=== PATIENT | male | born 1945 | race Caucasian/White ===

== ENCOUNTER 2016-09-03 09:53 | Emergency (ER) | payer OTHER ==
[~2016-09-03] VITALS: Ht 182.9 cm; Wt 126.0 kg
[~2016-09-03 09:53] MED LIST: AMLO-110 PO; ASPI-435 PO; ATEN-173 PO; CLOP1TAB15 PO; FLV1 PO; HYDC25 PO; LISI10TA PO; NITR0.4S UT; OXGN; VTMB12 PO
[2016-09-03 10:03] VITALS: TEMP 36.3; Ht 182.9 cm; Wt 126.0 kg
--- NOTE | 2016-09-03 10:13 | EMERGENCY ROOM VISIT NOTE ---
ED Visit Note First contact with patient: 10:07 I have seen and examined this patient with Stephanie Choi and generally agree with the treatment plan as discussed. Problem List Medical Problems: (1) Coronary Atherosclerosis Of [place] Coronary Vessel Status: Chronic (2) Diab Nickie Wo Compl, Type Ii Or Unspec Type, Not Uncntrld Status: Chronic (3) Esophageal Reflux Status: Chronic (4) Heart Disease Nos Status: Chronic (5) History of left heart catheterization (LHC) Permanent Comment: 02/01/00 PTCA and Stent of 90% prox LAD lesion. 50%left circ untreated. 2013 LHC DESx2 to LAD Status: Chronic (6) Hyperlipidemia Nec/Nos Status: Chronic (7) Hypertension Nos Status: Chronic (8) Morbid Obesity Status: Chronic (9) MARKO (obstructive sleep apnea) Status: Chronic (10) Palpitations Status: Chronic Surgical Problems: (1) H/O colonoscopy Status: Chronic (2) History of cataract surgery Status: Chronic Current/Historical Medications Scheduled Amlodipine (Norvasc), 5 MG PO DAILY Aspirin (Aspirin 81), 81 MG PO QPM Atenolol (Tenormin), 25 MG PO QAM Clopidogrel (Plavix), 75 MG PO DAILY Cyanocobalamin (Vitamin B-12), 500 MCG PO QAM Folic Acid (Folic Acid), 1 MG PO QAM Hydrochlorothiazide (Hctz *), 12.5 MG PO QAM Lisinopril (Prinivil), 10 MG PO BID Nitroglycerin (Nitrostat), 0.4 MG UT PRN Oxygen (Oxygen), 3 LITERS NA HS Allergies Coded Allergies: Iodinated Contrast Media (Verified Allergy, Unknown, HIVES, 12/23/15) Shellfish (Verified Allergy, Unknown, UNKN, 12/23/15) Statins (Verified Allergy, Unknown, UNKN, 12/23/15) Vital Signs Date Time Temp Pulse Resp B/P Pulse Ox O2 Delivery O2 Flow Rate FiO2 09/03/16 10:03 36.3 55 18 102/69 93 Room Air Departure Information Referrals Zev Lemus M.D. (PCP) Patient Instructions [facility]
[2016-09-03] MEDS ORDERED: PRD/25 PO ×2 (10:18)
[2016-09-03] MEDS ORDERED: HYDR200T5 PO ×2 (10:18)
[2016-09-03] MEDS ORDERED: OXYC1TAB3 PO (10:20)
[2016-09-03] MEDS ORDERED: HYDR25TA5 PO ×2 (10:21)
--- NOTE | 2016-09-03 10:46 | DIAGNOSTIC IMAGING REPORT ---
LEFT ANKLE MIN 3 VIEWS ROUTINE CLINICAL HISTORY: Left ankle pain status post trauma COMPARISON: None. DISCUSSION: There is an acute oblique fracture of the distal fibula. There is disruption of the ankle mortise with posterior lateral displacement of the talus with respect to the tibia. There are multiple age-indeterminate bony fragments adjacent to the medial malleolus. There is bimalleolar soft tissue edema IMPRESSION: 1. Acute oblique fracture of the distal fibula 2. Age-indeterminate avulsion fractures at the level of the medial malleolar tip 3. Disruption of the ankle mortise Electronically signed by: Tulio Rockwell M.D. 09/03/2016 10:44 AM Dictated Date/Time: 09/03/2016 10:42 AM
--- NOTE | 2016-09-03 10:52 | DIAGNOSTIC IMAGING REPORT ---
LEFT FOOT MIN 3 VIEWS ROUTINE CLINICAL HISTORY: Left foot pain status post trauma COMPARISON: None DISCUSSION: There is suspected disruption of the ankle mortise as visualized in the AP view. There are advanced arthritic changes the level the first metatarsal phalangeal joint. No acute fractures of the foot proper are visualized. IMPRESSION: 1. No acute fractures of the foot proper are visualized 2. Moderately advanced arthritic changes at the level the first metatarsal phalangeal joint 3. Suspected disruption of the ankle mortise. Electronically signed by: Tulio Rockwell M.D. 09/03/2016 10:50 AM Dictated Date/Time: 09/03/2016 10:47 AM
[2016-09-03] MEDS ORDERED: MoRPHine SULFATE 2 MG/ML CARP ONE (11:58)
--- NOTE | 2016-09-03 12:46 | DIAGNOSTIC IMAGING REPORT ---
LEFT ANKLE MIN 3 VIEWS ROUTINE CLINICAL HISTORY: Fracture subluxation COMPARISON: None. DISCUSSION: There is been interval reduction of the previous described subluxation. There is persistent mild widening of the medial ankle mortise. There is an oblique fracture of the distal fibula. There are multiple bony fragments adjacent to the medial malleolus. There is been interval application of a fiberglass cast IMPRESSION: 1. Interval reduction of the previous described fracture subluxation. There is mild residual widening of the medial ankle mortise. Electronically signed by: Tulio Rockwell M.D. 09/03/2016 12:43 PM Dictated Date/Time: 09/03/2016 12:42 PM
--- NOTE | 2016-09-03 12:56 | EMERGENCY ROOM VISIT NOTE ---
History First contact with patient: 10:07 Chief Complaint: FOOT PAIN Stated Complaint: LEFT FOOT POSSIBLY BROKEN FROM FALL History of Present Illness The patient is a 71 year old male who presents to the Emergency Room with complaints of left foot and ankle injury. The patient states last night he was outdoors and fell injuring his left foot and ankle. The patient denies any dizziness prior to the fall. The patient states he had to crawl into the house. The called a family member to help get him up off the floor. They did not call 911. The patient states that his foot seems like he does not have control of where it goes. The patient admits to some numbness in his foot. He took an OxyIR at 4 AM for the pain. He states since that time he feels slightly dizzy. He states the pain is very minimal since taken OxyIR. The patient denies any chest pain or shortness of breath. The patient has seen Dr. Dorsey in the past for right knee surgery. Review of Systems 10 system review was performed and was negative unless stated otherwise history of present illness. Past Medical/Surgical History Medical Problems: (1) Coronary Atherosclerosis Of [place] Coronary Vessel (2) Diab Nickie Wo Compl, Type Ii Or Unspec Type, Not Uncntrld (3) Esophageal Reflux (4) Heart Disease Nos (5) History of left heart catheterization (LHC) (6) Hyperlipidemia Nec/Nos (7) Hypertension Nos (8) Morbid Obesity (9) MARKO (obstructive sleep apnea) (10) Palpitations Surgical Problems: (1) H/O colonoscopy (2) History of cataract surgery Family History FH: heart disease Social History Smoking Status: Never Smoker Marital Status: Housing Status: lives with significant other Occupation Status: retired Current/Historical Medications Scheduled Amlodipine (Norvasc), 5 MG PO DAILY Aspirin (Aspirin 81), 81 MG PO QPM Atenolol (Tenormin), 25 MG PO QAM Clopidogrel (Plavix), 75 MG PO DAILY Hydrochlorothiazide (Hydrochlorothiazide), 12.5 MG PO QAM Hydroxychloroquine Sulfate (Plaquenil), 200 MG PO HS Lisinopril (Prinivil), 10 MG PO BID Nitroglycerin (Nitrostat), 0.4 MG UT PRN Oxygen (Oxygen), 3 LITERS NA HS Prednisone (Prednisone), 7.5 MG PO QAM Scheduled PRN Oxycodone Ir (Roxicodone Ir), 10 MG PO Q6H PRN for Pain Allergies Coded Allergies: Iodinated Contrast Media (Verified Allergy, Unknown, HIVES, 09/03/16) Shellfish (Verified Allergy, Unknown, UNKN, 09/03/16) Statins (Verified Allergy, Unknown, UNKN, 09/03/16) Physical Exam Vital Signs Date Time Temp Pulse Resp B/P Pulse Ox O2 Delivery O2 Flow Rate FiO2 09/03/16 11:12 55 107/76 95 Room Air 09/03/16 10:16 57 09/03/16 10:03 36.3 55 18 102/69 93 Room Air Physical Exam GENERAL: 71-year-old obese white male appears in no acute distress. MENTAL Status: Patient is alert and oriented 3. EYES: PERRLA. EOMs intact. NECK: Supple, no lymphadenopathy noted. No carotid bruits noted. LUNGS: Clear auscultation without wheezes rales or rhonchi. CARDIAC: Regular rate and rhythm without murmur. Pulses is full and equal throughout. LEFT FOOT/ANKLE: The patient has diffuse edema of the ankle and foot. No erythema noted. Capillary reflex is 2+. Pedal pulses in place. The patient sensation is intact to touch. Medical Decision & Procedures ER Provider Diagnostic Interpretation: LEFT ANKLE MIN 3 VIEWS ROUTINE CLINICAL HISTORY: Fracture subluxation COMPARISON: None. DISCUSSION: There is been interval reduction of the previous described subluxation. There is persistent mild widening of the medial ankle mortise. There is an oblique fracture of the distal fibula. There are multiple bony fragments adjacent to the medial malleolus. There is been interval application of a fiberglass cast IMPRESSION: 1. Interval reduction of the previous described fracture subluxation. There is mild residual widening of the medial ankle mortise. Electronically signed by: Tulio Rockwell M.D. 09/03/2016 12:43 PM Dictated Date/Time: 09/03/2016 12:42 PM LEFT ANKLE MIN 3 VIEWS ROUTINE CLINICAL HISTORY: Left ankle pain status post trauma COMPARISON: None. DISCUSSION: There is an acute oblique fracture of the distal fibula. There is disruption of the ankle mortise with posterior lateral displacement of the talus with respect to the tibia. There are multiple age-indeterminate bony fragments adjacent to the medial malleolus. There is bimalleolar soft tissue edema IMPRESSION: 1. Acute oblique fracture of the distal fibula 2. Age-indeterminate avulsion fractures at the level of the medial malleolar tip 3. Disruption of the ankle mortise Electronically signed by: Tulio Rockwell M.D. 09/03/2016 10:44 AM Dictated Date/Time: 09/03/2016 10:42 AM LEFT FOOT MIN 3 VIEWS ROUTINE CLINICAL HISTORY: Left foot pain status post trauma COMPARISON: None DISCUSSION: There is suspected disruption of the ankle mortise as visualized in the AP view. There are advanced arthritic changes the level the first metatarsal phalangeal joint. No acute fractures of the foot proper are visualized. IMPRESSION: 1. No acute fractures of the foot proper are visualized 2. Moderately advanced arthritic changes at the level the first metatarsal phalangeal joint 3. Suspected disruption of the ankle mortise. Electronically signed by: Tulio Rockwell M.D. 09/03/2016 10:50 AM Dictated Date/Time: 09/03/2016 10:47 AM Medications Administered Medications (Trade) Dose Ordered Sig/Bee Route Start Time Stop Time Status Last Admin Dose Admin Morphine Sulfate (MoRPHine SULFATE INJ) 4 mg STK-MED ONCE .ROUTE 09/03/16 11:58 09/03/16 11:59 DC 09/03/16 11:56 2 MG ECG Indication: other (dizziness) Rhythm: sinus bradycardia Findings: ST elevation Change: no significant change ED Course The patient was evaluated. The patient was placed on a monitor. EKG was ordered and interpreted as above. The patient does have ST elevation in the inferior leads but as compared to prior EKG from August 2013 this is unchanged. X-rays of the foot and ankle were ordered and interpreted by the radiologist as above with fracture and dislocation of the ankle joint. The patient was offered pain medication but declined. The patient was independently evaluated by Dr. Nunez who agrees with treatment plan. Orthopedics was consulted. Orthopedics evaluated the patient and reduced the dislocation and the patient was placed in a splint. Please see orthopedics note. The patient has crutches at home to aid in ambulation. Postreduction films revealed reduction of the dislocation. The patient was discharged home in stable condition. Medical Decision Differential diagnosis include ankle fracture, ankle dislocation, foot fracture , contusion Impression Primary Impression: Ankle dislocation Additional Impression: Fibula fracture Departure Information Dispostion Home / Self-Care Condition GOOD Referrals Oesterling, Zev,M.D. (PCP) Adams Cid D.O. Forms HOME CARE DOCUMENTATION FORM, IMPORTANT VISIT INFORMATION Patient Instructions ED Splint Care [facility] Additional Instructions Tylenol as needed for pain. Stop Plavix as directed by orthopedics. Keep leg elevated whenever possible. Use crutches to aid in ambulation. Keep splint as dry as possible. Appointment with Dr. Cid on September 07 at 10:40 AM Problem Qualifiers Primary Impression: Ankle dislocation Encounter type: initial encounter Laterality: left Qualified Codes: S93.05XA - Dislocation of left ankle joint, initial encounter Additional Impression: Fibula fracture Encounter type: initial encounter Fibula location: distal Fracture type: closed Laterality: left
--- NOTE | 2016-09-03 13:24 | CONSULTATION REPORT ---
DATE OF CONSULTATION: 09/03/2016 REASON FOR CONSULT: Left ankle fracture. HISTORY OF PRESENT ILLNESS: The patient is a 71-year-old white male who states that he was on yard swing in the evening and when he got up he lost his balance and the swing came back and hit him and knocking him to the ground. He twisted his left ankle and had immediate pain and swelling in the ankle. He could not bear weight on it. He states that he crawled approximately 40 yards to his house until he was able to get help. He stayed in the house overnight and kept his foot elevated, but it continued to have severe pain and came into the Emergency Room this morning. X-rays were taken and were found to have a left distal fibula fracture with also some small avulsion type fractures of the medial malleolar tip and some disruption of the ankle mortise. We were then asked to see this patient for further care. The patient denies loss of consciousness and denies any chest pain or shortness of breath prior to or after the fall. PAST MEDICAL HISTORY: CAD with stent placement in the past, diabetes mellitus, type 2, GERD, rheumatoid arthritis, morbid obesity, hypertension, hyperlipidemia, obstructive sleep apnea. PAST SURGICAL HISTORY: Right total knee arthroplasty. He has had a previous left ankle fracture in the past as well as a right ankle fracture in the past. Stent placement as noted above and history of colonoscopy. MEDICATIONS: Amlodipine 5 mg p.o. daily, aspirin 81 mg p.o. q.p.m., atenolol 25 mg p.o. q.a.m., clopidogrel 75 mg p.o. daily, vitamin B12 500 mcg p.o. q.a.m., folic acid 1 mg p.o. q.a.m., hydrochlorothiazide 12.5 mg p.o. q.a.m., lisinopril 10 mg p.o. b.i.d., nitroglycerin 0.4 mg sublingual p.r.n., oxygen 3 liters per nasal cannula at bedtime. ALLERGIES: IODINATED CONTRAST, SHELLFISH AND STATINS. FAMILY HISTORY: Noncontributory. SOCIAL HISTORY: The patient has used alcohol on occasion. Former tobacco user. REVIEW OF SYSTEMS: The patient has had no recent fevers, chills, unexplained weight loss or weight gain. No flu or cold-like symptoms. No increased cough or sputum production. No noticeable increase in shortness of breath at rest. No recent chest pain. No recent irregular heart. No abdominal pain. No unusual nausea, vomiting or diarrhea. No hematuria, pyuria, or dysuria. No seizures, no dizziness or lightheadedness. PHYSICAL EXAMINATION: VITAL SIGNS: Most recent vital signs showed temperature 36.4, pulse 66, respirations 18, BP on entering the ER was 133/84, pulse ox was 99 on 2 liters of O2 per nasal cannula. GENERAL: The patient is lying in bed. He is awake and alert, oriented x3, and pain appears to be controlled at this time. EXTREMITIES: Examination of his left lower extremity, he has his hip in external rotation and his ankle is swollen and has some mild ecchymosis noted. Both the medial and lateral malleoli are felt and are tender on palpation and he has moderate swelling noted of the ankle at this time. Capillary refill of the toes are less than 2 seconds. Toes are cool to the touch and dorsalis pedis pulse is strong. He is able to move his toes at this time and has some decreased sensation of which he has had for some time now with his history of diabetes. No pain in the left knee or hip. Right lower extremity is essentially benign at this time and he has no complaints and range of motion is within normal limits. Upper extremities are benign at this time and he denies any thoracic, lumbar or cervical neck pain from the fall. NEUROVASCULAR: The patient is alert and oriented x3. No gross motor deficits or sensory deficits are noted other than some mild numbness in his toes, which he has had from neuropathy and limited range of motion of his left ankle due to a fracture. X-RAY ASSESSMENT: Left oblique, lateral malleolar fracture along with avulsion type fractures of the medial malleolus with disruption of the ankle mortise. ASSESSMENT: Left distal fibula fracture along with avulsion fractures of the medial malleolus of the left ankle. PLAN: After examining the patient, he had to be placed into a posterior splint. He was then at that time given 2 mg of IV morphine and gentle longitudinal traction was placed and the ankle was placed in neutral position and a posterior splint was applied with a medial/lateral gutter splint as well. The patient tolerated the procedure well and he had no difference in sensation of his toes post-reduction and cap refill is less than 2 seconds and he continued to have a strong pulse in the dorsalis pedis. Plans will be for the patient to stop taking his Plavix at this point in time and he is to see Dr. Cid next September 07 at 10:40 a.m. for followup. The patient will likely need ORIF of the left distal fibula fracture. I will also notify Dr. Cespedes, his accounting professor to let him know of pending surgery coming up and we will be stopping his Plavix at this point in time and he may contact the patient to adjust medications as needed. TOSHIA
[2016-09-03 13:30] VITALS: BP 148/73; PULSE 60; O2SAT 97
[2016-09-07] MEDS ORDERED: MULTTAB58 PO ×2 (14:13)
[2016-09-07] MEDS ORDERED: OMEG1360 PO ×2 (14:13)
[2016-09-07] MEDS ORDERED: NAPR1TAB9 PO ×2 (14:13)
[2016-09-10] MEDS ORDERED: OXYC-57 PO ×2 (09:56)
== END 2016-09-03 13:30 | disposition home or self-care (01) ==
LOC: C.EDB 09:55 → C.EDC 13:30
DX: S82.52XA Displaced fracture of medial malleolus of left tibia, initial encounter for closed fracture (principal); S82.892A Other fracture of left lower leg, initial encounter for closed fracture; W22.8XXA Striking against or struck by other objects, initial encounter; W19.XXXA Unspecified fall, initial encounter; M19.072 Primary osteoarthritis, left ankle and foot; E11.9 Type 2 diabetes mellitus without complications; E66.01 Morbid (severe) obesity due to excess calories; G47.33 Obstructive sleep apnea (adult) (pediatric); I10 Essential (primary) hypertension; I25.10 Atherosclerotic heart disease of native coronary artery without angina pectoris; E78.5 Hyperlipidemia, unspecified; Z79.899 Other long term (current) drug therapy

== ENCOUNTER → 2016-09-10 | Day surgery (SDC) | payer OTHER ==
[2016-09-07 14:57] LABS: BASO % 0.4 %; BASO ABS # 0.04 K/uL (0-0.2); COMPLETE YES; EOS % 2.5 %; HEMATOCRIT 45.3 % (42-52); IG% 0.4 %; LYMPH ABS # 1.41 K/uL (1.2-3.4); MEAN CELL VOLUME 93.2 fL (80-100); MEAN CORPUSCULAR HEMOGLOBIN 32.1 pg (25-34); MEAN CORPUSCULAR HGB CONC 34.4 g/dl (32-36); MEAN PLATELET VOLUME 9.6 fL (7.4-10.4); MONO % 6.3 %; NEUT % 76.4 %; PLATELET COUNT 270 K/uL (130-400); RED BLOOD COUNT 4.86 M/uL (4.7-6.1)
[2016-09-07 15:26] LABS: URINE APPEARANCE CLEAR (CLEAR); URINE BILIRUBIN NEG (NEG); URINE COLOR YELLOW; URINE NITRITE NEG (NEG); URINE PH 5.5 (4.5-7.5); URINE SPECIFIC GRAVITY 1.014 (1.000-1.030); UROBILINOGEN NEG (NEG)
[2016-09-07 15:27] LABS: BLOOD UREA NITROGEN 12 mg/dl (7-18); BUN/CREATININE RATIO 12.7 (10-20); CALCIUM 9.8 mg/dl (8.5-10.1); CARBON DIOXIDE 28 mmol/L (21-32); CHLORIDE 100 mmol/L (98-107); CREATININE 0.95 mg/dl (0.60-1.40); GLUCOSE 173 mg/dl (70-99); POTASSIUM 4.5 mmol/L (3.5-5.1); SODIUM 135 mmol/L (136-145)
[2016-09-07 15:36] LABS: MANUAL MICROSCOPIC REQUIRED? NO; REVIEW REQ? NO
[2016-09-08 07:39] VITALS: BMI 38.0
--- NOTE | 2016-09-09 22:11 | HISTORY & PHYSICAL EXAMINATION ---
DATE OF ADMISSION: 09/10/2016 SUBJECTIVE AND CHIEF COMPLAINT: Left ankle pain. HISTORY OF PRESENT ILLNESS: This is a patient who had an injury to his left ankle and then noted he had significant deformity. He was taken to the Emergency Room where he was noted to have a lateral malleolus fracture but also an ankle dislocation. A reduction was performed and he was placed into a splint. He is now being set up for surgical treatment. PAST MEDICAL HISTORY: History of [place] in 08/2013, hypertension, hypercholesterolemia, sleep apnea, history of cardiac stent in 08/2013, diabetes, rheumatoid arthritis, acid reflux, obesity. SOCIAL HISTORY: The patient denies tobacco use. He has approximately 6 alcoholic drinks per week. FAMILY HISTORY: Noncontributory. PAST SURGICAL HISTORY: Knee replacement and cardiac stent. ALLERGIES: SHELLFISH, STATIN DRUGS, ROLAN INHIBITORS. CURRENT MEDICATIONS: Amlodipine 5 mg 1 p.o. daily, HCTZ 12.5 mg 1 p.o. daily, atenolol 25 mg 1 p.o. b.i.d., lisinopril 10 mg 1 p.o. daily, prednisone 7.5 mg 1 p.o. daily, aspirin 81 mg p.o. daily, Plaquenil 200 mg 1 p.o. at bedtime, multivitamin p.o. daily, Plavix 75 mg 1 p.o. daily which was stopped 6 days ago, and Victoza 0.6 mg/0.1 mL, inject 0.2 mL subcu daily. OBJECTIVE PHYSICAL EXAMINATION: GENERAL: The patient is alert and oriented x3. He is in no acute distress. He is a well-dressed, well-nourished 71-year-old male whose affect is appropriate. CARDIOVASCULAR: Heart has a regular rhythm and rate without murmurs. LUNGS: Clear to auscultation bilateral. Dorsalis pedis and posterior tib pulse +2/4. Cap refill is less than 2 seconds. LYMPHATIC: No evidence of any swollen lymph nodes. MUSCULOSKELETAL: The patient is nonweightbearing on the left lower extremity. Upon inspection of left lower extremity, he is noted to have moderate swelling of left ankle. There is mild to moderate ecchymosis of the ankle. No range of motion or strength testing was performed. He is noted to have tenderness on both the medial and lateral aspect of the ankle. SKIN: There are no scars, rashes or ulcers noted. NEUROLOGIC: Sensation normal and intact distally. X-RAY EXAM: Multiple views of left ankle demonstrate a displaced lateral malleolus fracture with opening of the ankle mortise. There also appears to be an undisplaced moderate size avulsion fracture of the medial malleolus. ASSESSMENT AND DIAGNOSES: 1. Left ankle lateral malleolus fracture. 2. Medial malleolus avulsion fracture. 3. Syndesmotic disruption. PLAN: Above assessment was discussed with the patient. At this time, it was recommended the patient undergo left ankle ORIF of the lateral malleolus fracture, ORIF of the syndesmotic rupture, and excision of medial malleolus avulsion fracture. All potential risks, benefits, complications, alternatives and rehab have been discussed with the patient. At this time, he wishes to proceed with the surgery as scheduled. He has been scheduled for surgery on 09/10/2016 with the plan to restart his Plavix and aspirin on postop day #1.
[~2016-09-10] VITALS: Ht 182.9 cm; Wt 126.4 kg
[~2016-09-10] MED LIST changes: +BACITRACIN 50,000 UNITS IR ONE; +BUPIVACAINE 0.5 % 5 MG/1 ML PF 10ML VIAL ONE; +BUPIVACAINE/EPINEPHRINE 0.5% MPF 1:200,000 30 ML VIAL ONE; +CEFAZOLIN 3000 MG/65 ML D5W IV SCH; +CLONIDINE HCL 100 MCG/ML SYRINGE ONE; +DEXAMETHASONE SOD INJ 4 MG/ML VIAL ONE; +EpHEDrine SULFATE 50MG/5ML SYR ONE; +FENTANYL CITRATE INJ 50 MCG/1 ML 2 ML VIAL IV PRN; +FENTANYL CITRATE INJ 50 MCG/1 ML 2 ML VIAL ONE; +GLYCOPYRROLATE INJ 0.2 MG/ML VIAL ONE; +HYDR200T5 PO; +HYDR25TA5 PO; +LACTATED RINGER'S 1000ML 1,000 ML IV PRN; +LACTATED RINGER'S 1000ML 1,000 ML IV SCH; +LIDOCAINE HCL 2% 2 ML VIAL (20MG/ML) ONE; +MIDAZOLAM HCL 1 MG/ML 2ML VIAL ONE; +MULTTAB58 PO; +NAPR1TAB9 PO; +NEOSTIGMINE METHYLSULFATE 5 MG/5 ML SYR ONE; +NURSING VERBAL MED ORDER ONE; +OMEG1360 PO; +ONDANSETRON INJ 2 MG/ML 2 ML VIAL IV PRN; +ONDANSETRON INJ 2 MG/ML 2 ML VIAL ONE; +OXYC-57 PO; +OXYC1TAB3 PO; +OXYCODONE/ACETAMINOPHEN 5-325 TAB ONE; +OXYCODONE/ACETAMINOPHEN 5-325 TAB PO PRN; +PRD/25 PO; +PROPOFOL IV EMULSION 10 MG/ML 20 ML VIAL IV ONE; +ROCURONIUM BROMIDE 10 MG/ML 5 ML VIAL ONE
[2016-09-10 05:50] VITALS: BP 137/75; PULSE 59; TEMP 36.8; O2SAT 96; Ht 182.9 cm; Wt 126.4 kg
--- NOTE | 2016-09-10 07:33 | History & Physical Bridge Note ---
H&P Re-Evaluation Bridge Note: I have examined the patient, reviewed the History & Physical and in the interval since the performance of the History & Physical I have noted the following changes of clinical significance: No changes noted
--- NOTE | 2016-09-10 09:47 | [facility] Post Operative Brief Note ---
Immediate Operative Summary Operative Date Sep 10, 2016. Pre-Operative Diagnosis Left ankle lateral malleolus fracture; Medial malleolus avulsion fracture; Syndesmotic disruption Post-Operative Diagnosis Left ankle lateral malleolus fracture; Medial malleolus avulsion fracture; Syndesmotic disruption, Tear Deltoid Ligament Procedure(s) Performed Left Ankle Open Reduction Internal Fixation Lateral Malleolus Fracture; Open Reduction Internal Fixation Syndesmosis Rupture; Excision Medial Malleolus Avulsion Fracture; Repair of Deltoid Ligament Surgeon Dr. Mamadou Cid Infant And Toddler Teacher Surgeon(s) Todd Cifuentes PA-C Estimated Blood Loss 10mL Findings See Dict Specimens none per surgeon Drains None Anesthesia GLMA w/ Popliteal Block and Saphenous block Complication(s) None Disposition Recovery Room / PACU
--- NOTE | 2016-09-10 10:01 | Discharge Instructions ---
Discharge Instructions Date of Service Sep 10, 2016. Admission Reason for Admission: Left Ankle Lateral Malleolus Fracture, Medial Mall Discharge Discharge Diagnosis / Problem: left lateral malleolus fracture, medial malleolus avulsion fracture Discharge Goals Goal(s): Decrease discomfort, Improve function Activity Recommendations Activity Limitations: per Instructions/Follow-up section Weightbearing Status: Left non-weightbearing . Instructions / Follow-Up Instructions / Follow-Up ACTIVITY RECOMMENDATIONS: Limitations: No weight bearing to affected limb at all times. SPECIAL CARE INSTRUCTIONS: * Some drainage onto the dressing is normal and is no cause for alarm. * Some swelling is natural especially after walking. * When resting, keep your foot elevated above the level of your heart. * Call [facility] if you notice: -Increased drainage -Fever over 101 degrees F -Severe constant pain * You may restart your Plavix and Aspirin prescriptions tomorrow, 09.11.16. BANDAGE: * Leave bandage/cast in place unless otherwise directed. * Keep bandage/cast dry at all times. FOLLOW UP VISIT WITH DR. STERN If appointment is not already scheduled: Please call [facility] after you get home today to schedule a follow-up appointment for [address] Stern at . Current Hospital Diet Patient's current hospital diet: Discharge Diet Recommended Diet: Regular Diet Procedures Procedures Performed: Left Ankle Open Reduction Internal Fixation Lateral Malleolus Fracture; Open Reduction Internal Fixation Syndesmosis Rupture; Excision Medial Malleolus Avulsion Fracture; Repair of Deltoid Ligament Pending Studies Studies pending at discharge: no Medical Emergencies . Who to Call and When: Medical Emergencies: If at any time you feel your situation is an emergency, please call 911 immediately. . Non-Emergent Contact Non-Emergency issues call your: Surgeon Call Non-Emergent contact if: temperature is above 101, your pain is not controlled, your pain is worsening . "Provider Documentation" section prepared by Todd Cifuentes. . VTE Core Measure Inpt VTE Proph given/why not?: SCD's
--- NOTE | 2016-09-10 10:24 | OPERATIVE REPORT ---
DATE OF OPERATION: 09/10/2016 PREOPERATIVE DIAGNOSES: 1. Left displaced lateral malleolus fracture. 2. Syndesmotic disruption. 3. Avulsion fracture of the medial malleolus. POSTOPERATIVE DIAGNOSIS: Same as above. In addition, deltoid ligament tear. PROCEDURE: 1. Open reduction internal fixation left lateral malleolus fracture. 2. Open reduction internal fixation and syndesmotic disruption. 3. Excision avulsion fracture of the medial malleolus. 4. Repair of deltoid ligament tear. SURGEON: Dr. Cid. PRODUCTION CONTROL TECHNOLOGIST: Todd Cifuentes PA-C who was present for patient positioning, sterile prep and drape, management of retractors and instruments. He was present through the critical portions of the case including wound closure, application of sterile dressing and transport of the patient to recovery. ANESTHESIA: General LMA with popliteal block with supplemental saphenous block. SPECIMENS: None. DRAINS: None. COMPLICATIONS: None. BLOOD LOSS: 10 mL. PERTINENT HISTORY: This is a 71-year-old gentleman who sustained a twisting fall on his left ankle, unable to ambulate, seen in the Emergency Department. Radiographs and noted to have a displaced lateral malleolus fracture, medial malleolar avulsion fracture and syndesmotic disruption. He was placed in a splint and referred to orthopedics and at that point the patient was then scheduled for surgery as indicated. All potential risks, benefits, complications, alternatives, rehab, potential for incomplete relief of symptoms, need for further surgery, DVT, PE, , persistent pain, swelling, scarring, weakness, neurovascular injury, wound complications, hardware breakage, nonunion, malunion were discussed with the patient. The patient decided to proceed with the procedure as indicated. OPERATION AND FINDINGS: PROCEDURE: After popliteal block was administered, the patient was taken to the operative suite, placed supine on the operating room table. After review of the consent and identification of proper operative site, the patient was anesthetized, LMA was placed. Tourniquet was placed high on the left thigh over cast padding. Left lower extremity was then sterilely prepped and draped in the usual fashion, elevated and exsanguinated with Esmarch bandage, tourniquet inflated to 350 mmHg. Next, a 15 blade scalpel was used to make an incision centered over the lateral malleolus laterally. The incision was deepened through subcutaneous tissue. Meticulous hemostasis was ensured with electrocautery. Full thickness skin flaps were developed. Sensory cutaneous nerves identified, freed, retracted, and protected when possible. Next, the peroneal tendons were identified, retracted and protected. Next, periosteum overlying the fracture was identified and incised with 15 blade scalpel extending proximally and distally. The fracture ends were then carefully dissected. Next Weitlaner retractor was placed in the incision for exposure and then the fracture ends were then carefully debrided and irrigated with copious amounts of sterile normal saline and a small dental pick. Next, reduction was performed with large bone forceps which were used to stabilize and align the fracture in near anatomic position under live fluoroscopic assistance followed by placement of a single 2.5 mm lag screw from anterior to posterior. Next, a 10-hole 1/3 tubular locking Synthes stainless steel plate was then contoured and then firmly affixed to the lateral aspect of the malleolus using a single nonlocking compression screw. Next, the remainder of the locking screws were applied with the exception of a central hole left at the level of the syndesmosis. Next, stress x-rays were obtained noting instability of the syndesmosis and then a single 4.5 mm large fragment screw was placed with the foot held in neutral dorsiflexion crossing from the lateral malleolus through the fibula and into the tibia. Next, the wound was irrigated with sterile normal saline until clear. Next, the deep soft tissue was closed over the plate with 2-0 Vicryl. The dermis was closed using buried interrupted 3-0 Vicryl, skin was closed with 4-0 nylon. Next, a 15 blade scalpel was used to make an incision over the medial malleolus. A curvilinear incision was made with a 15 blade scalpel. Careful dissection was performed with Metzenbaum scissors and forceps. Electrocautery was used to assure hemostasis. Next, the deltoid ligament was noted to be torn as well as the anterior medial aspect of the joint capsule. This was carefully elevated. Next, the large avulsion fracture fragment from the medial malleolus was identified and removed with a rongeur. After this was completed, the wound was copiously irrigated with sterile normal saline until clear, then the deltoid ligament anterior medial aspect of the capsule was then closed using #2 Ultrabraid sutures x2. Next, final irrigation was performed with sterile normal saline. The dermis was closed using buried interrupted 3-0 Vicryl, skin was closed using 4-0 nylon. Next, approximately 15-20 mL of 0.5% Marcaine with epinephrine was injected around the saphenous nerve medially and around the anna marie-incisional region on the medial aspect of the ankle for postop pain and bleeding control. Next, sterile compressive dressing was applied as well a bulky Wilfrid Knutson plaster splint placed in neutral dorsiflexion. The tourniquet was released. The patient was awakened and taken to recovery in stable condition. I attest to the content of the Intraoperative Record and any orders documented therein. Any exceptio ns are noted below.
--- NOTE | 2016-09-10 10:27 | DIAGNOSTIC IMAGING REPORT ---
LEFT ANKLE MIN 3 VIEWS ROUTINE CLINICAL HISTORY: Postop examination COMPARISON: 09/03/2016 DISCUSSION: The fine bony details obscured by an overlying plaster cast. The distal fibular fracture has been fixated with a lateral metallic plate and multiple screws. There is additional transverse screw traversing the distal tibia fibular syndesmosis. The ankle mortise appears intact. IMPRESSION: Interval reduction of the fracture subluxation with internal fixation as described above. Electronically signed by: Tulio Rockwell M.D. 09/10/2016 10:26 AM Dictated Date/Time: 09/10/2016 10:18 AM
[2016-09-10 10:30] VITALS: BP 99/50; PULSE 58; TEMP 36.4; O2SAT 93
--- NOTE | 2016-09-10 10:36 | Anesthesiology Progress Note ---
Anesthesia Post Op Note Date & Time Sep 10, 2016 at 10:35 Vital Signs Pain Intensity: 1 Vital Signs Past 12 Hours Date Time Temp Pulse Resp B/P Pulse Ox O2 Delivery O2 Flow Rate FiO2 09/10/16 10:25 36.5 62 18 105/66 94 Room Air 09/10/16 10:20 64 18 110/64 95 Room Air 09/10/16 10:10 62 18 114/71 99 Mask 10 09/10/16 10:00 66 18 115/71 99 Mask 10 09/10/16 09:51 36.3 73 18 125/78 99 Mask 10 09/10/16 05:50 36.8 59 20 137/75 96 Room Air Notes Mental Status: alert / awake / arousable, participated in evaluation Pt Amnestic to Procedure: Yes Nausea / Vomiting: adequately controlled Pain: adequately controlled Airway Patency, RR, SpO2: stable & adequate BP & HR: stable & adequate Hydration State: stable & adequate Anesthetic Complications: no major complications apparent Pt doing well.
[2016-09-10 11:00] VITALS: BP 98/55; PULSE 57; TEMP 36.6; O2SAT 92
--- NOTE | 2016-09-10 11:19 | DIAGNOSTIC IMAGING REPORT ---
LEFT ANKLE MIN 3 VIEWS ROUTINE CLINICAL HISTORY: ORIF LEFT ANKLE FX Fluoroscopy time: 22 seconds. 2 fluoroscopic spot images. FINDINGS: There is a lateral cortical plate transfixed with screws bridging a distal fibular fracture. There is also a single syndesmotic screw. The hardware is intact. The alignment is anatomic. 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 IMPRESSION: Fluoroscopy provided for internal fixation of a lateral malleolus fracture. Electronically signed by: Cornell Morrison M.D. 09/10/2016 11:17 AM Dictated Date/Time: 09/10/2016 11:16 AM
[2016-09-10 11:30] VITALS: BP 92/60; PULSE 61; O2SAT 92
== END | disposition home or self-care (01) ==
LOC: C.ACU 05:25
PROVIDERS: ATTEND Orthopaedic Surgery Sports Medicine
DX: S82.842A Displaced bimalleolar fracture of left lower leg, initial encounter for closed fracture (principal); S93.05XA Dislocation of left ankle joint, initial encounter; I10 Essential (primary) hypertension; E78.00 Pure hypercholesterolemia, unspecified; E11.9 Type 2 diabetes mellitus without complications; I25.2 Old myocardial infarction; K21.9 Gastro-esophageal reflux disease without esophagitis; G47.30 Sleep apnea, unspecified; M06.9 Rheumatoid arthritis, unspecified; E66.9 Obesity, unspecified; Z95.5 Presence of coronary angioplasty implant and graft; Z79.82 Long term (current) use of aspirin; Z79.899 Other long term (current) drug therapy; W18.30XA Fall on same level, unspecified, initial encounter

== ENCOUNTER 2020-01-03 13:49 | Inpatient (IN) ==
--- OUTSIDE RECORDS SUMMARY | 2020-01-03 13:51 | External Medical Summary | Continuity of Care Document ---
:1945 Author Name Rozina Haywood Address Unavailable Unavailable , Care Team Providers Name Role Phone Nette Haywood Unavailable [email or web address] Unavailable Unavailable Problems Active medical history not documented Allergies and Adverse Reactions Allergy history not documented Medications Medications not documented Procedures Procedures not documented Immunizations Immunizations not documented Plan of Treatment Planned Observations Planned Goals not documented Results No Known Results Results not documented
[2020-01-03] MEDS ORDERED: ASPIRIN CHEW 324 MG PO STA ×2 (13:58→14:07)
[2020-01-03] MEDS ORDERED: SODIUM CHLORIDE 0.9% 500 ML IV SCH (14:00)
[2020-01-03] MEDS: NITROGLYCERIN SL 0.4 MG/TAB TAB SL PRN ×2 (14:10→14:38)
--- NOTE | 2020-01-03 14:11 | XRay Report ---
XR chest 1V portable HISTORY: 74 years-old Male Chest Pain . Acute atypical chest pain COMPARISON: Chest radiograph 02/28/2018 TECHNIQUE: Portable AP view of the chest FINDINGS: Cardiomediastinal and hilar silhouettes are within normal limits. No pneumothorax, pleural effusion, airspace consolidation or overt pulmonary edema. Degenerative changes of the shoulders and spine. Mil d right hemidiaphragmatic elevation. IMPRESSION: No acute process. ACT 112: Negative or not required by law. The above report was generated using voice recognition software. It may contain grammatical, syntax o r spelling errors. Electronically signed by: Carter Dumont M.D. 01/03/2020 2:09 PM
--- NOTE | 2020-01-03 14:12 | Emergency Department Note ---
Impression & Plan Non-ST elevation ME (NSTEMI), Chest pain, Elevated troponin, Unstable angina pectoris ED Provider Note NAME: ELVIS SPEARS AGE: 74 SEX: M : 1945 ARRIVES VIA: Walk-In INFORMANT: Patient ED PROVIDER(S): Neftaly Durham DO CHIEF COMPLAINT: Chest pain HPI: Patient is a 74-year-old male who presents the ER for precordial chest pain. He describes as a heaviness/tightness in the middle of his left chest. Goes up to his left jaw and feels as though a ball is in his jaw. He has pain in his left arm. This feels consistent with his 2 previous heart attacks. He notes it started earlier this morning. He has no shortness of breath. No belly pain nausea vomiting or diarrhea. No dysuria urgency or frequency. No other exacerbating or remitting factors. He did not take aspirin today. ROS: See above HPI for pertinent positives & negatives. A total of 10 systems reviewed and were otherwise negative. PAST MEDICAL HISTORY:See Below PAST SURGICAL HISTORY:See Below FAMILY HISTORY:See Below SOCIAL HISTORY:See Below HOME MEDICATIONS:See Below ALLERGIES:See Below VITALS:See Below PHYSICAL EXAMINATION: GENERAL: Sitting up in bed, alert, slightly ill-appearing, disheveled, mildly diaphoretic EYE EXAM: normal conjunctiva. LUNGS: Clear to auscultation. Normal chest wall mechanics HEART: no murmurs, S1 normal and S2 normal ABDOMEN: abdomen soft, non-tender, normo-active bowel sounds, no masses, no rebound or guarding. BACK: Back is symmetrical on inspection and there is no deformity, no midline tenderness, no CVA tenderness. SKIN: no rashes and no bruising UPPER EXTREMITIES: upper extremities are grossly normal. LOWER EXTREMITIES: No pitting edema. Calves are equal bilateral NEURO EXAM: Normal sensorium, cranial nerves II-XII grossly intact, normal speech, no gross weakness of arms, no gross weakness of legs. MEDICAL DECISION MAKING: Patient is a 72-year-old male with a previous history of ME who presents the ER for precordial chest pain which feels like his previous MIs. IV was established blood work was obtained. EKG showed changes in the high lateral leads. He was taken and seen in a 1. Patient was given aspirin and nitro. His chest pain waxed and waned for over an hour in the ER as were able to get him chest pain- free multiple times. His EKG is actually improved until his fifth EKG which showed worsening ST segment elevations in the inferior leads. Just prior to this fifth EKG I had called cardiology and patient was given heparin bolus and heparin drip for the unstable angina as it had come back again. Dr. Cespedes who promptly evaluated the patient at bedside. With the persistent chest pain after aspirin, multiple rounds of nitro and IV heparin drip and bolus in combination with dynamic EKG changes patient was taken to the [facility] emergently. Patient denied any history of brain bleeds, coughing up blood, vomiting blood, urinating blood, recent surgery or trauma. Triage Nursing notes reviewed. Prior medical records reviewed Vital Signs: reviewed and remarkable for hypertensive Differential diagnosis: Differential diagnoses includes but is not limited to acute coronary syndrome, myocardial infarction, pericarditis, pulmonary embolus, aortic dissection, pneumonia, pneumothorax, musculoskeletal, shingles, esophageal. ER treatment provided: See below Diagnostics interpreted by me: ECG: Sinus rhythm rate of 64 Normal axis Inferior Q waves with ST segment elevations T WI in aVL with ST depressions TWI in the septal leads. Changes in aVL and V2 were negative. Cardiac Monitoring: An order was placed for continuous cardiac monitoring. The monitor shows a rate of 63 with sinus rhythm. Laboratory studies: As stated above and show below. Imaging studies: See below Consultation(s): Discussed with Dr. Jose Francisco Cespedes who evaluated the patient at bedside patient was taken to the cardiac [facility]. ED COURSE: Procedures: none Critical Care: I have personally spent 75 minutes of critical care time in the direct management of this patient. This includes bedside care, interpretation of diagnostic studies, and testing, discussion with consultants, patient, and family members, and other required patient management activities. This 75 minutes is in excess of all separately billable procedures. Past Med/Surg History Medical History (Updated 01/03/20 @ 19:50 by Neftaly Durham DO) Diabetes mellitus, type 2 History of left heart catheterization (LHC) "02/01/00 PTCA and Stent of 90% prox LAD lesion. 50%left circ untreated. 2013 LHC DESx2 to LAD " Hx of pancreatitis 02/2018 [facility] Myocardial Infarction 2013 OR 2014-NO RECENT CHEST PAIN PER SPOUSE On anticoagulant therapy DAILY PLAVIX SINCE 1999 On home oxygen therapy HS ONLY MARKO (obstructive sleep apnea) Rheumatoid arthritis Sleep apnea CAN'T TOLERATE CPAP -USES OXYGEN 2L/MIN NC Surgical History History of cardiac cath -1 [facility] History of cataract surgery R/L History of open reduction and internal fixation (ORIF) procedure LEFT ANKLE History of total knee replacement RIGHT Family History Other No significant family history Social History Smoking Status: Never smoker Second Hand Exposure: No; Do You Dip or Chew Tobacco: No; Tobacco Cessation Education Requested by Patient: No Hx Alcohol Use: No Hx Substance Use: No Preferred Language: Chadian Communication Ability: Effective Margin Trimmer Required: No Beliefs That Will Affect Care: None Current Living Situation: Spouse Other Information That Helps Us Care for You: No Feels Safe at Home: Yes Safety Concerns: Feels Safe At This Time Allergies Allergies Allergy/AdvReac Type Severity Reaction Status Date / Time Iodinated Contrast Media Allergy Intermediate HIVES Verified 01/03/20 15:02 shellfish derived Allergy Intermediate hives Verified 01/03/20 15:02 meperidine AdvReac Mild Nausea Verified 01/03/20 15:02 methotrexate AdvReac Mild Nausea Verified 01/03/20 15:02 oxycodone AdvReac Mild n/v Verified 01/03/20 15:02 Bebmmni-Ial-Aib Reductase AdvReac Mild myalgias Verified 01/03/20 15:02 Inhibitor Home Meds Home Medications Medication Instructions Recorded Confirmed aspirin 81 mg PO QPM 02/28/18 01/03/20 atenolol 25 mg PO BID 02/28/18 01/03/20 clopidogrel [Plavix] 75 mg PO QAM 02/28/18 01/03/20 lisinopril 10 mg PO BID 02/28/18 01/03/20 nitroglycerin [Nitrostat] 0.4 mg SUBLINGUAL UD PRN 02/28/18 01/03/20 Enbrel 0 ml SUBCUT WK 04/14/18 01/03/20 metformin 500 mg PO PM 04/14/18 01/03/20 amlodipine [Norvasc] 5 mg PO DAILY 01/03/20 01/03/20 prednisone 5 mg PO .TAPER UD 01/03/20 01/03/20 sildenafil (pulm.hypertension) 20 mg PO UD 01/03/20 01/03/20 [Revatio] Previous Rx's Medication Instructions Recorded sennosides-docusate sodium 1 tab PO DAILY PRN #10 tab 03/03/18 [Senokot-S] Results & Data (ED) Vital Signs Vital Signs - 24 hr 01/03/20 13:50 01/03/20 13:58 01/03/20 14:02 Temperature 36.8 C Temperature Source Oral Pulse Rate 63 61 Pulse Rate [Apical] Pulse Rate from SpO2 Sensor 61 Respiratory Rate 18 18 Blood Pressure 189/90 H Blood Pressure [Left Arm] Blood Pressure Mean 123 Blood Pressure Mean [Left Arm] Pulse Oximetry 96 95 100 Oxygen Delivery Method Room Air Nasal Cannula Nasal Cannula Oxygen Flow Rate 2 2 Sepsis Recent Fever Within 48 Hours No Sepsis New/Unexplained Change in Mental Status No Sepsis Action Taken by Nursing No Action Required 01/03/20 14:09 01/03/20 14:10 01/03/20 14:14 Temperature Temperature Source Pulse Rate 58 L 59 L Pulse Rate [Apical] 67 Pulse Rate from SpO2 Sensor 59 L 59 L Respiratory Rate 17 19 18 Blood Pressure 168/113 H Blood Pressure [Left Arm] 168/113 H Blood Pressure Mean 151 Blood Pressure Mean [Left Arm] 131 Pulse Oximetry 97 98 96 Oxygen Delivery Method Nasal Cannula Nasal Cannula Nasal Cannula Oxygen Flow Rate 2 2 2 Sepsis Recent Fever Within 48 Hours Sepsis New/Unexplained Change in Mental Status Sepsis Action Taken by Nursing 01/03/20 14:16 01/03/20 14:20 01/03/20 14:25 Temperature Temperature Source Pulse Rate 64 59 L Pulse Rate [Apical] Pulse Rate from SpO2 Sensor 64 60 Respiratory Rate 20 19 Blood Pressure 143/78 H Blood Pressure [Left Arm] Blood Pressure Mean 105 Blood Pressure Mean [Left Arm] Pulse Oximetry 96 96 96 Oxygen Delivery Method Nasal Cannula Nasal Cannula Oxygen Flow Rate 2 2 2 Sepsis Recent Fever Within 48 Hours Sepsis New/Unexplained Change in Mental Status Sepsis Action Taken by Nursing 01/03/20 14:30 01/03/20 14:45 01/03/20 15:00 Temperature Temperature Source Pulse Rate 56 L 59 L 57 L Pulse Rate [Apical] Pulse Rate from SpO2 Sensor 56 L 59 L 57 L Respiratory Rate 18 21 20 Blood Pressure 144/74 H 138/75 139/79 Blood Pressure [Left Arm] Blood Pressure Mean 93 102 91 Blood Pressure Mean [Left Arm] Pulse Oximetry 99 96 97 Oxygen Delivery Method Oxygen Flow Rate Sepsis Recent Fever Within 48 Hours Sepsis New/Unexplained Change in Mental Status Sepsis Action Taken by Nursing 01/03/20 15:15 Temperature Temperature Source Pulse Rate 58 L Pulse Rate [Apical] Pulse Rate from SpO2 Sensor 59 L Respiratory Rate 26 H Blood Pressure 149/78 H Blood Pressure [Left Arm] Blood Pressure Mean 101 Blood Pressure Mean [Left Arm] Pulse Oximetry 96 Oxygen Delivery Method Oxygen Flow Rate Sepsis Recent Fever Within 48 Hours Sepsis New/Unexplained Change in Mental Status Sepsis Action Taken by Nursing Laboratory Data Result diagrams: 01/03/20 14:00 01/03/20 14:00 Lab Results 01/03/20 01/03/20 01/03/20 Range/Units 14:00 14:00 14:00 WBC 10.25 (4.8-10.8) K/uL RBC 5.10 (4.7-6.1) M/uL Hgb 15.8 (14.0-18.0) g/dL Hct 46.4 (42-52) % MCV 91.0 (80-100) fL MCH 31.0 (25-34) pg MCHC 34.1 (32-36) g/dL RDW Std Deviation 43.8 (36.4-46.3) fL RDW Coeff of Jay Jay 13.3 (11.5-14.5) % Plt Count 275 (130-400) K/uL MPV 9.8 (7.4-10.4) fL Immature Gran % (Auto) 0.3 % Neut % (Auto) 57.1 % Lymph % (Auto) 31.8 % Bertie % (Auto) 7.8 % Eos % (Auto) 2.6 % Baso % (Auto) 0.4 % Neut # (Auto) 5.85 (1.4-6.5) K/uL Lymph # (Auto) 3.26 (1.2-3.4) K/uL Bertie # (Auto) 0.80 H (0.11-0.59) K/uL Eos # (Auto) 0.27 (0-0.5) K/uL Baso # (Auto) 0.04 (0-0.2) K/uL Immature Gran # (Auto) 0.03 H (0.00-0.02) K/uL PT 11.0 (9.0-12.0) Seconds INR 1.0 (0.9-1.1) APTT 25.1 (21.0-31.0) Seconds PTT Ratio 0.9 Activ Coag Time Kaolin (94-140) SECONDS Sodium 135 L (136-145) mmol/L Potassium 4.0 (3.5-5.1) mmol/L Chloride 99 (98-107) mmol/L Carbon Dioxide 30 (21-32) mmol/L Anion Gap 6.0 (3-11) BUN 19 H (7-18) mg/dl Creatinine 1.15 (0.6-1.4) mg/dl Est Cr Clr Drug Dosing 78.2 ml/min Est GFR ( Amer) 73.3 Est GFR (Non-Af Amer) 63.2 BUN/Creatinine Ratio 16.1 (10-20) Glucose 199 H (70-99) mg/dl Calcium 9.4 (8.5-10.1) mg/dl Total Bilirubin 0.7 (0.2-1) mg/dl AST 18 (15-37) U/L ALT 36 (12-78) U/L Alkaline Phosphatase 103 (45-117) U/L Troponin I 0.023 (0-0.045) ng/ml Total Protein 8.5 H (6.4-8.2) gm/dl Albumin 3.5 (3.4-5.0) gm/dl Globulin 4.9 H (2.5-4.0) gm/dl Albumin/Globulin Ratio 0.7 L (0.9-2) Lipase 158 (73-393) U/L 01/03/20 01/03/20 Range/Units 16:28 17:00 WBC (4.8-10.8) K/uL RBC (4.7-6.1) M/uL Hgb (14.0-18.0) g/dL Hct (42-52) % MCV (80-100) fL MCH (25-34) pg MCHC (32-36) g/dL RDW Std Deviation (36.4-46.3) fL RDW Coeff of Jay Jay (11.5-14.5) % Plt Count (130-400) K/uL MPV (7.4-10.4) fL Immature Gran % (Auto) % Neut % (Auto) % Lymph % (Auto) % Bertie % (Auto) % Eos % (Auto) % Baso % (Auto) % Neut # (Auto) (1.4-6.5) K/uL Lymph # (Auto) (1.2-3.4) K/uL Bertie # (Auto) (0.11-0.59) K/uL Eos # (Auto) (0-0.5) K/uL Baso # (Auto) (0-0.2) K/uL Immature Gran # (Auto) (0.00-0.02) K/uL PT (9.0-12.0) Seconds INR (0.9-1.1) APTT (21.0-31.0) Seconds PTT Ratio Activ Coag Time Kaolin 136 230 H (94-140) SECONDS Sodium (136-145) mmol/L Potassium (3.5-5.1) mmol/L Chloride (98-107) mmol/L Carbon Dioxide (21-32) mmol/L Anion Gap (3-11) BUN (7-18) mg/dl Creatinine (0.6-1.4) mg/dl Est Cr Clr Drug Dosing ml/min Est GFR ( Amer) Est GFR (Non-Af Amer) BUN/Creatinine Ratio (10-20) Glucose (70-99) mg/dl Calcium (8.5-10.1) mg/dl Total Bilirubin (0.2-1) mg/dl AST (15-37) U/L ALT (12-78) U/L Alkaline Phosphatase (45-117) U/L Troponin I (0-0.045) ng/ml Total Protein (6.4-8.2) gm/dl Albumin (3.4-5.0) gm/dl Globulin (2.5-4.0) gm/dl Albumin/Globulin Ratio (0.9-2) Lipase (73-393) U/L Administered Medications Discontinued Medications Aspirin (Aspirin Chew 324 Mg) 324 mg PO NOW STA Stop: 01/03/20 13:59 Last Admin: 01/03/20 14:05 Dose: 324 mg Documented by: [id number] Aspirin (Aspirin Chew 324 Mg) 324 mg PO NOW STA Stop: 01/03/20 14:08 Last Admin: 01/03/20 14:23 Dose: Not Given Documented by: [id number] Clopidogrel Bisulfate (Clopidogrel Bisulfate 300 Mg Tab) Confirm Administered Dose 300 mg .ROUTE .STK-MED ONE Stop: 01/03/20 16:56 Last Admin: 01/03/20 17:28 Dose: 300 mg Documented by: [id number] Diphenhydramine HCl (Diphenhydramine Hcl 50 Mg/Ml Vial) Confirm Administered Dose 50 mg .ROUTE .STK-MED ONE Stop: 01/03/20 15:31 Last Admin: 01/03/20 16:11 Dose: 50 mg Documented by: [id number] Fentanyl Citrate (Fentanyl Citrate 100 Mcg/2 Ml Vial) Confirm Administered Dose 100 mcg .ROUTE .STK-MED ONE Stop: 01/03/20 15:25 Last Increment: 01/03/20 16:53 Dose: 62.5 mcg Documented by: [id number] Heparin Sodium (Porcine) (Heparin Sod (Porcine) 1000 Unit/Ml 10 Ml Vial) Confirm Administered Dose 10,000 units .ROUTE .STK-MED ONE Stop: 01/03/20 15:03 Last Admin: 01/03/20 15:04 Dose: 4,000 units Documented by: [id number] Cosigned by: [id number] Heparin Sodium (Porcine) (Heparin (Porcine) 1000 Unit/Ml 10 Ml ([facility] Use Only)) Confirm Administered Dose 10,000 units .ROUTE .STK-MED ONE Stop: 01/03/20 15:25 Last Admin: 01/03/20 16:54 Dose: 8,000 units Documented by: [id number] Heparin Sodium (Porcine) (Heparin (Porcine) 1000 Unit/Ml 10 Ml ([facility] Use Only)) Confirm Administered Dose 10,000 units .ROUTE .STK-MED ONE Stop: 01/03/20 17:05 Last Admin: 01/03/20 17:29 Dose: 3,000 units Documented by: [id number] Heparin Sodium/Dextrose (Heparin Iv Low Dose With Bolus) 1 ea N/A NOW STA; Protocol Stop: 01/03/20 14:56 Last Admin: 01/03/20 15:08 Dose: Not Given Documented by: [id number] Heparin Sodium/Sodium Chloride (Heparin In Nss Infusion 1000 Unit/500 Ml (2 U/Ml) Bag) Confirm Administered Dose 3,000 units IV .STK-MED ONE Stop: 01/03/20 15:26 Last Admin: 01/03/20 16:10 Dose: 3,000 units Documented by: [id number] Hydrocortisone Sodium Succinate (Hydrocortisone Sod Succinate 100 Mg/2 Ml Vial) 100 mg IV NOW STA Stop: 01/03/20 16:05 Last Admin: 01/03/20 16:11 Dose: Not Given Documented by: [id number] Sodium Chloride (Nss) 500 mls @ 999 mls/hr IV .Q31M JACE Stop: 01/03/20 14:30 Last Infusion: 01/03/20 14:38 Dose: 0 mls/hr Documented by: [id number] Admin: 01/03/20 14:07 Dose: 999 mls/hr Documented by: [id number] Heparin Sodium/Dextrose (Heparin Sodium/Dextrose) 25,000 units in 500 mls @ 20 mls/hr IV .Q24H JACE; Protocol Stop: 02/02/20 14:59 Last Titration: 01/03/20 18:44 Dose: 0 units/hr, 0 mls/hr Documented by: [id number] Cosigned by: [id number] Admin: 01/03/20 15:04 Dose: 1,000 units/hr, 20 mls/hr Documented by: [id number] Cosigned by: [id number] Methylprednisolone (Methylprednisolone 125 Mg/2 Ml Vial) Confirm Administered Dose 125 mg .ROUTE .STK-MED ONE Stop: 01/03/20 15:31 Last Admin: 01/03/20 16:11 Dose: 125 mg Documented by: [id number] Midazolam HCl (Midazolam Hcl 1 Mg/Ml 2ml Vial) Confirm Administered Dose 2 mg .ROUTE .STK-MED ONE Stop: 01/03/20 15:26 Last Admin: 01/03/20 16:54 Dose: 2 mg Documented by: [id number] Midazolam HCl (Midazolam Hcl 1 Mg/Ml 2ml Vial) Confirm Administered Dose 2 mg .ROUTE .STK-MED ONE Stop: 01/03/20 17:11 Last Increment: 01/03/20 17:29 Dose: 1 mg Documented by: [id number] Nicardipine HCl (Nicardipine Hcl Inj 2.5 Mg/Ml 10 Ml Amp) Confirm Administered Dose 25 mg .ROUTE .STK-MED ONE Stop: 01/03/20 15:25 Last Admin: 01/03/20 16:08 Dose: 25 mg Documented by: [id number] Nitroglycerin (Nitroglycerin Sl 0.4 Mg/Tab Tab) 0.4 mg SL PRN PRN PRN Reason: Allergic Reaction Stop: 02/02/20 14:06 Last Admin: 01/03/20 14:38 Dose: 0.4 mg Documented by: [id number] Admin: 01/03/20 14:10 Dose: 0.4 mg Documented by: [id number] Nitroglycerin/Dextrose (Nitroglycerin/D5w 100mcg/Ml 20ml Syr) Confirm Administered Dose 2,000 mcg .ROUTE .STK-MED ONE Stop: 01/03/20 16:27 Last Admin: 01/03/20 16:54 Dose: 2,000 mcg Documented by: [id number] Discharge Plan Visit Data Chief Complaint: Chest Pain Stated Complaint: HEART ATTACK ED Provider: Neftaly Durham Discharge Problem: Non-ST elevation ME (NSTEMI), Chest pain, Elevated troponin, Unstable angina pectoris Discharge Instructions Interventions: ED Discharge Assessment Last Done: 01/03/20 15:27 Discharge Problem: Chest pain Qualifiers: Chest pain type: unspecified Qualified Code(s): R07.9 - Chest pain, unspecified
[2020-01-03 14:14] LABS: Basophils # (auto) 0.04 K/uL (0-0.2); Basophils % (auto) 0.4 %; Eosinophils # (auto) 0.27 K/uL (0-0.5); Eosinophils % (auto) 2.6 %; Hematocrit (blood only) 46.4 % (42-52); Hemoglobin 15.8 g/dL (14.0-18.0); Immature Granulocytes # (auto) 0.03 K/uL (0.00-0.02); Immature Granulocytes % (auto) 0.3 %; Lymphocytes # (auto) 3.26 K/uL (1.2-3.4); Lymphocytes % (auto) 31.8 %; Mean Corpuscular Hgb Conc 34.1 g/dL (32-36); Mean Platelet Volume 9.8 fL (7.4-10.4); Monocytes % (auto) 7.8 %; Neutrophils # (auto) 5.85 K/uL (1.4-6.5); Neutrophils % (auto) 57.1 %; Platelet Count 275 K/uL (130-400); RDW Coefficient of Variation 13.3 % (11.5-14.5); RDW Standard Deviation 43.8 fL (36.4-46.3); White Blood Count 10.25 K/uL (4.8-10.8)
[2020-01-03 14:27] LABS: Partial Thromboplastin Ratio 0.9; Partial Thromboplastin Time 25.1 Seconds (21.0-31.0)
[2020-01-03 14:33] LABS: Albumin Level 3.5 gm/dl (3.4-5.0); BUN Creatinine Ratio 16.1 (10-20); Calcium 9.4 mg/dl (8.5-10.1); Creatinine Clr Calc Pharmacy 78.2 ml/min; Est GFR (African American) 73.3; Est GFR (Non-African American) 63.2
[2020-01-03 14:38] LABS: Albumin Globulin Ratio 0.7 (0.9-2); Bilirubin,Total 0.7 mg/dl (0.2-1); Globulin 4.9 gm/dl (2.5-4.0); Total Protein 8.5 gm/dl (6.4-8.2); Troponin I 0.023 ng/ml (0-0.045)
[2020-01-03] MEDS ORDERED: Heparin IV Low Dose WITH Bolus STA (14:55)
[2020-01-03] MEDS ORDERED: HEPARIN SODIUM/DEXTROSE 25,000 UNITS/500 ML BAG IV SCH (15:00)
[2020-01-03] MEDS ORDERED: HEPARIN SOD (PORCINE) 1000 UNIT/ML 10 ML VIAL ONE (15:02)
[2020-01-03] MEDS ORDERED: NiCARDipine HCL INJ 2.5 MG/ML 10 ML AMP ONE (15:24)
[2020-01-03] MEDS ORDERED: fentaNYL citrate 100 MCG/2 ML VIAL ONE (15:24)
[2020-01-03] MEDS ORDERED: HEPARIN (PORCINE) 1000 UNIT/ML 10 ML (CATH LAB USE ONLY) ONE ×2 (15:24→17:04)
[2020-01-03] MEDS ORDERED: MIDAZOLAM HCL 1 MG/ML 2ML VIAL ONE ×2 (15:25→17:10)
[2020-01-03] MEDS ORDERED: DiphenhydrAMINE HCL 50 MG/ML VIAL ONE (15:30)
[2020-01-03] MEDS ORDERED: methylPREDNISolone 125 MG/2 ML VIAL ONE (15:30)
--- NOTE | 2020-01-03 15:38 | Cardiology Consultation ---
Date of Consultation January 03, 2020 Assessment & Plan (1) Precordial chest pain: Patient is a 74-year-old male with known coronary disease with prior coronary inventions left anterior descending in 1999 and 2013 with residual left circumflex disease. Patient presents today with acute onset substernal pain radiating to left shoulder waxing and waning in severity with relief with nitroglycerin sublingual. EKGs demonstrate subtle changes in lead II only initial troponin not elevated but detected. Findings may be exacerbation of chronic gastroesophageal reflux secondary to recent addition of prednisone versus acute myocardial ischemia patient difficult imaging candidate by echo and nuclear testing. Given ongoing symptoms, we will proceed with diagnostic cardiac catheterization urgently. Contrast allergy noted with patient received Solu-Cortef preoperatively. Procedure and risks explained in detail with the patient and . Further recommendations pending History of Present Illness Reason for Consultation: Acute chest pain Requesting Physician: Dr. Taylor Durham Attending Physician: Jose Francisco Cespedes MD History of Present Illness Patient is a 74-year-old male with known coronary disease and past medical history 1. Atherosclerotic coronary disease, status post prior PTCA and stenting of the proximal LAD January 2000. 2. Repeat coronary intervention in the setting of acute ST elevation myocardial infarctionApr2013, receiving drug-eluting stent to the proximal LAD with [id number]% stenosis of the circumflex. 3. 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 4. Longstanding and labile hypertension. 5. Obstructive sleep apnea on O2 supplementation nocturnally. 6. Hyperlipidemia, statin intolerant on ezetimibe 7. Rheumatoid arthritis on Enbrel therapy Patient presents today noting having felt poorly for approximately a 1 to 2 days notes recent flare of arthritic issues and begun on oral prednisone with some easing of complaints. Today however he developed substernal pressure pain radiating to his throat and shoulder notes of prior myocardial ischemia events. Patient presented emergency room for evaluation symptoms have been waxing and waning and became severe once again while in the emergency room. Sublingual nitroglycerin were helpful at home and on ER presentation. He is received IV heparin. EKGs have demonstrated subtle ST elevation in lead II only initial troponin detectable but not elevated. No recent fevers chills or cough. Diffuse arthralgias present. No tachypalpitations syncope or near syncope. Blood pressures have been generally controlled. No bleeding issues melena medication dysuria hematuria. No neurologic complaints. No anticipated or recent surgeries. Allergies Allergy/AdvReac Type Severity Reaction Status Date / Time Iodinated Contrast Media Allergy Intermediate HIVES Verified 01/03/20 15:02 shellfish derived Allergy Intermediate hives Verified 01/03/20 15:02 meperidine AdvReac Mild Nausea Verified 01/03/20 15:02 methotrexate AdvReac Mild Nausea Verified 01/03/20 15:02 oxycodone AdvReac Mild n/v Verified 01/03/20 15:02 Haxgrzr-Ixk-Aya Reductase AdvReac Mild myalgias Verified 01/03/20 15:02 Inhibitor Home Medications Home Medications Medication Instructions Recorded Confirmed Type aspirin 81 mg PO QPM 02/28/18 01/03/20 History atenolol 25 mg PO BID 02/28/18 01/03/20 History clopidogrel [Plavix] 75 mg PO QAM 02/28/18 01/03/20 History lisinopril 10 mg PO BID 02/28/18 01/03/20 History nitroglycerin [Nitrostat] 0.4 mg SUBLINGUAL UD PRN 02/28/18 01/03/20 History sennosides-docusate sodium 1 tab PO DAILY PRN #10 tab 03/03/18 01/03/20 Rx [Senokot-S] Enbrel 0 ml SUBCUT WK 04/14/18 01/03/20 History metformin 500 mg PO PM 04/14/18 01/03/20 History amlodipine [Norvasc] 5 mg PO DAILY 01/03/20 01/03/20 History prednisone 5 mg PO .TAPER UD 01/03/20 01/03/20 History sildenafil (pulm.hypertension) 20 mg PO UD 01/03/20 01/03/20 History [Revatio] Patient History Medical History (Updated 01/03/20 @ 16:12 by Cyrus Vazquez MD) Diabetes mellitus, type 2 History of left heart catheterization (LHC) "02/01/00 PTCA and Stent of 90% prox LAD lesion. 50%left circ untreated. 2013 [facility] DESx2 to LAD " Hx of pancreatitis 02/2018 [facility] Myocardial Infarction 2013 OR 2015-NO RECENT CHEST PAIN PER SPOUSE On anticoagulant therapy DAILY PLAVIX SINCE 1999 On home oxygen therapy HS ONLY MARKO (obstructive sleep apnea) Rheumatoid arthritis Sleep apnea CAN'T TOLERATE CPAP -USES OXYGEN 2L/MIN NC Surgical History History of cardiac cath -1 [facility] History of cataract surgery R/L History of open reduction and internal fixation (ORIF) procedure LEFT ANKLE History of total knee replacement RIGHT Family History Other No significant family history Social History Smoking Status: Never smoker Second Hand Exposure: No; Hx Alcohol Use: No (STOPPED 02/2018) Hx Substance Use: No Preferred Language: Maltese Communication Ability: Effective Agricultural Education Instructor Required: No Beliefs That Will Affect Care: None Current Living Situation: Spouse Feels Safe at Home: Yes Review of Systems Review of Systems: All systems reviewed & are unremarkable except as noted in HPI & below Physical Exam Constitutional: WD/WN, vitals as above + acute distress (Patient uncomfortable in mild acute distress) and + obese Eyes: PERRL, conjunctivae normal, anicteric sclerae ENMT: external ear and nose normal, oropharynx normal Neck: trachea midline, no thyromegaly + thick neck Respiratory: normal respiratory effort, lungs clear to auscultation Cardiovascular: Rate/Rhythm: regular rate and regular rhythm Heart Sounds: normal S1 and normal S2; no gallop and no murmur Palpation: normal PMI Vessels: normal carotid upstroke and radial pulses present; no JVD and no carotid bruit Extremities: no edema Gastrointestinal (Abdomen): normal bowel sounds, soft, nontender, no he patosplenomegaly Musculoskeletal: no cyanosis or clubbing, extremities motor strength 5/5 Skin: no rashes, warm and dry Neurologic: PERRL, EOMI, accommodation nl, no face palsy, no dysarthria Psychiatric: A+Ox3, euthymic affect Results & Data ([facility]) Vital Signs (Past 12 Hours) Vital Signs Temp Pulse Pulse Resp BP BP Pulse Ox 01/03/20 15:15 58 L 26 H 149/78 H 96 01/03/20 15:00 57 L 20 139/79 97 01/03/20 14:45 59 L 21 138/75 96 01/03/20 14:30 56 L 18 144/74 H 99 01/03/20 14:25 96 01/03/20 14:20 59 L 19 96 01/03/20 14:16 64 20 143/78 H 96 01/03/20 14:14 67 18 168/113 H 96 01/03/20 14:10 59 L 19 98 01/03/20 14:09 58 L 17 168/113 H 97 01/03/20 14:02 61 18 100 01/03/20 13:58 95 01/03/20 13:50 36.8 C 63 18 189/90 H 96 Laboratory Results Laboratory Results - last 24 hr 01/03/20 01/03/20 01/03/20 14:00 14:00 14:00 WBC 10.25 RBC 5.10 Hgb 15.8 Hct 46.4 MCV 91.0 MCH 31.0 MCHC 34.1 RDW Std Deviation 43.8 RDW Coeff of [place] 13.3 Plt Count 275 MPV 9.8 Immature Gran % (Auto) 0.3 Neut % (Auto) 57.1 Lymph % (Auto) 31.8 [place] % (Auto) 7.8 Eos % (Auto) 2.6 Baso % (Auto) 0.4 Neut # (Auto) 5.85 Lymph # (Auto) 3.26 [place] # (Auto) 0.80 H Eos # (Auto) 0.27 Baso # (Auto) 0.04 Immature Gran # (Auto) 0.03 H PT 11.0 INR 1.0 APTT 25.1 PTT Ratio 0.9 Sodium 135 L Potassium 4.0 Chloride 99 Carbon Dioxide 30 Anion Gap 6.0 BUN 19 H Creatinine 1.15 Est Cr Clr Drug Dosing 78.2 Est GFR ( Amer) 73.3 Est GFR (Non-Af Amer) 63.2 BUN/Creatinine Ratio 16.1 Glucose 199 H Calcium 9.4 Total Bilirubin 0.7 AST 18 ALT 36 Alkaline Phosphatase 103 Troponin I 0.023 Total Protein 8.5 H Albumin 3.5 Globulin 4.9 H Albumin/Globulin Ratio 0.7 L Lipase 158
[2020-01-03] MEDS ORDERED: HYDROCORTISONE SOD 100 MG in SYRINGE 0 ML IV STA (15:41)
--- NOTE | 2020-01-03 15:50 | Pre Anesthesia Assessment ---
Date of Service January 03, 2020 Pre Sedation Assessment Vital Signs Temp Pulse Pulse Resp BP BP Pulse Ox 01/03/20 15:15 58 L 26 H 149/78 H 96 01/03/20 15:00 57 L 20 139/79 97 01/03/20 14:45 59 L 21 138/75 96 01/03/20 14:30 56 L 18 144/74 H 99 01/03/20 14:25 96 01/03/20 14:20 59 L 19 96 01/03/20 14:16 64 20 143/78 H 96 01/03/20 14:14 67 18 168/113 H 96 01/03/20 14:10 59 L 19 98 01/03/20 14:09 58 L 17 168/113 H 97 01/03/20 14:02 61 18 100 01/03/20 13:58 95 01/03/20 13:50 36.8 C 63 18 189/90 H 96 Cardiovascular RRR, no murmur, no edema Respiratory normal respiratory effort, lungs clear to auscultation Pre-Sedation Airway Assessment Smoking Status: Never smoker Mallampati Class: III Procedure Planning Contraindications for Sedation: none Current Medications Reviewed: Yes Notes The planned sedation has been discussed with the patient. Informed Consent was obtained. I have identified the patient, determined the appropriateness of sedation and have assessed the patient immediately prior to the procedure. All medicine(s) and interventions are by my order.
[2020-01-03] MEDS ORDERED: HYDROCORTISONE SOD SUCCINATE 100 MG/2 ML VIAL IV STA (16:04)
--- NOTE | 2020-01-03 16:08 | History & Physical Report ---
Date of Service January 03, 2020 Assessment & Plan (1) Precordial chest pain: Presented with severe precordial chest pain with radiation to neck and left upper extremity Has history of prior cardiac cath with stent placement and also history of NM Remains symptomatic even with sublingual nitro EKG showed subtle changes involving inferior leads suspicious for ACS Appreciate cardiology input and the patient was taken to the cardiac Sweatband Maker emergently He was started with intravenous heparin (2) History of left heart catheterization (LHC): With prior LAD stent, most recent in 2013 (3) GERD (gastroesophageal reflux disease): Has GERD Symptoms may have increased with recent use of steroid on top of aspirin and Plavix We will continue with PPI (4) Rheumatoid arthritis: History not arthritis on Enbrel Recent flareup treated with tapering dose of steroid starting 50 mg a day and tapering every 3 days As of today he has been taking 15 We will hold off any steroid for now (5) Diabetes mellitus, type 2: We will hold metformin Blood sugar is expected to be high SSI (6) MARKO (obstructive sleep apnea): Has been on home oxygen No acute symptoms His other medical conditions of hypertension, hyperlipidemia remain stable We will continue with his usual medications as an outpatient History of Present Illness Chief Complaint: Chest pain on and off since this morning Primary Care Provider: Zev Lemus MD He is a 74-year-old obese male with significant past medical history of atherosclerotic CAD, status post angioplasty with stent placement to LAD past, type 2 diabetes, rheumatoid arthritis, sleep apnea, hyperlipidemia and GERD apparently has been complaining of precordial chest pain on and off since this morning. He has been complaining of arthritis pain likely secondary to flareup of rheumatoid arthritis and has been getting a tapering dose of prednisone for the last few days. After coming out from shower this morning he started to have precordial chest pain, like an elephant sitting on the chest with radiation of the pain to the neck and left upper extremity. He complained to have some shortness of breath and felt nauseous without any vomiting and without any sweating. The pain lasted for about 15 minutes and relieved to some extent with sublingual nitro. Was in pain in the emergency room and relevant test including EKG was noted to be abnormal but the chest pain continued and which was very suspicious for imminent ACS. He was evaluated by fuel conversion technician in the emergency room and was rushed to the cardiac Sweatband Maker for further evaluation of chest pain. He denies any recent fever and/or chills, recent cough was increasing shortness of breath, denies any abdominal pain or distention, denies any recent weight gain or increasing edema. No change of his medications except he has been on a tapering dose of prednisone which he has been taking 15 mg a day as of today. Allergies Allergy/AdvReac Type Severity Reaction Status Date / Time Iodinated Contrast Media Allergy Intermediate HIVES Verified 01/03/20 15:02 shellfish derived Allergy Intermediate hives Verified 01/03/20 15:02 meperidine AdvReac Mild Nausea Verified 01/03/20 15:02 methotrexate AdvReac Mild Nausea Verified 01/03/20 15:02 oxycodone AdvReac Mild n/v Verified 01/03/20 15:02 Ouhmksp-Jpu-Ogw Reductase AdvReac Mild myalgias Verified 01/03/20 15:02 Inhibitor Home Medications Home Medications Medication Instructions Recorded Confirmed Type aspirin 81 mg PO QPM 02/28/18 01/03/20 History atenolol 25 mg PO BID 02/28/18 01/03/20 History clopidogrel [Plavix] 75 mg PO QAM 02/28/18 01/03/20 History lisinopril 10 mg PO BID 02/28/18 01/03/20 History nitroglycerin [Nitrostat] 0.4 mg SUBLINGUAL UD PRN 02/28/18 01/03/20 History sennosides-docusate sodium 1 tab PO DAILY PRN #10 tab 03/03/18 01/03/20 Rx [Senokot-S] Enbrel 0 ml SUBCUT WK 04/14/18 01/03/20 History metformin 500 mg PO PM 04/14/18 01/03/20 History amlodipine [Norvasc] 5 mg PO DAILY 01/03/20 01/03/20 History prednisone 5 mg PO .TAPER UD 01/03/20 01/03/20 History sildenafil (pulm.hypertension) 20 mg PO UD 01/03/20 01/03/20 History [Revatio] Past Med/Surg History Medical History (Updated 01/03/20 @ 19:50 by Neftaly Durham DO) Diabetes mellitus, type 2 History of left heart catheterization (LHC) "02/01/00 PTCA and Stent of 90% prox LAD lesion. 50%left circ untreated. 2013 [facility] DESx2 to LAD " Hx of pancreatitis 02/2018 [facility] Myocardial Infarction 2013 OR 2014-NO RECENT CHEST PAIN PER SPOUSE On anticoagulant therapy DAILY PLAVIX SINCE 1999 On home oxygen therapy HS ONLY MARKO (obstructive sleep apnea) Rheumatoid arthritis Sleep apnea CAN'T TOLERATE CPAP -USES OXYGEN 2L/MIN NC Surgical History (Updated 01/04/20 @ 11:43 by Jose Francisco Cespedes MD) History of cardiac cath -1 [facility] History of cataract surgery R/L History of open reduction and internal fixation (ORIF) procedure LEFT ANKLE History of total knee replacement RIGHT Family History Other No significant family history Social History Smoking Status: Never smoker Second Hand Exposure: No; Do You Dip or Chew Tobacco: No; Tobacco Cessation Education Requested by Patient: No Hx Alcohol Use: No Hx Substance Use: No Preferred Language: Telugu Communication Ability: Effective Advertising Copy Writer Required: No Beliefs That Will Affect Care: None Current Living Situation: Spouse Other Information That Helps Us Care for You: No Feels Safe at Home: Yes Safety Concerns: Feels Safe At This Time Review of Systems Review of Systems: All systems reviewed & are unremarkable except as noted in HPI & below Cardiovascular: + chest pain, + chest pain at rest, + chest pain with activity and + radiating jaw, neck or arm pain; no dyspnea at rest Physical Exam Physical Exam: Lying in bed with some discomfort secondary to chest pain Constitutional: well developed, well nourished, + acute distress, + ill appearing and + obese Eyes: PERRL, conjunctivae normal, anicteric sclerae ENMT: external ear and nose normal, oropharynx normal Neck: trachea midline, no thyromegaly Respiratory: normal respiratory effort; no respiratory distress Auscultation: lungs clear to auscultation bilaterally Cardiovascular: Rate/Rhythm: regular rate and regular rhythm Heart Sounds: no murmur Gastrointestinal (Abdomen): Inspection/Auscultation: abdomen normal to inspection and normal bowel sounds Percussion/Palpation: abdomen soft; abdomen nontender Musculoskeletal: No acute arthritis involving any joints Neurologic: moves all extremities; no focal motor deficits Lymphatic: no cervical or axillary lymphadenopathy Results & Data Results & Data ([facility]) Vital Signs (Past 12 Hours) Vital Signs Temp Pulse Pulse Resp BP BP Pulse Ox 01/03/20 15:15 58 L 26 H 149/78 H 96 01/03/20 15:00 57 L 20 139/79 97 01/03/20 14:45 59 L 21 138/75 96 01/03/20 14:30 56 L 18 144/74 H 99 01/03/20 14:25 96 01/03/20 14:20 59 L 19 96 01/03/20 14:16 64 20 143/78 H 96 01/03/20 14:14 67 18 168/113 H 96 01/03/20 14:10 59 L 19 98 01/03/20 14:09 58 L 17 168/113 H 97 01/03/20 14:02 61 18 100 01/03/20 13:58 95 01/03/20 13:50 36.8 C 63 18 189/90 H 96 Laboratory Results Short CBC 01/03/20 Range/Units 14:00 WBC 10.25 (4.8-10.8) K/uL Hgb 15.8 (14.0-18.0) g/dL Hct 46.4 (42-52) % Plt Count 275 (130-400) K/uL BMP 01/03/20 14:00 Sodium 135 L Potassium 4.0 Chloride 99 Carbon Dioxide 30 BUN 19 H Creatinine 1.15 Glucose 199 H Calcium 9.4 Cardiac Enzymes 01/03/20 Range/Units 14:00 Troponin I 0.023 (0-0.045) ng/ml Liver Function 01/03/20 Range/Units 14:00 Total Bilirubin 0.7 (0.2-1) mg/dl AST 18 (15-37) U/L ALT 36 (12-78) U/L Alkaline Phosphatase 103 (45-117) U/L Albumin 3.5 (3.4-5.0) gm/dl Medications Administered Current Inpatient Medications Heparin Sodium/Dextrose (Heparin Sodium/Dextrose) 25,000 units in 500 mls @ 20 mls/hr IV .Q24H [facility]; Protocol Stop: 02/02/20 14:59 Last Admin: 01/03/20 15:04 Dose: 1,000 units/hr, 20 mls/hr Documented by: Hydrocortisone Sodium (Succinate 100 mg/ Syringe) 2 mls @ 4 mls/min IV NOW STA Stop: 01/03/20 15:42 Nitroglycerin (Nitroglycerin Sl 0.4 Mg/Tab Tab) 0.4 mg SL PRN PRN PRN Reason: Allergic Reaction Stop: 02/02/20 14:06 Last Admin: 01/03/20 14:38 Dose: 0.4 mg Documented by:
--- NOTE | 2020-01-03 16:24 | Cardiac Catheterization ---
Cardiac Cath Procedure Brief Procedure Date January 03, 2020 Pre-Procedure Diagnosis Pre-Procedure Diagnosis: Acute Coronary Syndrome AUC Score AUC Score: 9 Post-Procedure Diagnosis Post-Procedure Diagnosis: Severe CAD Procedure(s) Performed Procedure(s) Performed: Coronary Angiography Sales Expert Home Theater Jose Francisco Cespedes MD Geospatial Engineer(s) Darinel Nicholson Estimated Blood Loss Estimated Blood Loss: None Medication(s) Medication(s): Fentanyl (12.5 mcg IV), Heparin (5000 units IV), Lidocaine 1% (Local infiltration access site), Nicardipine (250 mcg intra-arterial after arterial sheath insertion) and Versed (1 mg IV) Medication(s): Solumedrol 125 mg IV, Benedryl 25 mg IV Preliminary Findings Severe coronary disease with culprit lesion greater than 90% right coronary artery proximal to the posterior descending artery Right dominant coronary anatomy Diffuse coronary atherosclerosis Left main Short with mild calcification 20% distal taper Left anterior descending: Type III in distribution giving rise to a large diagonal in its proximal third a moderate-sized diagonal in its midportion and coursing beyond the apex. There are patent stents in the very proximal and in the midportion. There is a 50% narrowing between the 2 areas of stents within the zuni vessel. The distal LAD has moderate irregularities Left circumflex: Moderately large consisting of a a small first marginal and a large bifurcating obtuse marginal. The origin of the left circumflex has an eccentric 5060 % stenosis Right coronary: Large dominant vessel giving rise to a sinoatrial and conus branch at its origin, a large right ventricular branch at the end of its prox imal third, an early takeoff PDA and 2 large posterior ventricular branches. Within the right coronary artery there is moderate ectatic disease with a discrete greater than 90% stenosis proximal to the posterior descending artery/AV groove portion Recommendations Recommendations: PCI without planned CABG Specimens Specimens: None Fluids (cc crystalloids) Fluids (cc crystalloids): 60 Anesthesia Start time: 1553, Stop time 1617 Procedural Complication(s) None Disposition Start
[2020-01-03] MEDS ORDERED: NITROGLYCERIN/D5W 100MCG/ML 20ML SYR ONE (16:26)
--- NOTE | 2020-01-03 16:53 | Cardiac Catheterization ---
Cardiac Cath Procedure Full Procedure Date January 03, 2020 Pre-Procedure Diagnosis Pre-Procedure Diagnosis: Acute Coronary Syndrome AUC Score AUC Score: 9 Post-Procedure Diagnosis Post-Procedure Diagnosis: Severe CAD Procedure(s) Performed Procedure(s) Performed: Coronary Angiography Wastewater Treatment Plant Instructor Jose Francisco Cespedes MD Single End Sewer(s) Darinel Nicholson Estimated Blood Loss Estimated Blood Loss: None Medication(s) Medication(s): Fentanyl (12.5 mcg IV), Heparin (5000 units IV), Lidocaine 1% (Local infiltration access site), Nicardipine (250 mcg intra-arterial after arterial sheath insertion) and Versed (1 mg IV) Summary of Findings Severe coronary disease with culprit lesion greater than 90% right coronary artery proximal to the posterior descending artery Right dominant coronary anatomy Diffuse coronary atherosclerosis Left main Short with mild calcification 20% distal taper Left anterior descending: Type III in distribution giving rise to a large diagonal in its proximal third a moderate-sized diagonal in its midportion and coursing beyond the apex. There are patent stents in the very proximal and in the midportion. There is a 50% narrowing between the 2 areas of stents within the [place] vessel. The distal LAD has moderate irregularities Left circumflex: Moderately large consisting of a a small first marginal and a large bifurcating obtuse marginal. The origin of the left circumflex has an eccentric 5060 % stenosis Right coronary: Large dominant vessel giving rise to a sinoatrial and conus branch at its origin, a large right ventricular branch at the end of its proximal third, an early takeoff PDA and 2 large posterior ventricular branches. Within the right coronary artery there is moderate ectatic disease with a discrete greater than 90% stenosis proximal to the posterior descending artery/AV groove portion Hemodynamics Rest Ao:: 162/82/114 Final Ao: 134/75/100 LV: Not applicable Recommendations Recommendations: PCI without planned CABG Specimens Specimens: None Radiation Exposure (mGy) 1861 Contrast (mls) 70 Fluids (cc crystalloids) Fluids (cc crystalloids): 60 Anesthesia Start time: 1553, Stop time 1617 Procedural Complication(s) None Disposition Start I attest to the content of the Intraoperative Record and any orders documented therein. Any exceptions are noted below. ACC Data: Mechanical Engineering Intern Cardiac Status Clinical evaluation leading to the procedure 74-year-old male with known coronary disease with prior LAD stents most recently 2013 presented with signs and symptoms of acute coronary syndrome with int ermittent stuttering pain reminiscent of prior myocardial ischemia, 5 hours in duration CAD Presenation: Unstable angina Anginal Classification: CCS IV Heart Failure: No Cardiogenic Shock within 24 Hours: No Cardiac Arrest within 24 Hours: No Imaging Studies Past 6 Months: No Stress Studies Past 6 Months: No Standard Exercise Test: No Stress Echocardiogram: No Stress Testing w/SPECT MPI: No Cardiac CTA: No STEMI OR Non-STEMI Symptom Onset Date: 01/03/20 Symptom Onset Time: 10:28 Thrombolytics: No Coronary Anatomy Dominant: Right Left Main (% Stenosis): Distal (20) LAD (% Stenosis): Proximal (Patent stent) and Mid (50% lesion proximal to additional patent stent) D1 (% Stenosis): Normal D2 (% Stenosis): Normal Circumflex (% Stenosis): Ostial (5060) and Proximal (50) OM1 (% Stenosis): Normal OM2 (% Stenosis): Normal RCA (% Stenosis): Mid (Moderate ectasia) and Distal (Greater than 90%) R PDA (% Stenosis): Ostial (80) Left Ventricular Angiography EF (%): N/A Diagnostic Physicians Name: Jose Francisco Cespedes MD Status: Emergency Closure Device Percutaneous Entry Location: Radial Recommendations: PCI without planned CABG
[2020-01-03] MEDS ORDERED: CLOPIDOGREL BISULFATE 300 MG TAB ONE (16:55)
--- NOTE | 2020-01-03 18:25 | Post Anesthesia Assessment ---
Date of Service January 03, 2020 Post Sedation Assessment Vital Signs Temp Pulse Pulse Resp BP BP Pulse Ox 01/03/20 15:15 58 L 26 H 149/78 H 96 01/03/20 15:00 57 L 20 139/79 97 01/03/20 14:45 59 L 21 138/75 96 01/03/20 14:30 56 L 18 144/74 H 99 01/03/20 14:25 96 01/03/20 14:20 59 L 19 96 01/03/20 14:16 64 20 143/78 H 96 01/03/20 14:14 67 18 168/113 H 96 01/03/20 14:10 59 L 19 98 01/03/20 14:09 58 L 17 168/113 H 97 01/03/20 14:02 61 18 100 01/03/20 13:58 95 01/03/20 13:50 98.2 F 63 18 189/90 H 96 Recovery Score Activity: Moves 4 extremities Respiration: Deep Breath/Cough Circulation: +/-20% PreAnes Value Consciousness: Fully Awake Oxygen Saturation: O2 needed for >90% Discharge Sedation Level of Care: Fast Track Phase II Post Sedation Plan On clinical assessment, the patient appears to have tolerated the sedation without complications. Patient is recovering as anticipated. Patient will continue to be monitored by nursing and may be discharged when sedation discharge criteria are met per below protocol. Upon Completions of procedure up to 15 minutes continue every 5 minute vital signs and the P.A.R. score; then discharge to a Phase I or Fast Track to Phase II per the following guidelines: * Discharge Patient to appropriate Phase II area if PAR is 8 or greater or return to pre- procedure baseline. The post - procedure orders will be as directed. * If PAR score is less than 8 or not return to pre-procedure baseline then patient will follow Phase I monitoring till PAR is reached for Phase II. The Phase I may be done in procedure room or may call to secure a Phase I area. * If naloxone or flumazenil are used for reversal, hold in Phase I for continued monitoring from when last reversal dose was given for a minimum of 60 minutes or longer pending the nurse and/or physician discretion of patient condition before discharge to Phase II. Please call the Sedation Physician to re-evaluate and complete post-note for discharge to Phase II area. Do NOT discharge from procedure sedation or Phase 1 until post- sedation evaluation note is complete by procedure /sedation MD Sedation Discharge Instructions to be given to the patient at discharge to home.
[2020-01-03] MEDS ORDERED: NITROGLYCERIN SL 0.4 MG/TAB TAB SL PRN (18:29)
[2020-01-03] MEDS ORDERED: DOCUSATE SODIUM/SENNA 50/8.6MG TAB PO PRN (18:29)
--- NOTE | 2020-01-03 18:40 | Cardiac Catheterization ---
ACC Data: Transition Nurse Cardiac Status Clinical evaluation leading to the procedure CAD Presenation: Non STEMI Anginal Classification: CCS IV Heart Failure: No Cardiogenic Shock within 24 Hours: No Cardiac Arrest within 24 Hours: No Imaging Studies Past 6 Months: No Stress Studies Past 6 Months: No Diagnostic Physicians Name: Maicol Knutson MD Status: Urgent Closure Device Percutaneous Entry Location: Radial Closure Device: Radial Band Recommendations: PCI without planned CABG PCI Indication: PCI for high risk Non-MANGO Lesion Segment Name: distal RCA - R PAV branch Culprit Artery: Yes Stenosis Prior to Rx (%): 90 Chronic Total Occlusion: No IVUS: No FFR: No Pre-Procedure JEFF Flow: 3 Previously Treated Lesion: No Lesion Complexity: High/C Lesion Length (mm): 18 Thrombus Present: Yes Bifurcation Lesion: Yes Guidewire Across Lesion: Stenosis Post-Procedure (%): 0 Post-Procedure JEFF Flow: 3 Devices(s) Deployed: Yes Yes Lesion #2 Segment Name: ostial PDA Culprit Artery: Yes Stenosis Prior to Rx (%): 95 Chronic Total Occlusion: No IVUS: No FFR: No Pre-Procedure JEFF Flow: 2 Previously Treated Lesion: No Lesion Complexity: High/C Lesion Length (mm): 12 Thrombus Present: Yes Bifurcation Lesion: Yes Guidewire Across Lesion: Yes Stenosis Post-Procedure (%): 0 Post-Procedure JEFF Flow: 3 Devices(s) Deployed: Yes Intraprocedure Events Significant Disection: No Perforation: No Cardiac Cath Procedure Full Procedure Date January 03, 2020 Pre-Procedure Diagnosis Pre-Procedure Diagnosis: Acute Coronary Syndrome AUC Score AUC Score: 9 Post-Procedure Diagnosis Post-Procedure Diagnosis: Severe CAD and Successful PCI Procedure(s) Performed Procedure(s) Performed: Drug Eluting Stent Medical Health Researcher Maicol Knutson MD Apprentice(s) Shanda Estimated Blood Loss Estimated Blood Loss: 20 Medication(s) Medication(s): Clopidogrel, Fentanyl (12.5 mcg IV), Heparin (5000 units IV), Lidocaine 1% (Local infiltration access site), Nicardipine (250 mcg intra- arterial after arterial sheath insertion), Nitroglycerin and Versed (1 mg IV) Summary of Findings Indication: Acute coronary syndrome Access: 6 Fr slender right radial artery Catheters: JR4 guide Findings: For full details of patient's coronary angiography please see cath report dictated by Dr. Cespedes. Briefly, patient found to have severe single vessel disease with a 90% right posterior AV branch acute stenosis just after takeoff of PDA. PDA with 95% ostial stenosis. Decision to proceed with PCI. -- PCI -- Antithrombotic therapy: Heparin, clopidogrel Procedure: RCA cannulated with JR4 guide Whisper wire passed across right posterior AV branch stenosis into distal PLB Senior Sales Consultant 50 wire passed into distal PDA Ostial PDA lesion predilated with 2.0 compliant balloon Right posterior AV branch stenosis dilated with 2.0 compliant balloon Ostial/proximal PDA stented with 2.25 x 12 mm Pierz drug-eluting stent Distal RCA/right posterior AV branch stenosis redilated with 2.5 balloon 3.0 x 22 mm Pierz drug-eluting stent placed from distal RCA across takeoff of PDA and across right PAV branch stenosis PDA rewired with fuel pilot engineer 50 wire PDA stent redilated across stent struts with 2.0 balloon Distal RCA stent postdilated with 3.5 NC balloonn IC vasodilators administered for spasm Post procedure JEFF 3 flow, stent well expanded with minimal residual stenosis in distal RCA/right posterior AV branch. Mild residual ostial stenosis in PDA but JEFF-3 flow. Arterial Closure: TR band Summary: 1. Successful PCI of distal RCA, PDA bifurcation with 2 drug-eluting stents (T formation 3.0 x 22 mm Ancelmo to distal RCA into R-PAV, 2.25 x 12 mm Ancelmo to PDA) Recommendations: To PCU for continued monitoring Reloaded with clopidogrel 300 mg in Transition Nurse Continue dual-antiplatelet therapy for at least 1 year, likely indefinitely Continue statin, and ASCVD risk factor modification Consult cardiac Rehab Hemodynamics Rest Ao:: 146/75/102 Final Ao: 144/78/109 LV: -- Recommendations Recommendations: PCI without planned CABG Specimens Specimens: None Radiation Exposure (mGy) 6246 Contrast (mls) 240 Fluids (cc crystalloids) Fluids (cc crystalloids): 150 Drains Drains: none Anesthesia moderate Procedural Complication(s) None Disposition PCU I attest to the content of the Intraoperative Record and any orders documented therein. Any exceptions are noted below. [facility] Card Cath Procedure Codes Moderate Sedation Procedure 2: Sedation/Anesthesia: 07915 Mod Sedation by the same physician; Ea [id number] Minutes Stenting Procedure 1: Cardiovascular Stent Procedures: 23366 Perc transcatheter placement of intracoronary stent(s), with ang Procedure 2: Cardiovascular Stent Procedures: 35322 Ea addl branch of a major coronary artery PG Care Time/CCT Total # of Minutes Spent Total Time Spent with Patient: Total time spent is greater than 50% in coordination of care (as documented) at patient's floor/unit and/or counseling patient:
[2020-01-03] MEDS ORDERED: SODIUM CHLORIDE 0.9% 1000ML 1,000 ML IV SCH (18:45)
[2020-01-03] MEDS: ATENOLOL 25 MG TABLET PO SCH (20:34)
[2020-01-03] MEDS: lisinopriL 10 MG TAB PO SCH (20:34)
[2020-01-03] MEDS ORDERED: ASPIRIN 81 MG ECTAB PO SCH (21:00)
--- NOTE | 2020-01-04 05:46 | Electrocardiogram Report ---
Test Reason : Blood Pressure : / mmHG Vent. Rate : 064 BPM Atrial Rate : 064 BPM P-R Int : 156 ms QRS Dur : 086 ms QT Int : 412 ms P-R-T Axes : 044 017 086 degrees QTc Int : 425 ms Normal sinus rhythm Inferior infarct , age undetermined Abnormal ECG When compared with ECG of 28-FEB-2018 00:03, No significant change was found Confirmed by Mike Moreno ([id number]) on 01/04/2020 5:46:26 AM Referred By: REFERRED SELF Confirmed By:Mike Moreno
--- NOTE | 2020-01-04 05:47 | Electrocardiogram Report ---
Test Reason : Blood Pressure : / mmHG Vent. Rate : 062 BPM Atrial Rate : 062 BPM P-R Int : 160 ms QRS Dur : 082 ms QT Int : 418 ms P-R-T Axes : 024 021 060 degrees QTc Int : 424 ms Normal sinus rhythm Cannot rule out Anterior infarct , age undetermined Inferior infarct Abnormal ECG When compared with ECG of 28-FEB-2018 00:03, No significant change was found Confirmed by Mike Moreno ([id number]) on 01/04/2020 5:47:17 AM Referred By: REFERRED SELF Confirmed By:Mike Moreno
--- NOTE | 2020-01-04 05:53 | Electrocardiogram Report ---
Test Reason : Blood Pressure : / mmHG Vent. Rate : 059 BPM Atrial Rate : 059 BPM P-R Int : 156 ms QRS Dur : 086 ms QT Int : 430 ms P-R-T Axes : 037 038 071 degrees QTc Int : 425 ms Sinus bradycardia Possible Inferior infarct When compared with ECG of 03-JAN-2020 14:11, No significant change was found Confirmed by Mike Moreno ([id number]) on 01/04/2020 5:53:19 AM Referred By: REFERRED SELF Confirmed By:Mike Moreno
--- NOTE | 2020-01-04 05:54 | Electrocardiogram Report ---
Test Reason : Blood Pressure : / mmHG Vent. Rate : 058 BPM Atrial Rate : 058 BPM P-R Int : 156 ms QRS Dur : 082 ms QT Int : 428 ms P-R-T Axes : 031 022 077 degrees QTc Int : 420 ms Sinus bradycardia Inferior infarct , age undetermined Abnormal ECG When compared with ECG of 03-JAN-2020 14:44, ST more elevated in Inferior leads Confirmed by Mike Moreno ([id number]) on 01/04/2020 5:54:10 AM Referred By: REFERRED SELF Confirmed By:Mike Moreno
[2020-01-04] MEDS: ATENOLOL 25 MG TABLET PO SCH (08:06)
[2020-01-04] MEDS: lisinopriL 10 MG TAB PO SCH (08:06)
[2020-01-04 08:33] LABS: Hematocrit (blood only) 44.3 % (42-52); Hemoglobin 15.3 g/dL (14.0-18.0); Immature Granulocytes # (auto) 0.06 K/uL (0.00-0.02); Immature Granulocytes % (auto) 0.4 %; Lymphocytes # (auto) 1.21 K/uL (1.2-3.4); Lymphocytes % (auto) 7.8 %; Mean Corpuscular Hemoglobin 30.9 pg (25-34); Mean Corpuscular Hgb Conc 34.5 g/dL (32-36); Mean Corpuscular Volume 89.5 fL (80-100); Mean Platelet Volume 9.9 fL (7.4-10.4); Monocytes # (auto) 0.52 K/uL (0.11-0.59); Monocytes % (auto) 3.4 %; Neutrophils # (auto) 13.66 K/uL (1.4-6.5); Neutrophils % (auto) 88.4 %; Platelet Count 295 K/uL (130-400); RDW Coefficient of Variation 13.1 % (11.5-14.5); RDW Standard Deviation 42.8 fL (36.4-46.3); Red Blood Count 4.95 M/uL (4.7-6.1); White Blood Count 15.45 K/uL (4.8-10.8)
[2020-01-04 08:56] LABS: BUN Creatinine Ratio 20.6 (10-20); Calcium 9.3 mg/dl (8.5-10.1); Creatinine Clr Calc Pharmacy 76.8 ml/min; Est GFR (Non-African American) 61.3; Magnesium 2.4 mg/dl (1.8-2.4); Phosphorus 4.2 mg/dl (2.5-4.9); Potassium 4.4 mmol/L (3.5-5.1)
[2020-01-04] MEDS ORDERED: CLOPIDOGREL BISULFATE 75 MG TAB PO SCH (09:00)
[2020-01-04] MEDS ORDERED: AMLODIPINE BESYLATE 5 MG TAB PO SCH (09:00)
--- NOTE | 2020-01-04 11:41 | Cardiology Progress Note ---
Date of Service January 04, 2020 Assessment & Plan (1) Unstable angina pectoris: Patient presented yesterday with acute chest pain and discomfort with dynamic intermittent ST segment changes observed on telemetry in route to diagnostic cardiac catheterization. Study demonstrated high-grade greater than 90% distal RCA stenosis as culprit lesion and underwent drug-eluting stent insertion with good result Patient on appropriate medical therapies except statin which patient chronically nontolerant Plan continue current medical therapies and discharged home pending review of upcoming echocardiogram this morning Follow-up with cardiology 2 weeks time, discuss PCSK9 inhibitor (2) Precordial chest pain: (3) Status post insertion of drug-eluting stent into right coronary artery for coronary artery disease: Continue aspirin and clopidogrel uninterrupted minimum 6 months Patient underwent lengthy procedure with heavy body mass. Patient report any skin irritation and discussed fluoroscopy/radiation received Admission and Anticipated Discharge Date Admission Date: January 03, 2020 Subjective Patient seen and examined, chart, telemetry reviewed Patient feels well this morning. No chest pains no tachypalpitations no dizziness. Right radial access site healing well. No edema or shortness of breath. No skin irritation Physical Exam Constitutional: WD/WN, vitals as above + acute distress (Patient uncomfortable in mild acute distress) and + obese Eyes: PERRL, conjunctivae normal, anicteric sclerae ENMT: Mallampati Class: III Neck: trachea midline, no thyromegaly + thick neck Respiratory: normal respiratory effort, lungs clear to auscultation Cardiovascular: RRR, no murmur, no edema Rate/Rhythm: regular rate and regular rhythm Heart Sounds: normal S1 and normal S2; no gallop and no murmur Palpation: normal PMI Vessels: normal carotid upstroke and radial pulses present; no JVD and no carotid bruit Extremities: no edema Gastrointestinal (Abdomen): normal bowel sounds, soft, nontender, no hepatosplenomegaly Musculoskeletal: no cyanosis or clubbing, extremities motor strength 5/5 Skin: no rashes, warm and dry Neurologic: PERRL, EOMI, accommodation nl, no face palsy, no dysarthria Psychiatric: A+Ox3, euthymic affect Results & Data ([facility]) Vital Signs (Past 12 Hours) Vital Signs Temp Pulse Resp BP Pulse Ox 01/04/20 07:15 36.4 C L 65 20 145/78 H 96 01/04/20 02:30 36.4 C L 56 L 18 147/83 H 94 01/04/20 00:30 36.4 C L 58 L 18 147/83 H 95 01/04/20 00:25 36.4 C L 56 L 18 143/85 H 93 Laboratory Results Laboratory Results - last 24 hr 01/03/20 01/03/20 01/03/20 14:00 14:00 14:00 WBC 10.25 RBC 5.10 Hgb 15.8 Hct 46.4 MCV 91.0 MCH 31.0 MCHC 34.1 RDW Std Deviation 43.8 RDW Coeff of Jay Jay 13.3 Plt Count 275 MPV 9.8 Immature Gran % (Auto) 0.3 Neut % (Auto) 57.1 Lymph % (Auto) 31.8 Hickman % (Auto) 7.8 Eos % (Auto) 2.6 Baso % (Auto) 0.4 Neut # (Auto) 5.85 Lymph # (Auto) 3.26 Hickman # (Auto) 0.80 H Eos # (Auto) 0.27 Baso # (Auto) 0.04 Immature Gran # (Auto) 0.03 H PT 11.0 INR 1.0 APTT 25.1 PTT Ratio 0.9 Activ Coag Time Kaolin Sodium 135 L Potassium 4.0 Chloride 99 Carbon Dioxide 30 Anion Gap 6.0 BUN 19 H Creatinine 1.15 Est Cr Clr Drug Dosing 78.2 Est GFR ( Amer) 73.3 Est GFR (Non-Af Amer) 63.2 BUN/Creatinine Ratio 16.1 Glucose 199 H POC Glucose Calcium 9.4 Phosphorus Magnesium Total Bilirubin 0.7 AST 18 ALT 36 Alkaline Phosphatase 103 Troponin I 0.023 Total Protein 8.5 H Albumin 3.5 Globulin 4.9 H Albumin/Globulin Ratio 0.7 L Lipase 158 01/03/20 01/03/20 01/03/20 16:28 17:00 17:42 WBC RBC Hgb Hct MCV MCH MCHC RDW Std Deviation RDW Coeff of Jay Jay Plt Count MPV Immature Gran % (Auto) Neut % (Auto) Lymph % (Auto) Hickman % (Auto) Eos % (Auto) Baso % (Auto) Neut # (Auto) Lymph # (Auto) Hickman # (Auto) Eos # (Auto) Baso # (Auto) Immature Gran # (Auto) PT INR APTT PTT Ratio Activ Coag Time Kaolin 136 230 H 235 H Sodium Potassium Chloride Carbon Dioxide Anion Gap BUN Creatinine Est Cr Clr Drug Dosing Est GFR ( Amer) Est GFR (Non-Af Amer) BUN/Creatinine Ratio Glucose POC Glucose Calcium Phosphorus Magnesium Total Bilirubin AST ALT Alkaline Phosphatase Troponin I Total Protein Albumin Globulin Albumin/Globulin Ratio Lipase 01/03/20 01/03/20 01/04/20 18:20 20:02 07:13 WBC RBC Hgb Hct MCV MCH MCHC RDW Std Deviation RDW Coeff of Jay Jay Plt Count MPV Immature Gran % (Auto) Neut % (Auto) Lymph % (Auto) Hickman % (Auto) Eos % (Auto) Baso % (Auto) Neut # (Auto) Lymph # (Auto) Hickman # (Auto) Eos # (Auto) Baso # (Auto) Immature Gran # (Auto) PT INR APTT PTT Ratio Activ Coag Time Kaolin Sodium Potassium Chloride Carbon Dioxide Anion Gap BUN Creatinine Est Cr Clr Drug Dosing Est GFR ( Amer) Est GFR (Non-Af Amer) BUN/Creatinine Ratio Glucose POC Glucose 176 H 250 H 192 H Calcium Phosphorus Magnesium Total Bilirubin AST ALT Alkaline Phosphatase Troponin I Total Protein Albumin Globulin Albumin/Globulin Ratio Lipase 01/04/20 01/04/20 08:04 08:04 WBC 15.45 H RBC 4.95 Hgb 15.3 Hct 44.3 MCV 89.5 MCH 30.9 MCHC 34.5 RDW Std Deviation 42.8 RDW Coeff of Jay Jay 13.1 Plt Count 295 MPV 9.9 Immature Gran % (Auto) 0.4 Neut % (Auto) 88.4 Lymph % (Auto) 7.8 Hickman % (Auto) 3.4 Eos % (Auto) 0.0 Baso % (Auto) 0.0 Neut # (Auto) 13.66 H Lymph # (Auto) 1.21 Hickman # (Auto) 0.52 Eos # (Auto) 0.00 Baso # (Auto) 0.00 Immature Gran # (Auto) 0.06 H PT INR APTT PTT Ratio Activ Coag Time Kaolin Sodium 134 L Potassium 4.4 Chloride 98 Carbon Dioxide 24 Anion Gap 12.0 H BUN 24 H Creatinine 1.18 Est Cr Clr Drug Dosing 76.8 Est GFR ( Amer) 71.0 Est GFR (Non-Af Amer) 61.3 BUN/Creatinine Ratio 20.6 H Glucose 208 H POC Glucose Calcium 9.3 Phosphorus 4.2 Magnesium 2.4 Total Bilirubin AST ALT Alkaline Phosphatase Troponin I Total Protein Albumin Globulin Albumin/Globulin Ratio Lipase
--- NOTE | 2020-01-04 12:09 | Hospitalist Progress Note ---
Date of Service January 04, 2020 Assessment & Plan (1) Precordial chest pain: Unstable angina Presented with severe precordial chest pain with radiation to neck and left upper extremity Has history of prior cardiac cath with stent placement and also history of RI Remains symptomatic even with sublingual nitro EKG showed subtle changes involving inferior leads suspicious for ACS Appreciate cardiology input and the patient was taken to the cardiac Instructor Product Inspection emergently He was started with intravenous heparin Status post cardiac cath and Successful PCI of distal RCA, PDA bifurcation with 2 drug-eluting stents (T formation 3.0 x 22 mm Ancelmo to distal RCA into R-PAV, 2.25 x 12 mm Ancelmo to PDA) Denies any symptoms and has been feeling a lot better Awaiting echo before discharging home this afternoon (2) History of left heart catheterization (LHC): With prior LAD stent, most recent in 2013 (3) GERD (gastroesophageal reflux disease): Has GERD Symptoms may have increased with recent use of steroid on top of aspirin and Plavix We will continue with PPI (4) Rheumatoid arthritis: History not arthritis on Enbrel Recent flareup treated with tapering dose of steroid starting 50 mg a day and tapering every 3 days As of today he has been taking 15 We will hold off any steroid for now We will continue with his usual dose of prednisone on discharge (5) Diabetes mellitus, type 2: We will hold metformin Blood sugar is expected to be high SSI (6) MARKO (obstructive sleep apnea): Has been on home oxygen No acute symptoms His other medical conditions of hypertension, hyperlipidemia remain stable We will continue with his usual medications as an outpatient Likely discharge this afternoon Admission and Anticipated Discharge Date Admission Date: January 03, 2020 Subjective 01/04/2020 Patient was seen and examined in telemetry unit He is a status post cardiac cath and 10 PCI to RCA and PAD Denies any symptoms and wants to go home Review of Systems Review of Systems: All systems reviewed and are unremarkable except as noted below Cardiovascular: no chest pain and no palpitations Physical Exam Physical Exam: Lying in bed with some discomfort secondary to chest pain Constitutional: well developed, well nourished, + acute distress, + ill appearing and + obese Eyes: PERRL, conjunctivae normal, anicteric sclerae ENMT: external ear and nose normal, oropharynx normal Neck: trachea midline, no thyromegaly Respiratory: normal respiratory effort; no respiratory distress Auscultation: lungs clear to auscultation bilaterally Cardiovascular: Rate/Rhythm: regular rate and regular rhythm Heart Sounds: no murmur Gastrointestinal (Abdomen): Inspection/Auscultation: abdomen normal to inspection and normal bowel sounds Percussion/Palpation: abdomen soft; abdomen nontender Musculoskeletal: No acute arthritis involving any joints Neurologic: moves all extremities; no focal motor deficits Lymphatic: no cervical or axillary lymphadenopathy Results & Data Results & Data ([facility]) Vital Signs (Past 12 Hours) Vital Signs Temp Pulse Resp BP Pulse Ox 01/04/20 11:55 36.4 C L 58 L 20 127/63 94 01/04/20 07:15 36.4 C L 65 20 145/78 H 96 01/04/20 02:30 36.4 C L 56 L 18 147/83 H 94 01/04/20 00:30 36.4 C L 58 L 18 147/83 H 95 01/04/20 00:25 36.4 C L 56 L 18 143/85 H 93 Laboratory Results Short CBC 01/03/20 01/04/20 Range/Units 14:00 08:04 WBC 10.25 15.45 H (4.8-10.8) K/uL Hgb 15.8 15.3 (14.0-18.0) g/dL Hct 46.4 44.3 (42-52) % Plt Count 275 295 (130-400) K/uL BMP 01/03/20 01/04/20 14:00 08:04 Sodium 135 L 134 L Potassium 4.0 4.4 Chloride 99 98 Carbon Dioxide 30 24 BUN 19 H 24 H Creatinine 1.15 1.18 Glucose 199 H 208 H Calcium 9.4 9.3 Cardiac Enzymes 01/03/20 Range/Units 14:00 Troponin I 0.023 (0-0.045) ng/ml Liver Function 01/03/20 Range/Units 14:00 Total Bilirubin 0.7 (0.2-1) mg/dl AST 18 (15-37) U/L ALT 36 (12-78) U/L Alkaline Phosphatase 103 (45-117) U/L Albumin 3.5 (3.4-5.0) gm/dl Medications Administered Current Inpatient Medications Amlodipine Besylate (Amlodipine Besylate 5 Mg Tab) 5 mg PO DAILY JACE Stop: 02/03/20 08:59 Last Admin: 01/04/20 08:06 Dose: 5 mg Documented by: Aspirin (Aspirin 81 Mg Ectab) 81 mg PO QPM [facility] Stop: 02/02/20 20:59 Last Admin: 01/03/20 20:34 Dose: 81 mg Documented by: Atenolol (Atenolol 25 Mg Tablet) 25 mg PO BID [facility] Stop: 02/02/20 20:59 Last Admin: 01/04/20 08:06 Dose: 25 mg Documented by: Clopidogrel Bisulfate (Clopidogrel Bisulfate 75 Mg Tab) 75 mg PO QAM [facility] Stop: 02/03/20 08:59 Last Admin: 01/04/20 08:06 Dose: 75 mg Documented by: Lisinopril (Lisinopril 10 Mg Tab) 10 mg PO BID [facility] Stop: 02/02/20 20:59 Last Admin: 01/04/20 08:06 Dose: 10 mg Documented by: Nitroglycerin (Nitroglycerin Sl 0.4 Mg/Tab Tab) 0.4 mg SL UD PRN PRN Reason: Chest Pain Stop: 02/02/20 18:28 Senna/Docusate Sodium (Docusate Sodium/Senna 50/8.6mg Tab) 1 tab PO DAILY PRN PRN Reason: constipation Stop: 02/02/20 18:28
--- NOTE | 2020-01-04 14:55 | Electrocardiogram Report ---
Test Reason : Blood Pressure : / mmHG Vent. Rate : 061 BPM Atrial Rate : 061 BPM P-R Int : 162 ms QRS Dur : 080 ms QT Int : 422 ms P-R-T Axes : 028 018 059 degrees QTc Int : 424 ms Normal sinus rhythm Possible Inferior infarct (cited on or before 03-JAN-2020) Abnormal ECG When compared with ECG of 03-JAN-2020 14:48, Serial changes of Inferior infarct Present Confirmed by James Laguerre ([id number]) on 01/04/2020 2:54:49 PM Referred By: REFERRED SELF Confirmed By:James Laguerre
--- NOTE | 2020-01-05 08:09 | Discharge Summary ---
Date of Service January 05, 2020 Admission HPI Per Admitting Provider He is a 74-year-old obese male with significant past medical history of atherosclerotic CAD, status post angioplasty with stent placement to LAD past, type 2 diabetes, rheumatoid arthritis, sleep apnea, hyperlipidemia and GERD apparently has been complaining of precordial chest pain on and off since this morning. He has been complaining of arthritis pain likely secondary to flareup of rheumatoid arthritis and has been getting a tapering dose of prednisone for the last few days. After coming out from shower this morning he started to have precordial chest pain, like an elephant sitting on the chest with radiation of the pain to the neck and left upper extremity. He complained to have some shortness of breath and felt nauseous without any vomiting and without any sweating. The pain lasted for about 15 minutes and relieved to some extent with sublingual nitro. Was in pain in the emergency room and relevant test including EKG was noted to be abnormal but the chest pain continued and which was very suspicious for imminent ACS. He was evaluated by crushed stone grader in the emergency room and was rushed to the cardiac Reconditioner for further evaluation of chest pain. He denies any recent fever and/or chills, recent cough was increasing shortness of breath, denies any abdominal pain or distention, denies any recent weight gain or increasing edema. No change of his medications except he has been on a tapering dose of prednisone which he has been taking 15 mg a day as of today. Admission Exam Per Admitting Provider Physical Exam: Lying in bed with some discomfort secondary to chest pain Constitutional: well developed, well nourished, + acute distress, + ill appearing and + obese Eyes: PERRL, conjunctivae normal, anicteric sclerae ENMT: external ear and nose normal, oropharynx normal Neck: trachea midline, no thyromegaly Respiratory: normal respiratory effort; no respiratory distress Auscultation: lungs clear to auscultation bilaterally Cardiovascular: Rate/Rhythm: regular rate and regular rhythm Heart Sounds: no murmur Gastrointestinal (Abdomen): Inspection/Auscultation: abdomen normal to inspection and normal bowel sounds Percussion/Palpation: abdomen soft; abdomen nontender Musculoskeletal: No acute arthritis involving any joints Neurologic: moves all extremities; no focal motor deficits Lymphatic: no cervical or axillary lymphadenopathy Principal Diagnosis Unstable angina status post cardiac cath with ZULY in RCA and PDA, diabetes type 2, MARKO on home O2, stable rheumatoid arthritis Discharge Exam Constitutional well developed, well nourished, + acute distress, + ill appearing and + obese Eyes PERRL, conjunctivae normal, anicteric sclerae ENMT external ear and nose normal, oropharynx normal Neck trachea midline, no thyromegaly Respiratory normal respiratory effort; no respiratory distress Auscultation: lungs clear to auscultation bilaterally Cardiovascular Rate/Rhythm: regular rate and regular rhythm Heart Sounds: no murmur Gastrointestinal (Abdomen) Inspection/Auscultation: abdomen normal to inspection and normal bowel sounds Percussion/Palpation: abdomen soft; abdomen nontender Neurologic moves all extremities; no focal motor deficits Lymphatic no cervical or axillary lymphadenopathy Discharge Data Allergies Allergy/AdvReac Type Severity Reaction Status Date / Time Iodinated Contrast Media Allergy Intermediate HIVES Verified 01/03/20 15:02 shellfish derived Allergy Intermediate hives Verified 01/03/20 15:02 meperidine AdvReac Mild Nausea Verified 01/03/20 15:02 methotrexate AdvReac Mild Nausea Verified 01/03/20 15:02 oxycodone AdvReac Mild n/v Verified 01/03/20 15:02 [id number]-[id number]-Pex Reductase AdvReac Mild myalgias Verified 01/03/20 15:02 Inhibitor Consultations 01/03/20 14:59 ED Decision to Admit Stat 01/03/20 18:41 Consult Cardiac Rehabilitation Routine 01/04/20 14:05 Consult Cardiology Routine Procedures Performed Operation Date: 01/03/20 15:30 Actual Procedures p Drug Eluting Stent SGl Vessel - Javon Knutson MD s Cath, Coronaries ONLY (no LV) - Jose Francisco Cespedes MD s Cineradiography w/Routine Exam - Jose Francisco Cespedes MD s Drug Eluting Stent each ADDTL Vessel - Javon Knutson MD Ordered Studies 01/03/20 15:28 CL Cath Imgs for PACS use only Stat Hospital Course (1) Precordial chest pain: Unstable angina Presented with severe precordial chest pain with radiation to neck and left upper extremity Has history of prior cardiac cath with stent placement and also history of [place] Remains symptomatic even with sublingual nitro EKG showed subtle changes involving inferior leads suspicious for ACS Appreciate cardiology input and the patient was taken to the cardiac Reconditioner emergently He was started with intravenous heparin Status post cardiac cath and Successful PCI of distal RCA, PDA bifurcation with 2 drug-eluting stents (T formation 3.0 x 22 mm [place] to distal RCA into R-PAV, 2.25 x 12 mm [place] to PDA) Denies any symptoms and has been feeling a lot better Awaiting echo before discharging home this afternoon (2) History of left heart catheterization (LHC): With prior LAD stent, most recent in 2013 (3) GERD (gastroesophageal reflux disease): Has GERD Symptoms may have increased with recent use of steroid on top of aspirin and Plavix We will continue with PPI (4) Rheumatoid arthritis: History not arthritis on Enbrel Recent flareup treated with tapering dose of steroid starting 50 mg a day and tapering every 3 days As of today he has been taking 15 We will hold off any steroid for now We will continue with his usual dose of prednisone on discharge (5) Diabetes mellitus, type 2: We will hold metformin Blood sugar is expected to be high SSI (6) MARKO (obstructive sleep apnea): Has been on home oxygen No acute symptoms His other medical conditions of hypertension, hyperlipidemia remain stable We will continue with his usual medications as an outpatient Likely discharge this afternoon Total Time Total Time Spent Total Time Spent (In Minutes): 35 minutes Total Time Includes: Examination of the Patient, Discharge Planning, Medication Reconciliation and Communication With Other Providers Discharge Plan Discharge Items Patient Disposition: Home - Self-Care Reason For Visit: ACS Discharge Diagnosis: Unstable angina status post cardiac cath with ZULY in RCA and PDA, diabetes type 2, MARKO on home O2, stable rheumatoid arthritis Condition on Discharge: Good Activity: Per Instructions section Non-emergency contact: Primary Care Provider Call non-emergency contact if: you have any medication questions Follow-up/Referrals: Zev Lemus MD [Primary Care Provider] - 01/11/20 11:20 am (Date & Time 01/11/2020 11:20 AM Provider Zev Lemus MD Department [facility] cardiology office will call with an appointment within 2 weeks [facility] ) Diet: Heart Healthy Addtl Attending Provider Instructions: Continue uninterrupted use of aspirin and Plavix for at least 6 months Avoid any use of NSAID use ACTIVITY RECOMMENDATIONS: Excess manipulation of the wrist should be avoided for the next 24-48 hours. * No lifting over 2 pounds (approximately a 1/2 gallon of milk) with the utilized arm for 24 hours. * No strenuous activity such as bowling or tennis for 3 days. * Keep the site of the procedure covered with a bandage for 24 hours. *You may shower the day after the procedure. Do not take a tub bath or submerge the puncture site in water for the next 3 days. *Do not operate any motorized equipment for 3 days. SPECIAL CARE INSTRUCTIONS: The site may be slightly bruised and sore following your procedure. Should any of the following occur, contact the Dr. who performed your procedure. 1. Redness/inflammation, swelling, chills, or fever, or colored drainage at procedure site within 3-7 days after your procedure. 2. Coldness, discoloration, ongoing numbness, severe pain, or swelling. Expect mild tingling of hand and tenderness at the puncture site for up to three days. If this persists beyond three days, or other symptoms develop, notify the Dr. who performed your procedure. BLEEDING: If the procedure site on your wrist begins to bleed, do not panic 1. Place 1 or 2 fingers firmly just slightly above the insertion site to stop the bleeding. You may be able to feel your pulse as you hold pressure. 2. Lift your finger after 5 minutes to see if the bleeding has stopped. 3. Once the bleeding has stopped, gently wipe the wrist area clean with a bandage. * If the bleeding from your wrist does not stop after 10 minutes, or if there is a large amount of bleeding or spurting, call 911 ([address] drive yourself to the hospital). SKIN IRRITATION: * You may experience some redness and/or swelling in the area where radiation was administered. If any skin irritation occurs, please contact your family physician. FOLLOW UP VISIT: Keep any scheduled doctor appointments. Pending Studies at Discharge: No Stand-Alone Forms: My [employer], Smoking Cessation Medications and DC Order Prescriptions: Continued metformin 500 mg Tablet Extended Release 24 Hr 500 mg PO PM RF: 0 Enbrel 50 mg/mL (0.98 mL) Syringe 0 ml subcut WK RF: 0 atenolol 25 mg Tablet 25 mg PO BID RF: 0 clopidogrel [Plavix] 75 mg Tablet 75 mg PO QAM RF: 0 aspirin 81 mg Tablet,Delayed Release (Dr/Ec) 81 mg PO QPM RF: 0 lisinopril 10 mg Tablet 10 mg PO BID RF: 0 nitroglycerin [Nitrostat] 0.4 mg Tablet, Sublingual 0.4 mg Sublingual UD PRN (Reason: Chest Pain) RF: 0 sennosides-docusate sodium [Senokot-S] 8.6-50 mg tablet 1 tab PO DAILY PRN (Reason: constipation) Qty: 10 RF: 2 prednisone 5 mg tablet 5 mg PO .TAPER UD RF: 0 amlodipine [Norvasc] 5 mg tablet 5 mg PO DAILY RF: 0 sildenafil (pulm.hypertension) [Revatio] 20 mg tablet 20 mg PO UD RF: 0 Discharge Orders: Discharge Order (Routine); Ordered 01/04/20 Ordered By: Cyrus Gupta/Other Patient Handouts: Coronary Stents, Having Cardiac Catheterization, Exercise for a Healthier Heart, Coronary Angioplasty Stenting Dc, Cardiac Catheterization Dc Admission Data Admit Date/Time: 01/03/20 17:22 Attending Provider: Cyrus Vazquez Admit Provider: Cyrus Vazquez Primary Care Provider: Zev Lemus Other Providers: Cyrus Vazquez ; Jose Francisco Cespedes Other Interventions: Discharge Summary Assessment (RN) Last Done: 01/04/20 14:10
== END 2020-01-04 14:33 | disposition home or self-care (01) | DRG 247 ==
LOC: ED 13:49 → CC 15:28 → 2S 17:22
PROC: CLB.CCO (2020-01-03 15:30)

== ENCOUNTER 2021-10-23 15:11 | Inpatient (IN) ==
[2021-10-23 15:33] LABS: Basophils # (auto) 0.02 K/uL (0-0.2); Basophils % (auto) 0.2 %; Eosinophils # (auto) 0.18 K/uL (0-0.5); Hematocrit (blood only) 40.4 % (42-52); Hemoglobin 13.6 g/dL (14.0-18.0); Immature Granulocytes # (auto) 0.02 K/uL (0.00-0.02); Immature Granulocytes % (auto) 0.2 %; Lymphocytes # (auto) 1.07 K/uL (1.2-3.4); Lymphocytes % (auto) 11.9 %; Mean Corpuscular Hemoglobin 30.5 pg (25-34); Mean Corpuscular Hgb Conc 33.7 g/dL (32-36); Mean Corpuscular Volume 90.6 fL (80-100); Mean Platelet Volume 9.4 fL (7.4-10.4); Monocytes # (auto) 1.03 K/uL (0.11-0.59); Monocytes % (auto) 11.5 %; Neutrophils # (auto) 6.67 K/uL (1.4-6.5); Neutrophils % (auto) 74.2 %; Platelet Count 322 K/uL (130-400); RDW Coefficient of Variation 13.8 % (11.5-14.5); RDW Standard Deviation 45.5 fL (36.4-46.3); Red Blood Count 4.46 M/uL (4.7-6.1); White Blood Count 8.99 K/uL (4.8-10.8)
[2021-10-23 15:42] LABS: Partial Thromboplastin Ratio 0.9; Partial Thromboplastin Time 25.4 Seconds (21.0-31.0); Prothrombin Time 11.1 Seconds (9.0-12.0)
[2021-10-23] MEDS ORDERED: NITROGLYCERIN SL 0.4 MG/TAB TAB ONE (15:43)
[2021-10-23] MEDS ORDERED: NITROGLYCERIN SL 0.4 MG/TAB TAB SL PRN ×2 (15:48→19:10)
[2021-10-23] MEDS ORDERED: ASPIRIN CHEW 324 MG PO STA (15:48)
--- NOTE | 2021-10-23 15:54 | Emergency Department Note ---
History of Present Illness General Chief complaint: Chest Pain Stated complaint: CHEST PAIN, SOB Time Seen by Provider: 10/23/21 15:40 Source: patient History of Present Illness Provider complaint: Chest pain Onset (ago): hour(s) Location: chest Radiation: neck and extremity Pain Consistency: + intermittent Quality: + other (Pressure like someone sitting on his chest) Relieved By: + none Associated symptoms: + chest pain, + shortness of breath and + weakness (Lightheadedness); no cough, no diaphoresis, no fever/chills or no nausea/vomiting This is a 76-year-old male who presents with chest pain starting approximately 1030 this morning while he was doing yard work. He does admit that he has been having the pain intermittently for the past 2 weeks but he has been ignoring it. He states that the pain feels similar to when he had his prior heart problem. He has had cardiac stents in the past. He describes it as someone sitting on his chest with radiation to his neck and his left arm. He has associated shortness of breath. He rates it a 6 out of 10 in severity. He denies any mir phoresis or nausea but states that he felt extremely lightheaded. He denies any recent illness, fever, cough or cold symptoms, abdominal pain, vomiting, diarrhea or urinary symptoms. He did have a baby aspirin last night. Home Medications Medication Instructions Recorded Confirmed Type aspirin 81 mg tablet,delayed 81 mg PO QPM 02/28/18 10/23/21 History release atenolol 25 mg tablet 25 mg PO BID 02/28/18 10/23/21 History clopidogrel 75 mg tablet (Plavix) 75 mg PO QAM 02/28/18 10/23/21 History lisinopril 10 mg tablet 10 mg PO QPM 02/28/18 10/23/21 History nitroglycerin 0.4 mg sublingual 0.4 mg SUBLINGUAL UD PRN 02/28/18 10/23/21 History tablet (Nitrostat) sennosides 8.6 mg-docusate sodium 1 tab PO DAILY PRN #10 tab 03/03/18 10/23/21 Rx 50 mg tablet (Senokot-S) metformin 500 mg tablet,extended 500 mg PO BID 04/14/18 10/23/21 History release 24 hr amlodipine 5 mg tablet (Norvasc) 5 mg PO DAILY 01/03/20 10/23/21 History prednisone 5 mg tablet 5 mg PO DAILY 01/03/20 10/23/21 History evolocumab 140 mg/mL subcutaneous 140 mg SUBCUT .[id number] 10/23/21 10/23/21 History pen injector (Repatha SureClick) gabapentin 300 mg capsule 300 mg PO HS 10/23/21 10/23/21 History semaglutide (Ozempic) 0.5 mg SUBCUT WK 10/23/21 10/23/21 History sildenafil (pulm.hypertension) 20 0 mg PO DIRECTED 10/23/21 10/23/21 History mg tablet terazosin 2 mg capsule 2 mg PO HS 10/23/21 10/23/21 History upadacitinib 15 mg tablet,extended 15 mg PO DAILY 10/23/21 10/23/21 History release 24 hr (Rinvoq) Allergies Allergy/AdvReac Type Severity Reaction Status Date / Time Iodinated Contrast Media Allergy Intermediate HIVES Verified 10/23/21 17:15 shellfish derived Allergy Intermediate hives Verified 10/23/21 17:15 meperidine AdvReac Mild Nausea Verified 10/23/21 17:15 methotrexate AdvReac Mild Nausea Verified 10/23/21 17:15 oxycodone AdvReac Mild n/v Verified 10/23/21 17:15 Cisedoe-IUA-GqH Reductase AdvReac Mild myalgias Verified 10/23/21 17:15 Inhibitor [Jrhyrks-Dke-Bbl Reductase Inhibitor] Past Med/Surg History Medical History (Updated 10/23/21 @ 18:59 by Anatoly Jarrett MD) CAD (coronary artery disease) Status post PTCA and stenting of the proximal LAD January 2000. Acute ST elevation [place] in August 2013, PCI with a ZULY to the proximal LAD with residual 60% stenosis of the circumflex noted. Presentation in December 2019 with unstable angina, status post successful PCI of distal RCA, PDA bifurcation with 2 drug-eluting stents Diabetes mellitus, type 2 History of left heart catheterization (LHC) "02/01/00 PTCA and Stent of 90% prox LAD lesion. 50%left circ untreated. 2014 LHC DESx2 to LAD " Hx of pancreatitis 02/2018 [facility] Myocardial Infarction 2013 OR 2014-NO RECENT CHEST PAIN PER SPOUSE On anticoagulant therapy DAILY PLAVIX SINCE 1999 On home oxygen therapy HS ONLY MARKO (obstructive sleep apnea) Rheumatoid arthritis Sleep apnea CAN'T TOLERATE CPAP -USES OXYGEN 2L/MIN NC Surgical History History of cardiac cath -1 [facility] History of cataract surgery R/L History of open reduction and internal fixation (ORIF) procedure LEFT ANKLE History of total knee replacement RIGHT Family History Other No significant family history Social History Smoking Status: Former smoker Second Hand Exposure: No; Hx Alcohol Use: No Hx Substance Use: No Preferred Language: Armenian Communication Ability: Effective Tester Equipment Required: No Beliefs That Will Affect Care: None Current Living Situation: Spouse Feels Safe at Home: Yes Assistive Devices: None Review of Systems See HPI for pertinent positives & negatives. and A total of 10 systems reviewed and were otherwise negative Physical Exam Vital Signs Vital Signs - 24 hr 10/23/21 15:13 10/23/21 15:49 10/23/21 15:58 Temperature 36.5 C Temperature Source Oral Pulse Rate 72 78 Pulse Rate from SpO2 Sensor 78 Respiratory Rate 18 19 Respiratory Effort / Characteristics Non-Labored Respiratory Depth Normal Respiratory Pattern Regular Blood Pressure 152/83 H 127/74 Blood Pressure Mean 106 91 Pulse Oximetry 95 100 96 Oxygen Delivery Method Room Air Room Air Nasal Cannula Oxygen Flow Rate 1 Sepsis Recent Fever Within 48 Hours No Sepsis New/Unexplained Change in Mental Status No Sepsis Action Taken by Nursing No Action Required 10/23/21 16:00 10/23/21 16:30 10/23/21 17:00 Temperature Temperature Source Pulse Rate 76 68 65 Pulse Rate from SpO2 Sensor 76 67 64 Respiratory Rate 17 17 16 Respiratory Effort / Characteristics Respiratory Depth Respiratory Pattern Blood Pressure 107/70 111/64 121/72 Blood Pressure Mean 82 79 88 Pulse Oximetry 95 91 100 Oxygen Delivery Method Nasal Cannula Nasal Cannula Oxygen Flow Rate 1 1 Sepsis Recent Fever Within 48 Hours Sepsis New/Unexplained Change in Mental Status Sepsis Action Taken by Nursing Constitutional: Vital signs reviewed. Eyes: Pupils are equal round reactive to light. Conjunctiva are noninjected. ENT: Pharynx is clear without erythema or exudate. Mucous membranes are moist. Neck supple without meningeal signs. Respiratory: Clear to auscultation bilaterally. Breath sounds are equal bilaterally. Cardiovascular: Regular rate and rhythm. No rubs or gallops. GI: Soft, nondistended and nontender. Bowel sounds are present. Musculoskeletal: No peripheral edema. No lower extremity tenderness. Integumentary: No cyanosis. or jaundice. Neurological: The patient is awake and alert. No focal deficits. Psychiatric: Normal affect. Not anxious appearing. Course Administered Medications Discontinued Medications Aspirin (Aspirin Chew 324 Mg) 324 mg PO NOW STA Stop: 10/23/21 15:49 Last Admin: 10/23/21 15:51 Dose: 324 mg Documented by: [id number] Fentanyl Citrate (Fentanyl Citrate 100 Mcg/2 Ml Vial) 50 mcg IV NOW STA Stop: 10/23/21 16:00 Last Admin: 10/23/21 16:09 Dose: 50 mcg Documented by: [id number] Fentanyl Citrate (Fentanyl Citrate 100 Mcg/2 Ml Vial) 50 mcg IV NOW STA Stop: 10/23/21 16:50 Last Admin: 10/23/21 16:57 Dose: 50 mcg Documented by: [id number] Nitroglycerin (Nitroglycerin Sl 0.4 Mg/Tab Tab) Confirm Administered Dose 0.4 mg .ROUTE .STK-MED ONE Stop: 10/23/21 15:44 Last Admin: 10/23/21 15:44 Dose: 0.4 mg Documented by: [id number] Ondansetron HCl (Ondansetron Inj 2 Mg/Ml 2 Ml Vial) 4 mg IV NOW STA Stop: 10/23/21 16:00 Last Admin: 10/23/21 16:09 Dose: 4 mg Documented by: [id number] Medical Decision Making Differential Diagnosis Unstable angina, [place], GERD, pleurisy, pneumonia Medical Records Attestation: I reviewed the patient's medical records. I did perform a limited focused review of portions of the patient's old chart on the electronic medical record. The patient was admitted in December 2019 for NSTEMI and had 2 cardiac stents placed. Home Medications Current Medication List: was personally reviewed by me Laboratory Data Attestation: I reviewed the patient's lab results. Result diagrams: 10/23/21 15:10 10/23/21 15:10 Lab Results 10/23/21 10/23/21 10/23/21 Range/Units 15:10 15:10 15:10 WBC 8.99 (4.8-10.8) K/uL RBC 4.46 L (4.7-6.1) M/uL Hgb 13.6 L (14.0-18.0) g/dL Hct 40.4 L (42-52) % MCV 90.6 (80-100) fL MCH 30.5 (25-34) pg MCHC 33.7 (32-36) g/dL RDW Std Deviation 45.5 (36.4-46.3) fL RDW Coeff of Jay Jay 13.8 (11.5-14.5) % Plt Count 322 (130-400) K/uL MPV 9.4 (7.4-10.4) fL Immature Gran % (Auto) 0.2 % Neut % (Auto) 74.2 % Lymph % (Auto) 11.9 % [place] % (Auto) 11.5 % Eos % (Auto) 2.0 % Baso % (Auto) 0.2 % Neut # (Auto) 6.67 H (1.4-6.5) K/uL Lymph # (Auto) 1.07 L (1.2-3.4) K/uL [place] # (Auto) 1.03 H (0.11-0.59) K/uL Eos # (Auto) 0.18 (0-0.5) K/uL Baso # (Auto) 0.02 (0-0.2) K/uL Immature Gran # (Auto) 0.02 (0.00-0.02) K/uL PT 11.1 (9.0-12.0) Seconds INR 1.0 (0.9-1.1) APTT 25.4 (21.0-31.0) Seconds PTT Ratio 0.9 Sodium 135 L (136-145) mmol/L Potassium 3.7 (3.5-5.1) mmol/L Chloride 100 (98-107) mmol/L Carbon Dioxide 27 (21-32) mmol/L Anion Gap 8 (3-11) BUN 20 (6-23) mg/dl Creatinine 1.35 (0.6-1.4) mg/dl Est Cr Clr Drug Dosing 62.8 ml/min Est GFR ( Amer) 59.5 ml/min Est GFR (Non-Af Amer) 51.4 ml/min BUN/Creatinine Ratio 14.8 (10-20) Glucose 96 (70-99(Fasting)) mg/dl Calcium 9.6 (8.5-10.1) mg/dl Total Bilirubin 1.1 H (0.2-1.0) mg/dl AST 38 (13-39) U/L ALT 36 (7-52) U/L Alkaline Phosphatase 61 (34-104) U/L Troponin I High Sens 5.4 (0-20) pg/ml Total Protein 7.3 (6.0-8.3) gm/dl Albumin 4.3 (3.4-5.0) gm/dl Globulin 3.0 (2.5-4.0) gm/dl Albumin/Globulin Ratio 1.4 (0.9-2) SARS-CoV-2, RNA, NAAT (NEGATIVE) 10/23/21 Range/Units 15:50 WBC (4.8-10.8) K/uL RBC (4.7-6.1) M/uL Hgb (14.0-18.0) g/dL Hct (42-52) % MCV (80-100) fL MCH (25-34) pg MCHC (32-36) g/dL RDW Std Deviation (36.4-46.3) fL RDW Coeff of [place] (11.5-14.5) % Plt Count (130-400) K/uL MPV (7.4-10.4) fL Immature Gran % (Auto) % Neut % (Auto) % Lymph % (Auto) % [place] % (Auto) % Eos % (Auto) % Baso % (Auto) % Neut # (Auto) (1.4-6.5) K/uL Lymph # (Auto) (1.2-3.4) K/uL [place] # (Auto) (0.11-0.59) K/uL Eos # (Auto) (0-0.5) K/uL Baso # (Auto) (0-0.2) K/uL Immature Gran # (Auto) (0.00-0.02) K/uL PT (9.0-12.0) Seconds INR (0.9-1.1) APTT (21.0-31.0) Seconds PTT Ratio Sodium (136-145) mmol/L Potassium (3.5-5.1) mmol/L Chloride (98-107) mmol/L Carbon Dioxide (21-32) mmol/L Anion Gap (3-11) BUN (6-23) mg/dl Creatinine (0.6-1.4) mg/dl Est Cr Clr Drug Dosing ml/min Est GFR ( Amer) ml/min Est GFR (Non-Af Amer) ml/min BUN/Creatinine Ratio (10-20) Glucose (70-99(Fasting)) mg/dl Calcium (8.5-10.1) mg/dl Total Bilirubin (0.2-1.0) mg/dl AST (13-39) U/L ALT (7-52) U/L Alkaline Phosphatase (34-104) U/L Troponin I High Sens (0-20) pg/ml Total Protein (6.0-8.3) gm/dl Albumin (3.4-5.0) gm/dl Globulin (2.5-4.0) gm/dl Albumin/Globulin Ratio (0.9-2) SARS-CoV-2, RNA, NAAT NEGATIVE (NEGATIVE) Imaging Data Radiologist's Impression: Chest X-Ray 10/23/21 15:19 XR chest 1V portable CLINICAL HISTORY: Chest Pain. COMPARISON STUDY: 01/03/2020 TECHNIQUE: 1 view of the chest FINDINGS: Single frontal view of the chest demonstrates the cardiomediastinal silhouette to be within normal limits. The lungs are clear of alveolar opacities. There is no evidence for pleural effusion. There is no evidence for vascular congestion. There is no acute osseous pathology. IMPRESSION: 1. No acute cardiopulmonary disease. ACT 112: Negative or not required by law. Electronically signed by: Zaheer Trejo M.D. 10/23/2021 4:07 PM ECG Data Attestation: I personally reviewed and interpreted this ECG as follows: Indication: + chest pain Rate (beats per minute): 73 Rhythm: + normal sinus ECG Freeman: + Normal ECG ST segments: no ST elevation ECG Findings: + Q waves (Inferior); no PVCs Comparison ECG Date: from (January 04, 2020) Change: no significant change Additional Comments: Repeat twelve-lead EKG performed at 1653 per my interpretation shows normal sinus rhythm at a rate of 61 bpm. He has persistent Q waves in the inferior leads. No ST elevations are noted. No PVCs or any significant change from his prior EKG. MDM Narrative I did evaluate the patient as noted above. The patient is presenting with intermittent chest pain for the past 2 weeks. He states that he started developing chest pain at 1030 this morning. He was doing light yard work at the time. He feels like someone is sitting on his chest and it does radiate to his neck and his left arm. This feels similar to when he had his prior heart attack. He was given sublingual nitroglycerin as well as chewable aspirin. IV access was established. He stated that the nitroglycerin did not help and it made him "giddy." He states nitroglycerin usually does not help him. I therefore gave him fentanyl 50 mcg IV with Zofran 4 mg IV as his blood pressure did drop from the nitroglycerin. I did place an order for continuous cardiac monitoring. The monitor showed normal sinus rhythm at a rate of 72 bpm. I did order and personally review the patient's 12-lead EKG as described above. He has Q waves inferiorly which were present on his previous EKG from 2019. He has no acute ST elevations. I did order and personally reviewed the images of the patient's chest x-ray as described above. Chest x-ray is unremarkable. I did order and review the patient's blood work as noted in the electronic medical record. CBC demonstrates a mild anemia with a hemoglobin of 13.6. His white count is not elevated. Coagulation studies are normal. CMP is remarkable for sodium 135 and a bilirubin of 1.1. High-sensitivity troponin is 5.4. COVID screening is negative. I did reevaluate the patient again. He states that he feels much better. He no longer feels like an elephant sitting on his chest. He does still have some residual chest pain but he states the pain in his neck is gone. He was given additional fentanyl IV and I did repeat another twelve- lead EKG which showed no change per my interpretation. No signs of STEMI. I did order a second high-sensitivity troponin which is pending. I did recommend hospitalization. I did discuss case with the hospitalist and rn case mgr. Second high-sensitivity troponin came back negative. Impression & Plan Acute chest pain Discharge Plan Visit Data Chief Complaint: Chest Pain Stated Complaint: CHEST PAIN, SOB ED Provider: Luiza,Anatoly S. Discharge Problem: Acute chest pain Patient Disposition: Admitted As Inpatient Discharge Instructions Interventions: ED Discharge Assessment Last Done: 10/23/21 18:24
[2021-10-23 15:59] LABS: Albumin Globulin Ratio 1.4 (0.9-2); Albumin Level 4.3 gm/dl (3.4-5.0); BUN Creatinine Ratio 14.8 (10-20); Bilirubin,Total 1.1 mg/dl (0.2-1.0); Calcium 9.6 mg/dl (8.5-10.1); Creatinine Clr Calc Pharmacy 62.8 ml/min; Est GFR (African American) 59.5 ml/min; Est GFR (Non-African American) 51.4 ml/min; Potassium 3.7 mmol/L (3.5-5.1); Total Protein 7.3 gm/dl (6.0-8.3)
[2021-10-23] MEDS ORDERED: ONDANSETRON INJ 2 MG/ML 2 ML VIAL IV STA (15:59)
[2021-10-23] MEDS ORDERED: fentaNYL citrate 100 MCG/2 ML VIAL IV STA ×2 (15:59→16:49)
[2021-10-23 16:03] LABS: Troponin I High Sensitivity 5.4 pg/ml (0-20)
--- NOTE | 2021-10-23 16:09 | XRay Report ---
XR chest 1V portable CLINICAL HISTORY: Chest Pain. COMPARISON STUDY: 01/03/2020 TECHNIQUE: 1 view of the chest FINDINGS: Single frontal view of the chest demonstrates the cardiomediastinal silhouette to be within normal li mits. The lungs are clear of alveolar opacities. There is no evidence for pleural effusion. There is no evidence for vascular congestion. There is no acute osseous pathology. IMPRESSION: 1. No acute cardiopulmonary disease. ACT 112: Negative or not required by law. Electronically signed by: Zaheer Trejo M.D. 10/23/2021 4:07 PM
[2021-10-23] MEDS ORDERED: Heparin IV Adult Wt-Based Standard *NO* Bolus Protocol IV SCH (17:52)
--- NOTE | 2021-10-23 18:04 | Communication Note ---
Date of Service: October 23, 2021 History and physical exam performed by me. History notable for left-sided chest pain has been ongoing and intermittent for the past 2 weeks, worse today, radiates across chest and also the left arm. Had some dizziness earlier today when chest pain worsened with some gardening Pain has been on and off for the past 2 weeks, occurs at rest and with activity. Had dental procedure 6 weeks ago and had to hold Plavix for a week. Reports pain is similar to when he had heart attack in the past Physical exam, General: Well hydrated, obese, no acute distress Eyes: PERRL, conjunctivae normal, not pale, anicteric sclerae, EOM intact bilaterally ENMT: External ear and nose normal, oropharynx normal Respiratory: Normal respiratory effort, no respiratory distress, lungs clear to auscultation, no crackles and no wheezes Cardiovascular: Pulse is RRR. S1 S2 Chest (Breasts): Chest: No chest wall tenderness on palpation Gastrointestinal (Abdomen): Abdomen is not distended, soft, non-tender to palpation, no guarding, no palpable hepatosplenomegaly, normal bowel sounds Musculoskeletal: No cyanosis or clubbing, all extremities motor strength 5/5. No pedal edema Neurologic: Alert and oriented x 3, No focal weakness, sensation grossly intact Psychiatric: Alert and oriented x 3, euthymic affect Chest pain ?Unstable angina First trop is negative EKG similar to post cath EKG in 2019 2nd trop pending Got ASA loading No relief reported to nitro Got 100mcg of fentanyl with some improvement. Stated pain is increasing again slowly during evaluation Discussed with News Producer Dr Pino. Start heparin drip Follow up trop trend. Keep NPO Will follow up Card evaluation Agree with other plans as detailed by Caridad GARIBAY
[2021-10-23] MEDS ORDERED: HEPARIN 25000 UNIT/500 ML D5W IV ONE (18:19)
[2021-10-23] MEDS ORDERED: GLUCOSE 40% GEL 15 GM TUBE PO PRN (19:10)
[2021-10-23] MEDS ORDERED: ACETAMINOPHEN 325 MG TAB PO PRN (19:10)
[2021-10-23] MEDS ORDERED: CARBOHYDRATES FOR HYPOGLYCEMIA PO PRN (19:10)
[2021-10-23] MEDS ORDERED: GLUCAGON FOR INJ 1 MG VIAL SQ PRN (19:10)
[2021-10-23] MEDS ORDERED: ENOXAPARIN INJ 40 MG/0.4 ML SYR SQ SCH (19:10)
[2021-10-23] MEDS ORDERED: MoRPHine SULFATE 2 MG/ML CARP IV PRN (19:10)
[2021-10-23] MEDS ORDERED: DEXTROSE 50% 50 ML SYRINGE IV PRN (19:10)
[2021-10-23] MEDS ORDERED: GLUCOSE 10 TABS/TUBE PO PRN (19:10)
--- NOTE | 2021-10-23 19:27 | History & Physical Report ---
Date of Service October 23, 2021 Assessment & Plan (1) Chest pain: (2) CAD (coronary artery disease): Plan: Admit to telemetry Patient presenting from home with reports of intermittent left arm/shoulder discomfort and chest pain x 2 weeks with acute worsening of the pain today. Noted that patient had dental work about 6 weeks ago and held Plavix for 1 week. History of CAD: Status post PTCA and stenting of the proximal LAD January 2000. Acute ST elevation CT in August 2013, PCI with a ZULY to the proximal LAD with residual 60% stenosis of the circumflex noted. Presentation in December 2019 with unstable angina, status post successful PCI of distal RCA, PDA bifurcation with 2 drug-eluting stents In the ED, patient received SL nitro without improvement in discomfort. Then received IV fentanyl 50 mcg x 2 doses with improvement however discomfort started to worsen again during our exam. HS Trop 5.4 --> 5.0. EKG unchanged from comparison January 2021 Troponins reassuring however given significant cardiac history and reported history, will empirically start IV heparin Continue serial troponins Resting echo Continue beta-brenda. Patient noted to be statin intolerant, on Repatha therapy Cardiology consult, case discussed with Dr. Pino (3) HTN (hypertension): Plan: BP controlled, continue amlodipine, atenolol, lisinopril (4) Diabetes mellitus, type 2: Plan: Hgb A1c 6.4 08/2021 Hold metformin and utilize NovoLog per protocol while hospitalized (5) MARKO (obstructive sleep apnea): Plan: On nocturnal O2, patient is CPAP intolerant (6) Rheumatoid arthritis: Plan: On chronic prednisone and Rinvoq (7) DVT prophylaxis: Plan: On IV heparin Admission and Anticipated Discharge Date Admission Date: October 23, 2021 History of Present Illness Chief Complaint: Chest pain Primary Care Provider: Zev Lemus MD 76-year-old male with PMH CAD with prior stenting, DM type II, dyslipidemia (statin intolerant, on Repatha therapy), rheumatoid arthritis on chronic prednisone and Rinvoq, GERD, and other problems listed below who presents the ED for evaluation of chest pain. Patient reports that he started to develop intermittent left arm and shoulder pain about 2 weeks ago. Patient reports discomfort was similar to his prior heart attacks. Patient reports that this morning he was outside doing some light yard work when he again developed left arm and shoulder pain however it was much more severe than what it had been over the past 2 weeks. Patient reports that he went inside and put on his oxygen that he typically wears at night. He reports no improvement in the discomfort and then pain started to radiate across the left side of his chest and into his jaw. Patient then presented to the ED for further evaluation. Patient reports associated lightheadedness and dizziness however no syncopal event. Denies diaphoresis, nausea, or shortness of breath. No other recent illnesses, fevers, chills. Denies urinary symptoms. In the ED, patient received SL nitro without any improvement in discomfort. He then received IV fentanyl 50 mcg x 2 and pain reduced from 8/10 to 5/10. During our exam, patient reports some mild worsening of chest discomfort. HS troponin 5.4 --> 5.0. EKG x 2 unchanged from comparison 01/2021. Patient was also given full dose aspirin. Allergies Allergy/AdvReac Type Severity Reaction Status Date / Time Iodinated Contrast Media Allergy Intermediate HIVES Verified 10/23/21 17:15 shellfish derived Allergy Intermediate hives Verified 10/23/21 17:15 meperidine AdvReac Mild Nausea Verified 10/23/21 17:15 methotrexate AdvReac Mild Nausea Verified 10/23/21 17:15 oxycodone AdvReac Mild n/v Verified 10/23/21 17:15 Czadhsz-[id number]-CqF Reductase AdvReac Mild myalgias Verified 10/23/21 17:15 Inhibitor [Vmxplrk-Cex-Vof Reductase Inhibitor] Home Medications Medication Instructions Recorded Confirmed Type aspirin 81 mg tablet,delayed 81 mg PO QPM 02/28/18 10/23/21 History release atenolol 25 mg tablet 25 mg PO BID 02/28/18 10/23/21 History clopidogrel 75 mg tablet (Plavix) 75 mg PO QAM 02/28/18 10/23/21 History lisinopril 10 mg tablet 10 mg PO QPM 02/28/18 10/23/21 History nitroglycerin 0.4 mg sublingual 0.4 mg SUBLINGUAL UD PRN 02/28/18 10/23/21 History tablet (Nitrostat) sennosides 8.6 mg-docusate sodium 1 tab PO DAILY PRN #10 tab 03/03/18 10/23/21 Rx 50 mg tablet (Senokot-S) metformin 500 mg tablet,extended 500 mg PO BID 04/14/18 10/23/21 History release 24 hr amlodipine 5 mg tablet (Norvasc) 5 mg PO DAILY 01/03/20 10/23/21 History prednisone 5 mg tablet 5 mg PO DAILY 01/03/20 10/23/21 History evolocumab 140 mg/mL subcutaneous 140 mg SUBCUT .[id number] 10/23/21 10/23/21 History pen injector (Repatha SureClick) gabapentin 300 mg capsule 300 mg PO HS 10/23/21 10/23/21 History semaglutide (Ozempic) 0.5 mg SUBCUT WK 10/23/21 10/23/21 History sildenafil (pulm.hypertension) 20 0 mg PO DIRECTED 10/23/21 10/23/21 History mg tablet terazosin 2 mg capsule 2 mg PO HS 10/23/21 10/23/21 History upadacitinib 15 mg tablet,extended 15 mg PO DAILY 10/23/21 10/23/21 History release 24 hr (Rinvoq) Past Med/Surg History Medical History CAD (coronary artery disease) Status post PTCA and stenting of the proximal LAD January 2000. Acute ST elevation CT in August 2013, PCI with a ZULY to the proximal LAD with residual 60% stenosis of the circumflex noted. Presentation in December 2019 with unstable angina, status post successful PCI of distal RCA, PDA bifurcation with 2 drug-eluting stents Diabetes mellitus, type 2 History of left heart catheterization (LHC) "02/01/00 PTCA and Stent of 90% prox LAD lesion. 50%left circ untreated. 2013 LHC DESx2 to LAD " HTN (hypertension) Hx of pancreatitis 02/2018 [facility] Myocardial Infarction 2013 OR 2015-NO RECENT CHEST PAIN PER SPOUSE On anticoagulant therapy DAILY PLAVIX SINCE 1999 On home oxygen therapy HS ONLY MARKO (obstructive sleep apnea) Rheumatoid arthritis Sleep apnea CAN'T TOLERATE CPAP -USES OXYGEN 2L/MIN NC Surgical History History of cardiac cath 2013/2014-1 STENT[facility] History of cataract surgery R/L History of open reduction and internal fixation (ORIF) procedure LEFT ANKLE History of total knee replacement RIGHT Family History Brother Heart disorder Sister Heart disorder Social History Smoking Status: Former smoker Second Hand Exposure: No; Do You Dip or Chew Tobacco: No; Tobacco Cessation Education Requested by Patient: No Hx Alcohol Use: No Hx Substance Use: No Preferred Language: [place] Communication Ability: Effective 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 Taylor's addendum for physical exam Results & Data Results & Data ([facility]) Vital Signs (Past 12 Hours) Vital Signs Temp Pulse Pulse Resp BP BP Pulse Ox 10/23/21 18:54 36.8 C 66 16 136/79 99 10/23/21 18:24 70 19 130/80 98 10/23/21 18:00 62 19 97 10/23/21 17:31 66 20 140/96 85 L 10/23/21 17:30 63 15 100 10/23/21 17:00 65 16 121/72 100 10/23/21 16:30 68 17 111/64 91 10/23/21 16:00 76 17 107/70 95 10/23/21 15:58 78 19 127/74 96 10/23/21 15:49 100 10/23/21 15:13 36.5 C 72 18 152/83 H 95 Laboratory Results Short CBC 10/23/21 Range/Units 15:10 WBC 8.99 (4.8-10.8) K/uL Hgb 13.6 L (14.0-18.0) g/dL Hct 40.4 L (42-52) % Plt Count 322 (130-400) K/uL BMP 10/23/21 15:10 Sodium 135 L Potassium 3.7 Chloride 100 Carbon Dioxide 27 BUN 20 Creatinine 1.35 Glucose 96 Calcium 9.6 Liver Function 10/23/21 Range/Units 15:10 Total Bilirubin 1.1 H (0.2-1.0) mg/dl AST 38 (13-39) U/L ALT 36 (7-52) U/L Alkaline Phosphatase 61 (34-104) U/L Albumin 4.3 (3.4-5.0) gm/dl Diagnostic Findings Chest X-Ray 10/23/21 15:19 XR chest 1V portable CLINICAL HISTORY: Chest Pain. COMPARISON STUDY: 01/03/2020 TECHNIQUE: 1 view of the chest FINDINGS: Single frontal view of the chest demonstrates the cardiomediastinal silhouette to be within normal limits. The lungs are clear of alveolar opacities. There is no evidence for pleural effusion. There is no evidence for vascular congestion. There is no acute osseous pathology. IMPRESSION: 1. No acute cardiopulmonary disease. ACT 112: Negative or not required by law. Electronically signed by: Zaheer Trejo M.D. 10/23/2021 4:07 PM Code Status & VTE Plan Code Status Patient is a full code as per my discussion with him. Patient states that his , Jessica, would be decision-maker in the event he were to be able to. VTE Prophylaxis Plan VTE Prophylaxis will be ordered: Yes Supervising Physician Co-Signing Physician Notes Date of Service: October 23, 2021 History and physical exam performed by me. History notable for left-sided chest pain has been ongoing and intermittent for the past 2 weeks, worse today, radiates across chest and also the left arm. Had some dizziness earlier today when chest pain worsened with some gardening Pain has been on and off for the past 2 weeks, occurs at rest and with activity. Had dental procedure 6 weeks ago and had to hold Plavix for a week. Reports pain is similar to when he had heart attack in the past Physical exam, General: Well hydrated, obese, no acute distress Eyes: PERRL, conjunctivae normal, not pale, anicteric sclerae, EOM intact bilaterally ENMT: External ear and nose normal, oropharynx normal Respiratory: Normal respiratory effort, no respiratory distress, lungs clear to auscultation, no crackles and no wheezes Cardiovascular: Pulse is RRR. S1 S2 Chest (Breasts): Chest: No chest wall tenderness on palpation Gastrointestinal (Abdomen): Abdomen is not distended, soft, non-tender to palpation, no guarding, no palpable hepatosplenomegaly, normal bowel sounds Musculoskeletal: No cyanosis or clubbing, all extremities motor strength 5/5. No pedal edema Neurologic: Alert and oriented x 3, No focal weakness, sensation grossly intact Psychiatric: Alert and oriented x 3, euthymic affect Chest pain ?Unstable angina First trop is negative EKG similar to post cath EKG in 2020 Got ASA loading No relief reported to nitro Got 100mcg of fentanyl with some improvement. Stated pain is increasing again slowly during evaluation Discussed with Tube Test Technician Dr Pino. Start heparin drip Follow up trop trend. Keep NPO Will follow up Card evaluation Agree with other plans as detailed by Caridad GARIBAY (1) Chest pain Chest pain type: unspecified Qualified Code(s): R07.9 - Chest pain, unspecified
[2021-10-23] MEDS: HEPARIN SODIUM/DEXTROSE 25,000 UNITS/500 ML BAG IV SCH (20:00)
[2021-10-23] MEDS: lisinopril 10 MG TAB PO SCH (20:47)
[2021-10-23] MEDS: ATENOLOL 25 MG TABLET PO SCH (20:48)
[2021-10-23] MEDS: GABAPENTIN 300 MG CAP PO SCH (20:49)
[2021-10-23] MEDS: INSULIN ASPART PER UNIT SC SCH (20:49)
[2021-10-23] MEDS: TERAZOSIN HCL 1 MG CAP PO SCH (20:49)
[2021-10-23] MEDS: MoRPHine SULFATE 4 MG/ML 1 ML CARP\\VIAL IV PRN (21:59)
[2021-10-24] MEDS ORDERED: MoRPHine SULFATE 4 MG/ML 1 ML CARP\\VIAL IV STA (01:39)
[2021-10-24 04:08] LABS: Hematocrit (blood only) 38.3 % (42-52); Hemoglobin 12.8 g/dL (14.0-18.0); Mean Corpuscular Hemoglobin 30.5 pg (25-34); Mean Corpuscular Hgb Conc 33.4 g/dL (32-36); Mean Corpuscular Volume 91.2 fL (80-100); Mean Platelet Volume 9.6 fL (7.4-10.4); Platelet Count 305 K/uL (130-400); RDW Standard Deviation 46.6 fL (36.4-46.3); White Blood Count 6.13 K/uL (4.8-10.8)
[2021-10-24 04:30] LABS: Calcium 9.1 mg/dl (8.5-10.1); Creatinine Clr Calc Pharmacy 75.9 ml/min; Potassium 3.9 mmol/L (3.5-5.1)
[2021-10-24 04:36] LABS: Partial Thromboplastin Ratio 2.4
[2021-10-24 04:44] LABS: Partial Thromboplastin Time 65.4 Seconds (21.0-31.0)
--- NOTE | 2021-10-24 06:42 | Electrocardiogram Report ---
Test Reason : Blood Pressure : / mmHG Vent. Rate : 073 BPM Atrial Rate : 073 BPM P-R Int : 158 ms QRS Dur : 084 ms QT Int : 388 ms P-R-T Axes : 024 016 060 degrees QTc Int : 427 ms Normal sinus rhythm Inferior infarct (cited on or before 03-JAN-2020) Abnormal ECG When compared with ECG of 04-JAN-2020 06:47, No significant change was found Confirmed by Mike Moreno ([id number]) on 10/24/2021 6:42:04 AM Referred By: Confirmed By:Mike Moreno
[2021-10-24] MEDS: MoRPHine SULFATE 4 MG/ML 1 ML CARP\\VIAL IV PRN (06:43)
[2021-10-24] MEDS: INSULIN ASPART PER UNIT SC SCH ×4 (08:05→20:20)
[2021-10-24] MEDS ORDERED: amLODIPine BESYLATE 5 MG TAB PO SCH (09:00)
[2021-10-24] MEDS: ATENOLOL 25 MG TABLET PO SCH ×2 (09:23→20:16)
--- NOTE | 2021-10-24 09:32 | Cardiology Consultation ---
Date of Consultation October 24, 2021 Assessment & Plan (1) Chest pain: (2) CAD (coronary artery disease): (3) Diabetes mellitus, type 2: (4) Rheumatoid arthritis: I think the patient is having atypical chest pain and with multiple EKGs and negative high-sensitivity troponin I think this is unlikely to be due to unstable angina. His echocardiogram with a enlarged right ventricular on preliminary review concerning for a pulmonary emboli and I would recommend a CT with contrast. Patient does have a dye allergy and would have to be prepped prior to proceeding. For now I would continue the IV heparin and dual antiplatelet therapy. If the CT is completely negative then consideration can be given for possible cervical disc radiculopathy or muscular skeletal pain which can be evaluated and treated appropriately. We will follow him with you during his hospital stay. History of Present Illness Attending Physician: Nereida Taylor MD History of Present Illness This is a 76-year-old male gentleman who is very hard of hearing. He has a past medical history as outlined below. The patient states that he has left scapular discomfort with radiation into the left arm and some paresthesias along the hand, thumb and first finger. Pain has been continuous since yesterday. He has been given some fentanyl with some improvement in the discomfort. He denies shortness of breath or orthopnea. On telemetry he has been in a normal rhythm. EKGs have been nonspecific and have not changed despite multiple studies. His cardiac high-sensitivity troponin has been normal despite having prolonged pain. His echocardiogram, preliminary reading, is an enlarged right heart which is concerning for pulmonary hypertension and possible pulmonary emboli. Past medical history: 1.Atherosclerotic coronary disease 1.Status post PTCA and stenting of the proximal LAD January 2000. 2.Acute ST elevation NC in August 2013, PCI with a ZULY to the proximal LAD with residual 60% stenosis of the circumflex noted. 3.Presentation in December 2019 with unstable angina, status post successful PCI of distal RCA, PDA bifurcation with 2 drug-eluting stents 2.Preserved LV systolic function 3.Longstanding and labile hypertension, hypertensive heart disease 4.Aortic stenosis 5.Obstructive sleep apnea and nocturnal hypoxemia, intolerant to CPAP, utilizing supplemental oxygen at nighttime 6.Dyslipidemia. Patient with well documented intolerance to multiple prior statin trials as well as ezetimibe. 7.Type 2 diabetes mellitus 8.Diabetic neuropathy 9.Rheumatoid arthritis 10.Gastroesophageal reflux disease Allergies Allergy/AdvReac Type Severity Reaction Status Date / Time Iodinated Contrast Media Allergy Intermediate HIVES Verified 10/23/21 17:15 shellfish derived Allergy Intermediate hives Verified 10/23/21 17:15 meperidine AdvReac Mild Nausea Verified 10/23/21 17:15 methotrexate AdvReac Mild Nausea Verified 10/23/21 17:15 oxycodone AdvReac Mild n/v Verified 10/23/21 17:15 [id number] Reductase AdvReac Mild myalgias Verified 10/23/21 17:15 Inhibitor [Vgcqval-Jrq-Axa Reductase Inhibitor] Home Medications Medication Instructions Recorded Confirmed Type aspirin 81 mg tablet,delayed 81 mg PO QPM 02/28/18 10/23/21 History release atenolol 25 mg tablet 25 mg PO BID 02/28/18 10/23/21 History clopidogrel 75 mg tablet (Plavix) 75 mg PO QAM 02/28/18 10/23/21 History lisinopril 10 mg tablet 10 mg PO QPM 02/28/18 10/23/21 History nitroglycerin 0.4 mg sublingual 0.4 mg SUBLINGUAL UD PRN 02/28/18 10/23/21 History tablet (Nitrostat) sennosides 8.6 mg-docusate sodium 1 tab PO DAILY PRN #10 tab 03/03/18 10/23/21 Rx 50 mg tablet (Senokot-S) metformin 500 mg tablet,extended 500 mg PO BID 04/14/18 10/23/21 History release 24 hr amlodipine 5 mg tablet (Norvasc) 5 mg PO DAILY 01/03/20 10/23/21 History prednisone 5 mg tablet 5 mg PO DAILY 01/03/20 10/23/21 History evolocumab 140 mg/mL subcutaneous 140 mg SUBCUT .[id number] 10/23/21 10/23/21 History pen injector (Repatha SureClick) gabapentin 300 mg capsule 300 mg PO HS 10/23/21 10/23/21 History semaglutide (Ozempic) 0.5 mg SUBCUT WK 10/23/21 10/23/21 History sildenafil (pulm.hypertension) 20 0 mg PO DIRECTED 10/23/21 10/23/21 History mg tablet terazosin 2 mg capsule 2 mg PO HS 10/23/21 10/23/21 History upadacitinib 15 mg tablet,extended 15 mg PO DAILY 10/23/21 10/23/21 History release 24 hr (Rinvoq) Patient History Medical History CAD (coronary artery disease) Status post PTCA and stenting of the proximal LAD January 2000. Acute ST elevation NC in August 2013, PCI with a ZULY to the proximal LAD with residual 60% stenosis of the circumflex noted. Presentation in December 2019 with unstable angina, status post successful PCI of distal RCA, PDA bifurcation with 2 drug-eluting stents Diabetes mellitus, type 2 History of left heart catheterization (LHC) "02/01/00 PTCA and Stent of 90% prox LAD lesion. 50%left circ untreated. 2013 LHC DESx2 to LAD " HTN (hypertension) Hx of pancreatitis 02/2018 [facility] Myocardial Infarction 2013 OR 2014-NO RECENT CHEST PAIN PER SPOUSE On anticoagulant therapy DAILY PLAVIX SINCE 1999 On home oxygen therapy HS ONLY MARKO (obstructive sleep apnea) Rheumatoid arthritis Sleep apnea CAN'T TOLERATE CPAP -USES OXYGEN 2L/MIN NC Surgical History History of cardiac cath -1 STENT-[facility] History of cataract surgery R/L History of open reduction and internal fixation (ORIF) procedure LEFT ANKLE History of total knee replacement RIGHT Family History Brother Heart disorder Sister Heart disorder Social History Smoking Status: Former smoker Second Hand Exposure: No; Do You Dip or Chew Tobacco: No; Tobacco Cessation Education Requested by Patient: No Hx Alcohol Use: No Hx Substance Use: No Preferred Language: Faroese Communication Ability: Effective Golf Cart Attendant Required: No Beliefs That Will Affect Care: None Current Living Situation: Spouse Other Information That Helps Us Care for You: No Feels Safe at Home: Yes Safety Concerns: Feels Safe At This Time Assistive Devices: Denture - Upper and Oxygen - at Night Assistive Devices Comment: Hearing aids at home Review of Systems Review of Systems: Review of Systems: See HPI for pertinent positives. All other 10 point review of systems are negative. Physical Exam Physical Exam: General: no acute distress and stated age Head: normocephalic, no masses, lesions, tenderness or abnormalities Eyes: conjunctiva are pink and non-injected, sclera clear Neck: supple, no adenopathy, no bruits, normal jugular venous pulse, no hepatojugular reflux Chest: normal shape and normal respiratory effort Lungs: clear to auscultation and percussion Cardiac Exam: - regular rate & rhythm, no murmurs gallops or rubs - normal S1, normal S2 Pulses: 2(+) throughout Abdomen: abdomen soft, non-tender, no abnormal masses and no hepatosplenomegaly Musculoskeletal: no gait disturbance, no joint inflammation, no deforming arthritis Extremities: no edema and no cyanosis Neuro: grossly normal exam Results & Data ([facility]) Vital Signs (Past 12 Hours) Vital Signs Temp Pulse Pulse Pulse Resp BP BP 10/24/21 08:10 99/67 L 10/24/21 08:09 88/58 L 10/24/21 07:26 36.6 C 70 18 94/64 L 10/24/21 07:16 71 10/24/21 06:47 76 111/72 10/24/21 03:06 36.4 C L 76 18 108/70 10/23/21 23:44 36.9 C 69 69 H 151/84 H 116/73 10/23/21 22:50 71 10/23/21 22:08 73 18 137/86 10/23/21 22:03 80 20 153/89 H Pulse Ox 10/24/21 08:10 10/24/21 08:09 10/24/21 07:26 95 10/24/21 07:16 10/24/21 06:47 10/24/21 03:06 96 10/23/21 23:44 97 10/23/21 22:50 10/23/21 22:08 97 10/23/21 22:03 97 Laboratory Results Laboratory Results - last 24 hr 10/23/21 10/23/21 10/23/21 15:10 15:10 15:10 WBC 8.99 RBC 4.46 L Hgb 13.6 L Hct 40.4 L MCV 90.6 MCH 30.5 MCHC 33.7 RDW Std Deviation 45.5 RDW Coeff of Jay Jay 13.8 Plt Count 322 MPV 9.4 Immature Gran % (Auto) 0.2 Neut % (Auto) 74.2 Lymph % (Auto) 11.9 [place] % (Auto) 11.5 Eos % (Auto) 2.0 Baso % (Auto) 0.2 Neut # (Auto) 6.67 H Lymph # (Auto) 1.07 L [place] # (Auto) 1.03 H Eos # (Auto) 0.18 Baso # (Auto) 0.02 Immature Gran # (Auto) 0.02 PT 11.1 INR 1.0 APTT 25.4 PTT Ratio 0.9 Sodium 135 L Potassium 3.7 Chloride 100 Carbon Dioxide 27 Anion Gap 8 BUN 20 Creatinine 1.35 Est Cr Clr Drug Dosing 62.8 Est GFR ( Amer) 59.5 Est GFR (Non-Af Amer) 51.4 BUN/Creatinine Ratio 14.8 Glucose 96 POC Glucose Calcium 9.6 Total Bilirubin 1.1 H AST 38 ALT 36 Alkaline Phosphatase 61 Troponin I High Sens 5.4 Total Protein 7.3 Albumin 4.3 Globulin 3.0 Albumin/Globulin Ratio 1.4 Hepatitis C Ab (EIA) Hep C Ab Signal/Cutoff SARS-CoV-2, RNA, NAAT 10/23/21 10/23/21 10/23/21 15:50 17:26 20:34 WBC RBC Hgb Hct MCV MCH MCHC RDW Std Deviation RDW Coeff of Jay Jay Plt Count MPV Immature Gran % (Auto) Neut % (Auto) Lymph % (Auto) [place] % (Auto) Eos % (Auto) Baso % (Auto) Neut # (Auto) Lymph # (Auto) [place] # (Auto) Eos # (Auto) Baso # (Auto) Immature Gran # (Auto) PT INR APTT PTT Ratio Sodium Potassium Chloride Carbon Dioxide Anion Gap BUN Creatinine Est Cr Clr Drug Dosing Est GFR ( Amer) Est GFR (Non-Af Amer) BUN/Creatinine Ratio Glucose POC Glucose 90 Calcium Total Bilirubin AST ALT Alkaline Phosphatase Troponin I High Sens 5.0 Total Protein Albumin Globulin Albumin/Globulin Ratio Hepatitis C Ab (EIA) Hep C Ab Signal/Cutoff SARS-CoV-2, RNA, NAAT NEGATIVE 10/23/21 10/24/21 10/24/21 21:15 03:29 03:29 WBC RBC Hgb Hct MCV MCH MCHC RDW Std Deviation RDW Coeff of Jay Jay Plt Count MPV Immature Gran % (Auto) Neut % (Auto) Lymph % (Auto) [place] % (Auto) Eos % (Auto) Baso % (Auto) Neut # (Auto) Lymph # (Auto) [place] # (Auto) Eos # (Auto) Baso # (Auto) Immature Gran # (Auto) PT INR APTT PTT Ratio Sodium Potassium Chloride Carbon Dioxide Anion Gap BUN Creatinine Est Cr Clr Drug Dosing Est GFR ( Amer) Est GFR (Non-Af Amer) BUN/Creatinine Ratio Glucose POC Glucose Calcium Total Bilirubin AST ALT Alkaline Phosphatase Troponin I High Sens 5.5 5.1 Total Protein Albumin Globulin Albumin/Globulin Ratio Hepatitis C Ab (EIA) Pending Hep C Ab Signal/Cutoff Pending SARS-CoV-2, RNA, NAAT 10/24/21 10/24/21 10/24/21 03:29 03:29 03:29 WBC 6.13 RBC 4.20 L Hgb 12.8 L Hct 38.3 L MCV 91.2 MCH 30.5 MCHC 33.4 RDW Std Deviation 46.6 H RDW Coeff of Jay Jay 14.0 Plt Count 305 MPV 9.6 Immature Gran % (Auto) Neut % (Auto) Lymph % (Auto) [place] % (Auto) Eos % (Auto) Baso % (Auto) Neut # (Auto) Lymph # (Auto) [place] # (Auto) Eos # (Auto) Baso # (Auto) Immature Gran # (Auto) PT INR APTT 65.4 H* PTT Ratio 2.4 Sodium 137 Potassium 3.9 Chloride 102 Carbon Dioxide 27 Anion Gap 8 BUN 16 Creatinine 1.14 Est Cr Clr Drug Dosing 75.9 Est GFR ( Amer) 73.0 Est GFR (Non-Af Amer) 63.0 BUN/Creatinine Ratio 14.0 Glucose 96 POC Glucose Calcium 9.1 Total Bilirubin AST ALT Alkaline Phosphatase Troponin I High Sens Total Protein Albumin Globulin Albumin/Globulin Ratio Hepatitis C Ab (EIA) Hep C Ab Signal/Cutoff SARS-CoV-2, RNA, NAAT 10/24/21 07:29 WBC RBC Hgb Hct MCV MCH MCHC RDW Std Deviation RDW Coeff of Jay Jay Plt Count MPV Immature Gran % (Auto) Neut % (Auto) Lymph % (Auto) [place] % (Auto) Eos % (Auto) Baso % (Auto) Neut # (Auto) Lymph # (Auto) [place] # (Auto) Eos # (Auto) Baso # (Auto) Immature Gran # (Auto) PT INR APTT PTT Ratio Sodium Potassium Chloride Carbon Dioxide Anion Gap BUN Creatinine Est Cr Clr Drug Dosing Est GFR ( Amer) Est GFR (Non-Af Amer) BUN/Creatinine Ratio Glucose POC Glucose 117 H Calcium Total Bilirubin AST ALT Alkaline Phosphatase Troponin I High Sens Total Protein Albumin Globulin Albumin/Globulin Ratio Hepatitis C Ab (EIA) Hep C Ab Signal/Cutoff SARS-CoV-2, RNA, NAAT Medications Administered Current Inpatient Medications Acetaminophen (Acetaminophen 325 Mg Tab) 650 mg PO Q4H PRN PRN Reason: Pain or Fever Stop: 11/22/21 19:09 Amlodipine Besylate (Amlodipine Besylate 5 Mg Tab) 5 mg PO DAILY [facility] Stop: 11/23/21 08:59 Aspirin (Aspirin 81 Mg Ectab) 81 mg PO DAILY [facility] Stop: 11/23/21 08:59 Last Admin: 10/24/21 09:41 Dose: 81 mg Documented by: Atenolol (Atenolol 25 Mg Tablet) 25 mg PO BID [facility] Stop: 11/22/21 20:59 Last Admin: 10/24/21 09:23 Dose: Not Given Documented by: Clopidogrel Bisulfate (Clopidogrel Bisulfate 75 Mg Tab) 75 mg PO QAM [facility] Stop: 11/23/21 08:59 Last Admin: 10/24/21 09:41 Dose: 75 mg Documented by: Dextrose (Dextrose 50% 50 Ml Syringe) 25 - 50 ml IV UD PRN; Protocol PRN Reason: Hypoglycemia Protocol Stop: 11/22/21 19:09 Gabapentin (Gabapentin 300 Mg Cap) 300 mg PO HS [facility] Stop: 11/22/21 20:59 Last Admin: 10/23/21 20:49 Dose: 300 mg Documented by: Glucagon (Glucagon For Inj 1 Mg Vial) 1 mg SQ UD PRN; Protocol PRN Reason: Hypoglycemia Protocol Stop: 11/22/21 19:09 Glucose (Glucose 10 Tabs/Tube) 4 - 8 tabs PO UD PRN; Protocol PRN Reason: Hypoglycemia Protocol Stop: 11/22/21 19:09 Glucose (Glucose 40% Gel 15 Gm Tube) 15 - 30 gm PO UD PRN; Protocol PRN Reason: Hypoglycemia Protocol Stop: 11/22/21 19:09 Heparin Sodium/Dextrose (Heparin Sodium/Dextrose) 25,000 units in 500 mls @ 33 mls/hr IV .[id number] JACE; Protocol Stop: 11/22/21 18:14 Last Titration: 10/24/21 06:57 Dose: 1,650 units/hr, 33 mls/hr Documented by: Insulin Aspart (Insulin Aspart Per Unit) 0 units SC ACHS [facility] Stop: 11/22/21 20:59 Last Admin: 10/24/21 08:05 Dose: Not Given Documented by: Lisinopril (Lisinopril 10 Mg Tab) 10 mg PO QPM [facility] Stop: 11/22/21 20:59 Last Admin: 10/23/21 20:47 Dose: 10 mg Documented by: Miscellaneous (Carbohydrates For Hypoglycemia ) 15 - 30 gm PO UD PRN PRN Reason: Hypoglycemia Protocol Stop: 11/22/21 19:09 Miscellaneous (Order Awaiting Action [Upadacitinib [Rinvoq] 15 Mg Tablet Extended Release 24 Hr]) 1 ea N/A QS [facility] Stop: 11/23/21 00:00 Last Admin: 10/24/21 07:27 Dose: Not Given Documented by: Morphine Sulfate (Morphine Sulfate 2 Mg/Ml Carp) 2 mg IV Q6H PRN PRN Reason: Pain (1,2,3,4,5) & Pre PT Stop: 11/06/21 19:09 Morphine Sulfate (Morphine Sulfate 4 Mg/Ml 1 Ml Carp\\Vial) 4 mg IV Q6H PRN PRN Reason: Pain (6,7,8,9,10) Stop: 11/06/21 19:09 Last Admin: 10/24/21 06:43 Dose: 4 mg Documented by: Nitroglycerin (Nitroglycerin Sl 0.4 Mg/Tab Tab) 0.4 mg SL UD PRN PRN Reason: Chest Pain Stop: 11/22/21 19:09 Prednisone (Prednisone 5 Mg Tab) 5 mg PO DAILY [facility] Stop: 11/23/21 08:59 Last Admin: 10/24/21 09:41 Dose: 5 mg Documented by: Terazosin HCl (Terazosin Hcl 1 Mg Cap) 2 mg PO HS [facility] Stop: 11/22/21 20:59 Last Admin: 10/23/21 20:49 Dose: 2 mg Documented by: (1) Chest pain Chest pain type: unspecified Qualified Code(s): R07.9 - Chest pain, unspecified
[2021-10-24] MEDS: CLOPIDOGREL BISULFATE 75 MG TAB PO SCH (09:41)
[2021-10-24] MEDS: predniSONE 5 MG TAB PO SCH (09:41)
[2021-10-24] MEDS: ASPIRIN 81 MG ECTAB PO SCH (09:41)
[2021-10-24] MEDS ORDERED: diphenhydrAMINE 50 MG/ML VIAL IV SCH (10:00)
[2021-10-24 10:25] LABS: Partial Thromboplastin Ratio 2.9
[2021-10-24] MEDS: HEPARIN SODIUM/DEXTROSE 25,000 UNITS/500 ML BAG IV SCH (10:33)
[2021-10-24] MEDS: methylPREDNISolone 40 MG in SYRINGE 0 ML IV SCH ×2 (10:33→10:49)
--- NOTE | 2021-10-24 10:33 | Hospitalist Progress Note ---
Date of Service October 24, 2021 Assessment & Plan (1) Chest pain: (2) CAD (coronary artery disease): Plan: Patient presented from home with reports of intermittent left arm/shoulder discomfort and chest pain x 2 weeks with acute worsening of the pain on the day of presentation. Noted that patient had dental work about 6 weeks ago and held Plavix for 1 week. History of CAD: Status post PTCA and stenting of the proximal LAD January 2000. Acute ST elevation OR in August 2013, PCI with a ZULY to the proximal LAD with residual 60% stenosis of the circumflex noted. Presentation in December 2019 with unstable angina, status post successful PCI of distal RCA, PDA bifurcation with 2 drug-eluting stents In the ED, patient received SL nitro without improvement in discomfort. Then received IV fentanyl 50 mcg x 2 doses with improvement however discomfort started to worsen again during our exam. HS Trop 5.4 -> 5.0->5.5->5.1. EKG unchanged from comparison January 2021 Troponin trend was negative but due to persistent pain and concern for unstable angina, was started on heparin drip Get TTE Cardiology on board CT PE was negative for PE. Some atelectasis noted Discussed with Harvester Operator. He has low suspicion for ACS/unstable angina at this time Recommended continue DAPT, Stop heparin drip, Pain control and monitor Patient noted to be statin intolerant, on Repatha therapy (3) HTN (hypertension): Plan: Hypotensive today. May be related to morphine Hold antihypertensives for now (4) Diabetes mellitus, type 2: Plan: Hgb A1c 6.4 08/2021 Hold metformin and utilize NovoLog per protocol while hospitalized (5) MARKO (obstructive sleep apnea): Plan: On nocturnal O2, patient is CPAP intolerant (6) Rheumatoid arthritis: Plan: On chronic prednisone and Rinvoq (7) DVT prophylaxis: Plan: Lovenox sq Admission and Anticipated Discharge Date Admission Date: October 23, 2021 Subjective Patient seen and examined. Continues to reports left-sided chest pain involving the left and pain in the back around the scapula, stabbing pain. Has required 3 doses of morphine overnight. Denies any cough, shortness of breath Denies any headache, dizziness Denies fevers, chills, nausea, vomiting, abdominal pain. Physical Exam Constitutional: + well hydrated and + obese; no acute distress Eyes: PERRL, conjunctivae normal, anicteric sclerae ENMT: external ear and nose normal, oropharynx normal Hearing deficits Respiratory: normal respiratory effort, lungs clear to auscultation Cardiovascular: Rate/Rhythm: regular rate and regular rhythm S1-S2 Gastrointestinal (Abdomen): normal bowel sounds, soft, nontender, no hepatosplenomegaly Musculoskeletal: no cyanosis or clubbing, extremities motor strength 5/5 No pedal edema Neurologic: PERRL, EOMI, accommodation nl, no face palsy, no dysarthria Psychiatric: A+Ox3, euthymic affect Results & Data Results & Data ([facility]) Vital Signs (Past 12 Hours) Vital Signs Temp Pulse Pulse Resp BP BP Pulse Ox 10/24/21 08:10 99/67 L 10/24/21 08:09 88/58 L 10/24/21 07:26 36.6 C 70 18 94/64 L 95 10/24/21 07:16 71 10/24/21 06:47 76 111/72 10/24/21 03:06 36.4 C L 76 18 108/70 96 10/23/21 23:44 36.9 C 69 69 H 151/84 H 116/73 97 10/23/21 22:50 71 Laboratory Results Abnormal lab results 10/23/21 10/23/21 10/24/21 Range/Units 15:10 15:10 03:29 RBC 4.46 L 4.20 L (4.7-6.1) M/uL Hgb 13.6 L 12.8 L (14.0-18.0) g/dL Hct 40.4 L 38.3 L (42-52) % RDW Std Deviation 46.6 H (36.4-46.3) fL Neut # (Auto) 6.67 H (1.4-6.5) K/uL Lymph # (Auto) 1.07 L (1.2-3.4) K/uL Nash # (Auto) 1.03 H (0.11-0.59) K/uL APTT (21.0-31.0) Seconds Sodium 135 L (136-145) mmol/L POC Glucose (70-99) mg/dl Total Bilirubin 1.1 H (0.2-1.0) mg/dl 10/24/21 10/24/21 10/24/21 Range/Units 03:29 07:29 09:45 RBC (4.7-6.1) M/uL Hgb (14.0-18.0) g/dL Hct (42-52) % RDW Std Deviation (36.4-46.3) fL Neut # (Auto) (1.4-6.5) K/uL Lymph # (Auto) (1.2-3.4) K/uL Nash # (Auto) (0.11-0.59) K/uL APTT 65.4 H* 80.8 H* (21.0-31.0) Seconds Sodium (136-145) mmol/L POC Glucose 117 H (70-99) mg/dl Total Bilirubin (0.2-1.0) mg/dl (1) Chest pain Chest pain type: unspecified Qualified Code(s): R07.9 - Chest pain, unspecified
[2021-10-24 10:36] LABS: Partial Thromboplastin Time 80.8 Seconds (21.0-31.0)
--- NOTE | 2021-10-24 10:48 | Electrocardiogram Report ---
Test Reason : Blood Pressure : / mmHG Vent. Rate : 068 BPM Atrial Rate : 068 BPM P-R Int : 158 ms QRS Dur : 082 ms QT Int : 410 ms P-R-T Axes : 018 017 054 degrees QTc Int : 435 ms Normal sinus rhythm possible Inferior infarct , age undetermined Abnormal ECG When compared with ECG of 23-OCT-2021 16:53, (unconfirmed) No significant change was found Confirmed by Maicol Medina ([id number]) on 10/24/2021 10:48:02 AM Referred By: REFERRED SELF Confirmed By:Andrea Medina
--- NOTE | 2021-10-24 10:50 | Electrocardiogram Report ---
Test Reason : Blood Pressure : / mmHG Vent. Rate : 061 BPM Atrial Rate : 061 BPM P-R Int : 164 ms QRS Dur : 084 ms QT Int : 420 ms P-R-T Axes : 090 027 064 degrees QTc Int : 422 ms Normal sinus rhythm possible old inferior Mi When compared with ECG of 23-OCT-2021 15:13, (unconfirmed) No significant change was found Confirmed by Maicol Medina ([id number]) on 10/24/2021 10:50:37 AM Referred By: REFERRED SELF Confirmed By:Andrea Medina
[2021-10-24] MEDS ORDERED: OPTIRAY 320 125ml IV ONE (11:14)
--- NOTE | 2021-10-24 11:48 | CT Scan Report ---
CT angio chest PE protocol CLINICAL HISTORY: PE. Rule out PE TECHNIQUE: Multidetector row helical CT of the chest was performed with angiographic protocol. Lund l and sagittal reformations were obtained. Coronal and sagittal MIPS were obtained from the axial marcello a set and were submitted for review. Automated dose lowering techniques and/or adjustment according to patient size were utilized for this exam. CT DOSE: 1055.17 mGy.cm Comparison: None available at the time of this dictation. FINDINGS: Lungs and pleura: Atelectasis versus scarring is seen in the dependent portions of the lungs. Heart and pericardium: Heart size is normal. No pericardial effusion. Vessels: No evidence of pulmonary embolism. Mediastinum and brit: Mediastinal nodes are seen measuring up to 13 mm in diameter in the right lower paratracheal station. Chest wall and lower neck: Unremarkable. Abdomen: Unremarkable. Bones: Degenerative changes in the thoracic spine. IMPRESSION: 1. No evidence of pulmonary embolus. 2. Atelectasis without evidence of pneumonia. 3. Prominent right lower paratracheal node. Although this may be reactive, continued follow-up is re commended to exclude malignancy. ACT 112: Negative or not required by law. Electronically signed by: Sreekanth Agustin M.D. 10/24/2021 11:46 AM
--- NOTE | 2021-10-24 13:03 | Ultrasound Report ---
ULTRASOUND OF THE CAROTID ARTERIES CLINICAL HISTORY: Assess carotid vessels COMPARISON: None available at the time of this dictation. TECHNIQUE: Real-time, grayscale, and color Doppler sonography of the carotid arteries is performed. I mages are reviewed in the transverse and longitudinal planes. FINDINGS: The carotid arteries are patent bilaterally and demonstrate antegrade flow. There is no atherosclerot ic plaque on the right and no atherosclerotic plaque on the left. Normal doppler arterial waveforms a re seen throughout. Velocity measurements are listed below. Common carotid peak systolic velocity (cm/sec): RIGHT: 63 LEFT: 68 ICA peak systolic velocity (cm/sec): RIGHT: 72 LEFT: 88 ICA/CC peak systolic ratio: RIGHT: 1.1 LEFT: 1.3 Antegrade flow was shown in the vertebral arteries. The external carotid arteries are patent. IMPRESSION: 1. There is no sonographic evidence of hemodynamically significant stenosis in the right or left car otid arterial system. 2. Antegrade flow is shown in the vertebral arteries. Society of Radiologists in Ultrasound consensus guidelines: Normal: ICA PSV is <125 cm/sec and no plaque or intimal thickening is visible sonographically additional criteria include ICA/CCA PSV ratio <2.0 and ICA EDV <40 cm/sec <50% ICA stenosis: ICA PSV is <125 cm/sec and plaque or intimal thickening is visible sonographically additional criteria include ICA/CCA PSV ratio <2.0 and ICA EDV <40 cm/sec 50-69% ICA stenosis: ICA PSV is 125-230 cm/sec and plaque is visible sonographically additional criteria include ICA/CCA PSV ratio of 2.0-4.0 and ICA EDV of 40-100 cm/sec ?70% ICA stenosis but less than near occlusion: ICA PSV is >230 cm/sec and visible plaque and luminal narrowing are seen at alva-scale and color Dopp ler ultrasound (the higher the Doppler parameters lie above the threshold of 230 cm/sec, the greater the likelihood of severe disease) additional criteria include ICA/CCA PSV ratio >4 and ICA EDV >100 cm/sec ACT 112: Negative or not required by law. Electronically signed by: Sreekanth Agustin M.D. 10/24/2021 1:02 PM
[2021-10-24] MEDS ORDERED: traMADol HCL 50 MG TABLET PO PRN (13:15)
[2021-10-24] MEDS ORDERED: KETOROLAC TROMETHAMINE 15 MG/ML VIAL IV PRN (13:15)
[2021-10-24] MEDS ORDERED: MoRPHine SULFATE 4 MG/ML 1 ML CARP\\VIAL IV PRN (13:17)
[2021-10-24] MEDS ORDERED: ACETAMINOPHEN 325 MG TAB PO PRN (13:17)
[2021-10-24] MEDS: GABAPENTIN 300 MG CAP PO SCH (20:16)
[2021-10-24] MEDS: TERAZOSIN HCL 1 MG CAP PO SCH (20:17)
[2021-10-24] MEDS: lisinopril 10 MG TAB PO SCH (20:17)
[2021-10-25 07:30] LABS: Lyme Ab IgG w/WB Rflx Negative (Negative); Lyme Ab IgM w/WB Rflx Negative (Negative)
[2021-10-25] MEDS: INSULIN ASPART PER UNIT SC SCH ×2 (08:01→12:37)
[2021-10-25] MEDS: predniSONE 5 MG TAB PO SCH (08:03)
[2021-10-25] MEDS: ATENOLOL 25 MG TABLET PO SCH (08:03)
[2021-10-25] MEDS: ASPIRIN 81 MG ECTAB PO SCH (08:03)
[2021-10-25] MEDS: CLOPIDOGREL BISULFATE 75 MG TAB PO SCH (08:03)
[2021-10-25] MEDS ORDERED: ENOXAPARIN INJ 40 MG/0.4 ML SYR SQ SCH (09:00)
--- NOTE | 2021-10-25 10:37 | Cardiology Progress Note ---
Date of Service October 25, 2021 Assessment & Plan (1) Chest pain: (2) CAD (coronary artery disease): (3) Diabetes mellitus, type 2: (4) Rheumatoid arthritis: Plan: I would continue current treatment. I do not believe any additional cardiac work-up is indicated. I believe this is musculoskeletal in origin. Admission and Anticipated Discharge Date Admission Date: October 24, 2021 Subjective The patient has had a marked improvement in his scapular, left shoulder and left chest pain with the start of analgesics and nonsteroidals. Review of Systems Review of Systems: Review of Systems: See HPI for pertinent positives. All other 10 point review of systems are negative. Physical Exam Physical Exam: General: no acute distress and stated age Head: normocephalic, no masses, lesions, tenderness or abnormalities Eyes: conjunctiva are pink and non-injected, sclera clear Neck: supple, no adenopathy, no bruits, normal jugular venous pulse, no hepatojugular reflux Chest: normal shape and normal respiratory effort Lungs: clear to auscultation and percussion Cardiac Exam: - regular rate & rhythm, no murmurs gallops or rubs - normal S1, normal S2 Pulses: 2(+) throughout Abdomen: abdomen soft, non-tender, no abnormal masses and no hepatosplenomegaly Musculoskeletal: no gait disturbance, no joint inflammation, no deforming arthritis Extremities: no edema and no cyanosis Neuro: grossly normal exam Results & Data ([facility]) Vital Signs (Past 12 Hours) Vital Signs Temp Pulse Pulse Resp BP BP Pulse Ox 10/25/21 08:13 36.5 C 75 16 107/69 96 10/25/21 07:17 76 10/25/21 03:00 36.3 C L 76 19 121/73 96 10/24/21 23:06 36.6 C 81 18 108/69 93 10/24/21 22:57 85 (1) Chest pain Chest pain type: unspecified Qualified Code(s): R07.9 - Chest pain, unspecified
--- NOTE | 2021-10-25 11:54 | Discharge Summary ---
Date of Service October 25, 2021 Admission HPI Per Admitting Provider 76-year-old male with PMH CAD with prior stenting, DM type II, dyslipidemia (statin intolerant, on Repatha therapy), rheumatoid arthritis on chronic prednisone and Rinvoq, GERD, and other problems listed below who presents the ED for evaluation of chest pain. Patient reports that he started to develop intermittent left arm and shoulder pain about 2 weeks ago. Patient reports discomfort was similar to his prior heart attacks. Patient reports that this morning he was outside doing some light yard work when he again developed left arm and shoulder pain however it was much more severe than what it had been over the past 2 weeks. Patient reports that he went inside and put on his oxygen that he typically wears at night. He reports no improvement in the discomfort and then pain started to radiate across the left side of his chest and into his jaw. Patient then presented to the ED for further evaluation. Patient reports associated lightheadedness and dizziness however no syncopal event. Denies diaphoresis, nausea, or shortness of breath. No other recent illnesses, fevers, chills. Denies urinary symptoms. In the ED, patient received SL nitro without any improvement in discomfort. He then received IV fentanyl 50 mcg x 2 and pain reduced from 8/10 to 5/10. During our exam, patient reports some mild worsening of chest discomfort. HS troponin 5.4 --> 5.0. EKG x 2 unchanged from comparison 01/2021. Patient was also given full dose aspirin. Admission Exam Per Admitting Provider Genera: Well hydrated, obese, no acute distress Eyes: PERRL, conjunctivae normal, not pale, anicteric sclerae, EOM intact bilaterally ENMT: External ear and nose normal, oropharynx normal Respiratory: Normal respiratory effort, no respiratory distress, lungs clear to auscultation, no crackles and no wheezes Cardiovascular:Pulse is RRR. S1 S2 Chest (Breasts):Chest: No chest wall tenderness on palpation Gastrointestinal (Abdomen): Abdomen is not distended, soft, non-tender to palpation, no guarding, no palpable hepatosplenomegaly, normal bowel sounds Musculoskeletal:No cyanosis or clubbing, all extremities motor strength 5/5. No pedal edema Neurologic: Alert and oriented x 3, No focal weakness, sensation grossly intact Psychiatric: Alert and oriented x 3, euthymic affect Principal Diagnosis Chest pain Discharge Exam Constitutional + well hydrated and + obese; no acute distress Eyes PERRL, conjunctivae normal, anicteric sclerae ENMT external ear and nose normal, oropharynx normal Hearing deficits Respiratory normal respiratory effort, lungs clear to auscultation Cardiovascular Rate/Rhythm: regular rate and regular rhythm S1 S2 Gastrointestinal (Abdomen) normal bowel sounds, soft, nontender, no hepatosplenomegaly Musculoskeletal no cyanosis or clubbing, extremities motor strength 5/5 No pedal edema Neurologic PERRL, EOMI, accommodation nl, no face palsy, no dysarthria Psychiatric A+Ox3, euthymic affect Discharge Data Allergies Allergy/AdvReac Type Severity Reaction Status Date / Time Iodinated Contrast Media Allergy Intermediate HIVES Verified 10/23/21 17:15 shellfish derived Allergy Intermediate hives Verified 10/23/21 17:15 meperidine AdvReac Mild Nausea Verified 10/23/21 17:15 methotrexate AdvReac Mild Nausea Verified 10/23/21 17:15 oxycodone AdvReac Mild n/v Verified 10/23/21 17:15 Msegfjp-[id number]-AaY Reductase AdvReac Mild myalgias Verified 10/23/21 17:15 Inhibitor [Mswexbx-Jas-Vem Reductase Inhibitor] Consultations 10/23/21 17:13 ED Decision to Admit Stat 10/23/21 19:10 Consult Cardiology Routine Ordered Studies 10/24/21 09:48 CT angio chest PE protocol Stat Lungs and pleura: Atelectasis versus scarring is seen in the dependent portions of the lungs. Heart and pericardium: Heart size is normal. No pericardial effusion. Vessels: No evidence of pulmonary embolism. Mediastinum and brit: Mediastinal nodes are seen measuring up to 13 mm in diameter in the right lower paratracheal station. Chest wall and lower neck: Unremarkable. Abdomen: Unremarkable. Bones: Degenerative changes in the thoracic spine. IMPRESSION: 1. No evidence of pulmonary embolus. 2. Atelectasis without evidence of pneumonia. 3. Prominent right lower paratracheal node. Although this may be reactive, continued follow-up is recommended to exclude malignancy. 10/24/21 09:51 US carotid doppler BI Urgent The carotid arteries are patent bilaterally and demonstrate antegrade flow. There is no atherosclerotic plaque on the right and no atherosclerotic plaque on the left. Normal doppler arterial waveforms are seen throughout. Velocity measurements are listed below. Common carotid peak systolic velocity (cm/sec): RIGHT: 63 LEFT: 68 ICA peak systolic velocity (cm/sec): RIGHT: 72 LEFT: 88 ICA/CC peak systolic ratio: RIGHT: 1.1 LEFT: 1.3 Antegrade flow was shown in the vertebral arteries. The external carotid arteries are patent. IMPRESSION: 1. There is no sonographic evidence of hemodynamically significant stenosis in the right or left carotid arterial system. 2. Antegrade flow is shown in the vertebral arteries Hospital Course (1) Chest pain: (2) CAD (coronary artery disease): Patient presented from home with reports of intermittent left arm/shoulder discomfort and chest pain x 2 weeks with acute worsening of the pain on the day of presentation. Noted that patient had dental work about 6 weeks ago and held Plavix for 1 week. History of CAD: Status post PTCA and stenting of the proximal LAD January 2000. Acute ST elevation CO in August 2013, PCI with a ZULY to the proximal LAD with residual 60% stenosis of the circumflex noted. Presentation in December 2019 with unstable angina, status post successful PCI of distal RCA, PDA bifurcation with 2 drug-eluting stents In the ED, patient received SL nitro without improvement in discomfort. Then received IV fentanyl 50 mcg x 2 doses with improvement however discomfort started to worsen again during our exam. HS Trop 5.4 -> 5.0->5.5->5.1. EKG unchanged from comparison January 2021 Troponin trend was negative but due to persistent pain and concern for possible unstable angina, was started on heparin drip TTE though technically limited did not show any wall motion abnormalities. RV was mildly dilated but not hypokinesis. Patient was evaluated by cardiology who did not think that pain was cardiac in origin. Patient's pain was controlled with medications. Patient's pain resolved completely today. And was discharged to continue his home medicines and to follow-up with his PCP and head cleaning porter CT PE was negative for PE. Some atelectasis as well as paratracheal node noted. PCP to follow this up (3) HTN (hypertension): Continue home anithypertensives (4) Diabetes mellitus, type 2: Hgb A1c 6.4 08/2021 Continue carb controlled diet (5) MARKO (obstructive sleep apnea): On nocturnal O2, patient is CPAP intolerant (6) Rheumatoid arthritis: On chronic prednisone and Rinvoq Total Time Total Time Spent Total Time Spent (In Minutes): 45 Total Time Includes: Examination of the Patient, Discharge Planning, Medication Reconciliation and Communication With Other Providers Discharge Plan Discharge Items Patient Disposition: Home - Self-Care Reason For Visit: CHEST PAIN Discharge Diagnosis: Chest pain Activity: Resume your previous activity Non-emergency contact: Primary Care Provider and Press Shop Supervisor Call non-emergency contact if: you have any medication questions and your symptoms worsen Follow-up/Referrals: Zev Lemus MD [Primary Care Provider] - Diet: Carb Consistent or DM2 and Heart Healthy Addtl Attending Provider Instructions: Mr Nath. You came to the hospital complainig of chest pain. You were evaluated with multiple tests and scans. You were also evaluated by Press Shop Supervisor. Evaluation did not indicate that this was related to your heart. You had CT chest which showed some mildly enlarged lymph nodes. Your chest pain resolved. Please ensure you follow up with your Primary Doctor and your Press Shop Supervisor. It was a pleasure taking care of you. Pending Studies at Discharge: No Stand-Alone Forms: My [facility] [employer], Smoking Cessation Medications and DC Order Prescriptions: Continued metformin 500 mg Tablet Extended Release 24 Hr 500 mg PO BID RF: 0 atenolol 25 mg Tablet 25 mg PO BID RF: 0 clopidogrel [Plavix] 75 mg Tablet 75 mg PO QAM RF: 0 aspirin 81 mg Tablet,Delayed Release (Dr/Ec) 81 mg PO QPM RF: 0 lisinopril 10 mg Tablet 10 mg PO QPM RF: 0 nitroglycerin [Nitrostat] 0.4 mg Tablet, Sublingual 0.4 mg Sublingual UD PRN (Reason: Chest Pain) RF: 0 sennosides-docusate sodium [Senokot-S] 8.6-50 mg tablet 1 tab PO DAILY PRN (Reason: constipation) Qty: 10 RF: 2 prednisone 5 mg tablet 5 mg PO DAILY RF: 0 amlodipine [Norvasc] 5 mg tablet 5 mg PO DAILY RF: 0 Repatha SureClick 140 mg/mL pen injector 140 mg SUBCUT .[id number] RF: 0 Ozempic 0.25 mg or 0.5 mg(2 mg/1.5 mL) pen injector 0.5 mg SUBCUT WK RF: 0 terazosin 2 mg capsule 2 mg PO HS RF: 0 gabapentin 300 mg capsule 300 mg PO HS RF: 0 sildenafil (pulm.hypertension) 20 mg tablet 0 mg PO DIRECTED RF: 0 Rinvoq 15 mg Tablet Extended Release 24 Hr 15 mg PO DAILY RF: 0 Discharge Orders: Discharge Order (Routine); Ordered 10/25/21 Ordered By: Nereida Taylor Admission Data Admit Date/Time: 10/24/21 18:30 Attending Provider: Nereida Taylor I. Admit Provider: Charlee Ramirez Primary Care Provider: Zev Lemus Other Providers: Charlee Ramirez ; Osmin Pino Other Interventions: Discharge Summary Assessment (RN) Last Done: 10/25/21 10:43
--- NOTE | 2021-10-25 12:28 | Electrocardiogram Report ---
Test Reason : Blood Pressure : / mmHG Vent. Rate : 077 BPM Atrial Rate : 077 BPM P-R Int : 168 ms QRS Dur : 082 ms QT Int : 388 ms P-R-T Axes : 015 019 048 degrees QTc Int : 439 ms Normal sinus rhythm possible Inferior infarct (cited on or before 23-OCT-2021) Abnormal ECG When compared with ECG of 24-OCT-2021 06:07, (unconfirmed) No significant change was found Confirmed by Maicol Medina ([id number]) on 10/25/2021 12:28:19 PM Referred By: REFERRED SELF Confirmed By:Andrea Medina
--- NOTE | 2021-10-25 12:33 | Electrocardiogram Report ---
Test Reason : Blood Pressure : / mmHG Vent. Rate : 071 BPM Atrial Rate : 071 BPM P-R Int : 170 ms QRS Dur : 080 ms QT Int : 400 ms P-R-T Axes : 020 019 049 degrees QTc Int : 434 ms Poor data quality, interpretation may be adversely affected Normal sinus rhythm possible Inferior infarct (cited on or before 23-OCT-2021) Abnormal ECG When compared with ECG of 23-OCT-2021 22:36, No significant change was found Confirmed by Maicol Medina ([id number]) on 10/25/2021 12:32:43 PM Referred By: REFERRED SELF Confirmed By:Andrea Medina
[2021-10-26 07:16] LABS: Estimated Average Glucose 131 mg/dl; Hemoglobin A1C 6.2 % (4.5-5.6)
== END 2021-10-25 12:54 | disposition home or self-care (01) | DRG 313 ==
LOC: ED 15:11 → 2S 15:11

== ENCOUNTER 2021-12-04 06:47 | Observation (INO) ==
[2021-12-04] MEDS ORDERED: fentaNYL citrate 100 MCG/2 ML VIAL ONE (07:42)
[2021-12-04] MEDS ORDERED: niCARdipine HCL INJ 2.5 MG/ML 10 ML AMP ONE ×2 (07:42→07:46)
[2021-12-04] MEDS ORDERED: HEPARIN (PORCINE) 1000 UNIT/ML 10 ML (CATH LAB USE ONLY) ONE ×2 (07:42→07:46)
[2021-12-04] MEDS ORDERED: MIDAZOLAM HCL 1 MG/ML 2ML VIAL ONE ×2 (07:42→09:23)
[2021-12-04] MEDS ORDERED: NITROGLYCERIN/D5W 100MCG/ML 20ML SYR ONE (07:43)
--- NOTE | 2021-12-04 07:56 | History & Physical Bridge Note ---
Date of Service December 04, 2021 History & Physical Bridge Note I have examined the patient, reviewed the History & Physical and in the interval since the performance of the History & Physical I have noted the following changes of clinical significance: no changes noted
--- NOTE | 2021-12-04 07:57 | Pre Anesthesia Assessment ---
Date of Service December 04, 2021 Pre Sedation Assessment Vital Signs Temp Pulse Resp BP Pulse Ox O2 Del Method 12/04/21 07:03 36.8 C 65 16 196/114 H 96 Room Air Cardiovascular RRR, no murmur, no edema Respiratory normal respiratory effort, lungs clear to auscultation Pre-Sedation Airway Assessment Smoking Status: Former smoker Hx Sleep Apnea: Yes Short, Thick Neck: No Thyromental Distance: > or= 3.5 Finger Breadths Oral Cavity: + Dentures Mallampati Class: IV ASA: ASA4 NPO Status Date of Last Intake of Fluids: 12/04/21 Time of Last Intake of Fluids: 06:00 Last Oral Intake of Fluids Comment: sip with meds Date of Last Intake of Solid Food: 12/03/21 Notes The planned sedation has been discussed with the patient. Informed Consent was obtained. I have identified the patient, determined the appropriateness of sedation and have assessed the patient immediately prior to the procedure. All medicine(s) and interventions are by my order.
[2021-12-04] MEDS ORDERED: ADENOSINE IV SOLN 3 MG/ML 20 ML VIAL IV ONE (09:19)
--- NOTE | 2021-12-04 09:25 | Cardiac Catheterization ---
Cardiac Cath Procedure Brief Procedure Date December 04, 2021 Pre-Procedure Diagnosis Pre-Procedure Diagnosis: Angina and CAD AUC Score AUC Score: 8 Wine And Spirits Clerk Jose Francisco Cespedes MD Wool Sampler(s) Karuna Ram Estimated Blood Loss Estimated Blood Loss: None Medication(s) Medication(s): Fentanyl (12.5 mcg IV x 2), Heparin (5000 units IV), Lidocaine 1% (Local infiltration access site), Nicardipine (250 mcg intra-arterial after ar terial sheath insertion x3 ), Nitroglycerin (200 mcg ntra arterial x 2) and Versed (1 mg IV x 2) Preliminary Findings Impression: Right dominant coronary anatomy Mid left anterior descending stenosis at distal end of proximal stent eccentric, positive FFR Recommendations Recommendations: PCI without planned CABG (Positive FFR patient referred for PCI mid left anterior descending) Specimens Specimens: None Fluids (cc crystalloids) Fluids (cc crystalloids): 123 Anesthesia Start time: 08 15, stop time: 09 17 Procedural Complication(s) None Disposition Accounts Receivable Specialist Holding/Recovery
[2021-12-04] MEDS ORDERED: CLOPIDOGREL BISULFATE 300 MG TAB ONE (09:36)
--- NOTE | 2021-12-04 09:45 | Post Anesthesia Assessment ---
Date of Service December 04, 2021 Post Sedation Assessment Vital Signs Temp Pulse Resp BP Pulse Ox O2 Del Method 12/04/21 07:03 36.8 C 65 16 196/114 H 96 Room Air Recovery Score Activity: Moves 4 extremities Respiration: Deep Breath/Cough Circulation: +/-20% PreAnes Value Consciousness: Fully Awake Oxygen Saturation: > 92% On Room Air Discharge Sedation Level of Care: Phase I Post Sedation Plan On clinical assessment, the patient appears to have tolerated the sedation without complications. Patient is recovering as anticipated. Patient will continue to be monitored by nursing and may be discharged when sedation discharge criteria are met per below protocol. Upon Completions of procedure up to 15 minutes continue every 5 minute vital signs and the P.A.R. score; then discharge to a Phase I or Fast Track to Phase II per the following guidelines: * Discharge Patient to appropriate Phase II area if PAR is 8 or greater or return to pre- procedure baseline. The post - procedure orders will be as directed. * If PAR score is less than 8 or not return to pre-procedure baseline then patient will follow Phase I monitoring till PAR is reached for Phase II. The Phase I may be done in procedure room or may call to secure a Phase I area. * If naloxone or flumazenil are used for reversal, hold in Phase I for continued monitoring from when last reversal dose was given for a minimum of 60 minutes or longer pending the nurse and/or physician discretion of patient condition before discharge to Phase II. Please call the Sedation Physician to re-evaluate and complete post-note for discharge to Phase II area. Do NOT discharge from procedure sedation or Phase 1 until post- sedation evaluation note is complete by procedure /sedation MD Sedation Discharge Instructions to be given to the patient at discharge to home.
--- NOTE | 2021-12-04 09:49 | Cardiac Catheterization ---
ACC Data: Insulation Worker Apprentice Cardiac Status Clinical evaluation leading to the procedure CAD Presenation: Unstable angina Anginal Classification: CCS III Diagnostic Physicians Name: Alfonzo Rodrigues MD Closure Device Recommendations: PCI without planned CABG (Positive FFR patient referred for PCI mid left anterior descending) Cardiac Cath Procedure Full Procedure Date December 04, 2021 Pre-Procedure Diagnosis Pre-Procedure Diagnosis: Angina and CAD AUC Score AUC Score: 8 Post-Procedure Diagnosis Post-Procedure Diagnosis: Severe CAD and Successful PCI Procedure(s) Performed Procedure(s) Performed: Coronary Angiography, Left Heart Cath and LV Angiography Ham Rolling Machine Operator Alfonzo Rodrigues MD Console Assembler(s) Karuna [facility] Estimated Blood Loss Estimated Blood Loss: None Medication(s) Medication(s): Fentanyl (12.5 mcg IV x 2), Heparin (5000 units IV), Lidocaine 1% (Local infiltration access site), Nicardipine (250 mcg intra-arterial after arterial sheath insertion x3 ), Nitroglycerin (200 mcg ntra arterial x 2) and Versed (1 mg IV x 2) Summary of Findings Impression: Right dominant coronary anatomy Mid left anterior descending stenosis at distal end of proximal stent eccentric, positive FFR PCI of mid LAD lesion performed, FFR was positive at 0.77. PCI performed with placement of 3.5 mm x 18 mm [place] drug-eluting stent in overlapping fashion with the previously placed stent in the proximal LAD, postdilatation was performed with 3.5 mm noncompliant balloon at 14 to 16 marialuisa pressure in the stent and subsequently with the stent overlap as well. Excellent angiographic results with normal flow. Hemodynamics Rest Ao:: 142/75/103 Final Ao: 150/86/114 LV: not done Recommendations Recommendations: PCI without planned CABG (Positive FFR patient referred for PCI mid left anterior descending) Specimens Specimens: None Radiation Exposure (mGy) 3501 Contrast (mls) 170 Fluids (cc crystalloids) Fluids (cc crystalloids): 123 Anesthesia Start time: 15, stop time: 17 Procedural Complication(s) None Disposition Insulation Worker Apprentice Holding/Recovery I attest to the content of the Intraoperative Record and any orders documented therein. Any exceptions are noted below. PG Care Time/CCT Total # of Minutes Spent Total Time Spent with Patient: Total time spent is greater than 50% in coordination of care (as documented) at patient's floor/unit and/or counseling patient:
[2021-12-04] MEDS: SODIUM CHLORIDE 0.9% 1000ML 1,000 ML IV SCH ×2 (11:02→19:11)
--- NOTE | 2021-12-04 11:20 | Cardiac Catheterization ---
Cardiac Cath Procedure Full Procedure Date December 04, 2021 Pre-Procedure Diagnosis Pre-Procedure Diagnosis: Angina and CAD AUC Score AUC Score: 8 Post-Procedure Diagnosis Post-Procedure Diagnosis: Severe CAD and Successful PCI Procedure(s) Performed Procedure(s) Performed: Coronary Angiography, Left Heart Cath and LV Angiography [employer] Jose Francisco Cespedes MD Strategic Manager(s) Karuna Ram Estimated Blood Loss Estimated Blood Loss: None Medication(s) Medication(s): Fentanyl (12.5 mcg IV x 2), Heparin (5000 units IV), Lidocaine 1% (Local infiltration access site), Nicardipine (250 mcg intra-arterial after arterial sheath insertion x3 ), Nitroglycerin (200 mcg ntra arterial x 2) and Versed (1 mg IV x 2) Summary of Findings Impression: Right dominant coronary anatomy Mid left anterior descending stenosis at distal end of proximal stent eccentric, positive FFR referred for PCI same heading Diffuse coronary atherosclerosis with patent stents proximal and mid left anterior descending, distal right coronary artery Procedure: Left heart catheterization, coronary angiography Catheters: Long 6 Cymro radial glide sheath, 5 Cymro [place], 5 Cymro JL 4, 5 Cymro JL 3.5, 5 Cymro JR4, 5 Cymro [place] Procedural notes: Vessel tortuosity in the right innominate artery restricting catheter mobility Coronary angiography: Right dominant coronary anatomy Diffuse coronary atherosclerosis Left main Short with mild calcification 20% distal taper Left anterior descending: Type III in distribution giving rise to a large diagonal in its proximal third a moderate-sized diagonal in its midportion and coursing beyond the apex. There are patent stents in the very proximal and in the midportion. There is an eccentric 60-70% narrowing between the 2 areas of stents within the [place] vessel. The distal LAD has moderate irregularities Left circumflex: Moderately large consisting of a a small first marginal and a large bifurcating obtuse marginal. The origin of the left circumflex has an eccentric 5060 % stenosis with diffuse disease in proximal third Right coronary: Large dominant vessel giving rise to a sinoatrial and conus branch at its origin, a large right ventricular branch at the end of its proximal third, an early takeoff PDA and 2 large posterior ventricular branches. There is a widely patent stent in the distal right coronary artery LV angiography: Not performed PCI of mid LAD lesion performed, FFR was positive at 0.77. PCI performed with placement of 3.5 mm x 18 mm [place] drug-eluting stent in overlapping fashion with the previously placed stent in the proximal LAD, postdilatation was performed with 3.5 mm noncompliant balloon at 14 to 16 [place] pressure in the stent and subsequently with the stent overlap as well. Excellent angiographic results with normal flow. Hemodynamics Rest Ao:: 164/78/111 Final Ao: 150/86/114 LV: 160/18, no transaortic valve gradient Recommendations Recommendations: PCI without planned CABG (Positive FFR patient referred for PCI mid left anterior descending) Specimens Specimens: None Radiation Exposure (mGy) 932 Contrast (mls) 130 Fluids (cc crystalloids) Fluids (cc crystalloids): 123 Anesthesia Start time: 15, stop time: 01 30 Procedural Complication(s) None Disposition Industrial Technology Teacher Holding/Recovery I attest to the content of the Intraoperative Record and any orders documented therein. Any exceptions are noted below. ACC Data: Industrial Technology Teacher Cardiac Status Clinical evaluation leading to the procedure CAD Presenation: Stable angina Anginal Classification: CCS III Heart Failure: No Cardiogenic Shock within 24 Hours: No Cardiac Arrest within 24 Hours: No Imaging Studies Past 6 Months: Yes Stress Studies Past 6 Months: No Standard Exercise Test: No Stress Echocardiogram: No Stress Testing w/SPECT MPI: No Cardiac CTA: No Coronary Anatomy Dominant: Right Left Main (% Stenosis): Distal (20) LAD (% Stenosis): Proximal (Patent stent) and Mid (Eccentric 60 to 70% stenosis between proximal and mid stenting) D1 (% Stenosis): Normal D2 (% Stenosis): Normal Circumflex (% Stenosis): Proximal (Calcified 50-60 with diffuse luminal irregularity throughout proximal circumflex) OM1 (% Stenosis): Normal OM2 (% Stenosis): Normal RCA (% Stenosis): Proximal (Moderate diffuse atherosclerotic changes) and Distal (Patent stent) R PDA (% Stenosis): Normal R PL1 (% Stenosis): Normal R PL2 (% Stenosis): Normal Diagnostic Physicians Name: Jose Francisco Cespedes MD Closure Device Recommendations: PCI without planned CABG (Positive FFR patient referred for PCI mid left anterior descending)
[2021-12-04 11:47] LABS: Basophils # (auto) 0.02 K/uL (0-0.2); Basophils % (auto) 0.4 %; Eosinophils # (auto) 0.12 K/uL (0-0.50); Eosinophils % (auto) 2.2 %; Hematocrit (blood only) 40.2 % (40.1-51.0); Hemoglobin 13.5 g/dl (14.0-18.0); Immature Granulocytes # (auto) 0.01 K/uL (0.00-0.02); Immature Granulocytes % (auto) 0.2 %; Lymphocytes # (auto) 0.97 K/uL (1.2-3.4); Mean Corpuscular Hgb Conc 33.6 g/dL (32.0-36.0); Mean Corpuscular Volume 92.2 fL (80.0-100.0); Mean Platelet Volume 9.4 fL (9.4-12.4); Monocytes # (auto) 0.45 K/uL (0.24-0.82); Monocytes % (auto) 8.3 %; Neutrophils # (auto) 3.82 K/uL (1.4-6.5); Neutrophils % (auto) 70.9 %; Platelet Count 278 K/uL (130-400); RDW Coefficient of Variation 13.3 % (11.5-14.5); Red Blood Count 4.36 M/uL (4.63-6.08); White Blood Count 5.39 K/ul (4.8-10.8)
--- NOTE | 2021-12-04 12:13 | History & Physical Report ---
Date of Service December 04, 2021 Assessment & Plan (1) Chest pain: Plan: Presented with typical anginal symptoms History of significant CAD and is status post PTCA of the proximal LAD in January 2000 Status post cardiac catheterization on 12/04/2021 with stent placement in mid left anterior descending artery No more chest pain following the procedure and the patient remained stable Appreciate cardiology in input and recommendation CBC, electrolytes, PT/INR and EKG were noted from outpatient chart We will continue the current medications (2) CAD (coronary artery disease): Plan: CAD status post proximal LAD stent placement in January [address] elevation [place] in 2014, PCI with a ZULY to the proximal LAD with residual 60% stenosis of the circumflex during that time Cardiac status as above (3) HTN (hypertension): Plan: Blood pressure remains stable now and will continue current medications (4) Diabetes mellitus, type 2: Plan: We will put him on sliding his scale insulin coverage Will check hemoglobin [id number] A1c was 6.4 on 09/02/2021 Hold metformin in the hospital (5) Rheumatoid arthritis: Plan: Nothing acute at this time (6) MARKO (obstructive sleep apnea): Plan: He is intolerant to CPAP Uses oxygen at nighttime (7) GERD (gastroesophageal reflux disease): Plan: Continue with current medications DVT prophylaxis Continue aspirin and Plavix Likely to go home tomorrow No other pharmacologic agent status post recent cath CODE STATUS Full Admission and Anticipated Discharge Date Admission Date: December 04, 2021 History of Present Illness Chief Complaint: Ongoing chest pain with exertion which is typical of angina with history of significant CAD. Primary Care Provider: Zev Lemus MD He is a 76-year-old obese male with significant past medical history of CAD status post PTCA in the proximal LAD in January 2000, longstanding labile hypertension, aortic stenosis, MARKO utilizing oxygen at night, hyperlipidemia, type 2 diabetes, history of remote arthritis and gastroesophageal reflux disease apparently has been complaining of chest pain typical of angina for the last few days or so. He was seen in the outpatient cardiology clinic and was advised for cardiac cath. He underwent cardiac cath today with the placement of PCI and it was admitted to telemetry unit for continuation of care following that. He denies any chest pain, palpitation, shortness of breath following the procedure. No recent history of weight gain, increasing leg swelling or increasing shortness of breath. No recent change of medications Allergies Allergy/AdvReac Type Severity Reaction Status Date / Time shellfish derived Allergy Intermediate hives Verified 12/04/21 07:07 meperidine AdvReac Mild Nausea Verified 12/04/21 07:07 methotrexate AdvReac Mild Nausea Verified 12/04/21 07:07 oxycodone AdvReac Mild n/v Verified 12/04/21 07:07 [id number] Reductase AdvReac Mild myalgias Verified 12/04/21 07:07 Inhibitor [Ffnzzwc-Dey-Her Reductase Inhibitor] Home Medications Medication Instructions Recorded Confirmed Type aspirin 81 mg tablet,delayed 81 mg PO QPM 02/28/18 12/04/21 History release atenolol 25 mg tablet 25 mg PO BID 02/28/18 12/04/21 History clopidogrel 75 mg tablet (Plavix) 75 mg PO QAM 02/28/18 12/04/21 History lisinopril 10 mg tablet 10 mg PO QPM 02/28/18 12/04/21 History nitroglycerin 0.4 mg sublingual 0.4 mg sublingual UD PRN Chest Pain 02/28/18 12/04/21 History tablet (Nitrostat) metformin 500 mg tablet,extended 500 mg PO BID 04/14/18 12/04/21 History release 24 hr amlodipine 5 mg tablet (Norvasc) 5 mg PO DAILY 01/03/20 12/04/21 History prednisone 5 mg tablet 5 mg PO DAILY 01/03/20 12/04/21 History evolocumab 140 mg/mL subcutaneous 140 mg subcut .[id number] 10/23/21 12/04/21 History pen injector (Repatha SureClick) gabapentin 300 mg capsule 300 mg PO HS 10/23/21 12/04/21 History semaglutide (Ozempic) 0.5 mg subcut WK 10/23/21 12/04/21 History sildenafil (pulm.hypertension) 20 0 mg PO DIRECTED 10/23/21 12/04/21 History mg tablet terazosin 2 mg capsule 2 mg PO HS 10/23/21 12/04/21 History upadacitinib 15 mg tablet,extended 15 mg PO DAILY 10/23/21 12/04/21 History release 24 hr (Rinvoq) Past Med/Surg History Medical History CAD (coronary artery disease) Status post PTCA and stenting of the proximal LAD January 2000. Acute ST elevation [place] in August 2013, PCI with a ZULY to the proximal LAD with residual 60% stenosis of the circumflex noted. Presentation in December 2019 with unstable angina, status post successful PCI of distal RCA, PDA bifurcation with 2 drug-eluting stents Diabetes mellitus, type 2 History of left heart catheterization (LHC) "02/01/00 PTCA and Stent of 90% prox LAD lesion. 50%left circ untreated. 2013 LHC DESx2 to LAD " HTN (hypertension) Hx of pancreatitis 02/2018 [facility] Myocardial Infarction 2013 OR 2014-NO RECENT CHEST PAIN PER SPOUSE On anticoagulant therapy DAILY PLAVIX SINCE 1999 On home oxygen therapy HS ONLY MARKO (obstructive sleep apnea) Rheumatoid arthritis Sleep apnea CAN'T TOLERATE CPAP -USES OXYGEN 2L/MIN NC Surgical History History of cardiac cath -1 STENT-[facility] History of cataract surgery R/L History of open reduction and internal fixation (ORIF) procedure LEFT ANKLE History of total knee replacement RIGHT Family History Brother Heart disorder Sister Heart disorder Social History Smoking Status: Former smoker Second Hand Exposure: No; Hx Alcohol Use: No Hx Substance Use: No Preferred Language: Turkish Communication Ability: Effective [place] Required: No Beliefs That Will Affect Care: None Current Living Situation: Spouse Feels Safe at Home: Yes Safety Concerns: Feels Safe At This Time Assistive Devices: Denture - Upper and Oxygen - at Night Review of Systems Review of Systems: All systems reviewed and are unremarkable except as noted below Physical Exam Physical Exam: Lying in bed comfortably Constitutional: well developed, well nourished and + obese; not ill appearing Eyes: PERRL, conjunctivae normal, anicteric sclerae ENMT: external ear and nose normal, oropharynx normal Neck: trachea midline, no thyromegaly Respiratory: no respiratory distress Auscultation: lungs clear to auscultation bilaterally Cardiovascular: Rate/Rhythm: regular rate and regular rhythm; not tachycardic Heart Sounds: normal S1, normal S2 and + murmur (1/6 to 2/6 ESM over aortic area) Extremities: + edema (Trace edema bilaterally) Gastrointestinal (Abdomen): Inspection/Auscultation: normal bowel sounds; abdomen not distended Percussion/Palpation: abdomen nontender Musculoskeletal: No acute arthritis involving any joint Neurologic: PERRL, EOMI, accommodation nl, no face palsy, no dysarthria Psychiatric: A+Ox3, euthymic affect Lymphatic: no cervical or axillary lymphadenopathy Results & Data Results & Data ([facility]) Vital Signs (Past 12 Hours) Vital Signs Temp Pulse Resp BP Pulse Ox O2 Del Method 12/04/21 11:16 36.7 C 70 18 147/84 H 95 12/04/21 11:09 36.4 C L 68 18 141/78 H 97 Room Air 12/04/21 10:30 73 16 110/85 97 Room Air 12/04/21 10:15 73 16 108/83 97 Room Air 12/04/21 10:00 64 16 111/71 97 Room Air 12/04/21 09:45 70 16 110/69 92 Room Air 12/04/21 07:03 36.8 C 65 16 196/114 H 96 Room Air Laboratory Results Short CBC 12/04/21 Range/Units 11:28 WBC 5.39 (4.8-10.8) K/ul Hgb 13.5 L (14.0-18.0) g/dl Hct 40.2 (40.1-51.0) % Plt Count 278 (130-400) K/uL Medications Administered Current Inpatient Medications Aspirin (Aspirin 81 Mg Ectab) 81 mg PO QAM [facility] Stop: 01/04/22 08:59 Clopidogrel Bisulfate (Clopidogrel Bisulfate 75 Mg Tab) 75 mg PO QAM [facility] Stop: 01/04/22 08:59 Sodium Chloride (Nss 1000ml) 1,000 mls @ 125 mls/hr IV .Q8H JACE Stop: 12/11/21 14:30 Last Admin: 12/04/21 11:02 Dose: 125 mls/hr Code Status & VTE Plan VTE Prophylaxis Plan VTE Prophylaxis will be ordered: No (1) Chest pain Chest pain type: unspecified Qualified Code(s): R07.9 - Chest pain, unspecified
[2021-12-04] MEDS ORDERED: NITROGLYCERIN SL 0.4 MG/TAB TAB SL PRN (12:16)
[2021-12-04] MEDS ORDERED: LIDOCAINE 1% LOCAL 20 ML VIAL ONE (13:25)
[2021-12-04] MEDS: ATENOLOL 25 MG TABLET PO SCH ×2 (13:26→20:59)
--- NOTE | 2021-12-04 14:56 | Communication Note ---
Date of Service: December 04, 2021 Patient was referred for diagnostic coronary angiography after progressive symptoms of exertional angina. Study today demonstrated eccentric lesion mid LAD between area of 2 prior stents which was FFR positive. Patient underwent drug-eluting stent implantation without difficulty Will continue current medications Maintain telemetry overnight on observation If no acute changes discharge in a.m.
[2021-12-04] MEDS ORDERED: CARBOHYDRATES FOR HYPOGLYCEMIA PO PRN (20:00)
[2021-12-04] MEDS ORDERED: DEXTROSE 50% 50 ML SYRINGE IV PRN (20:00)
[2021-12-04] MEDS ORDERED: GLUCOSE 10 TAB/TUBE PO PRN (20:00)
[2021-12-04] MEDS ORDERED: GLUCAGON FOR INJ 1 MG VIAL IM PRN (20:00)
[2021-12-04] MEDS ORDERED: GLUCOSE 40% GEL 15 GM TUBE PO PRN (20:00)
[2021-12-04] MEDS ORDERED: ASPIRIN 81 MG ECTAB PO SCH (21:00)
[2021-12-04] MEDS ORDERED: TERAZOSIN HCL 1 MG CAP PO SCH (21:00)
[2021-12-04] MEDS ORDERED: GABAPENTIN 300 MG CAP PO SCH (21:00)
[2021-12-04] MEDS ORDERED: lisinopril 10 MG TAB PO SCH (21:00)
[2021-12-04] MEDS: INSULIN ASPART PER UNIT SC SCH (21:06)
[2021-12-05] MEDS: SODIUM CHLORIDE 0.9% 1000ML 1,000 ML IV SCH (02:59)
[2021-12-05 07:24] LABS: BUN Creatinine Ratio 14.6 (10-20); Calcium 8.3 mg/dl (8.5-10.1); Creatinine Clr Calc Pharmacy 104.1 ml/min; Est GFR (Non-African American) 87.1 ml/min; Potassium 3.8 mmol/L (3.5-5.1)
[2021-12-05] MEDS: INSULIN ASPART PER UNIT SC SCH ×2 (07:49→11:39)
[2021-12-05] MEDS: ATENOLOL 25 MG TABLET PO SCH (07:49)
[2021-12-05 07:57] LABS: Estimated Average Glucose 126 mg/dl
[2021-12-05] MEDS ORDERED: predniSONE 5 MG TAB PO SCH (09:00)
[2021-12-05] MEDS ORDERED: ASPIRIN 81 MG ECTAB PO SCH (09:00)
[2021-12-05] MEDS ORDERED: CLOPIDOGREL BISULFATE 75 MG TAB PO SCH ×2 (09:00)
--- NOTE | 2021-12-05 09:05 | Electrocardiogram Report ---
Test Reason : Blood Pressure : / mmHG Vent. Rate : 067 BPM Atrial Rate : 067 BPM P-R Int : 168 ms QRS Dur : 080 ms QT Int : 410 ms P-R-T Axes : 046 019 064 degrees QTc Int : 433 ms Normal sinus rhythm Inferior infarct (cited on or before 23-OCT-2021) Abnormal ECG When compared with ECG of 25-OCT-2021 06:19, No significant change was found Confirmed by Jose Cruz Goldberg ([id number]) on 12/05/2021 9:04:56 AM Referred By: Marcel Lund Confirmed By:Jose Cruz Goldberg
--- NOTE | 2021-12-05 10:12 | Hospitalist Progress Note ---
Date of Service December 05, 2021 Assessment & Plan (1) Chest pain: Plan: Presented with typical anginal symptoms History of significant CAD and is status post PTCA of the proximal LAD in January 2000 Status post cardiac catheterization on 12/04/2021 with stent placement in mid left anterior descending artery PCI of mid LAD lesion performed, FFR was positive at 0.77. PCI performed with placement of 3.5 mm x 18 mm [place] drug-eluting stent in overlapping fashion with the previously placed stent in the proximal LAD. No more chest pain following the procedure and the patient remained stable Appreciate cardiology in input and recommendation CBC, electrolytes, PT/INR and EKG were noted from outpatient chart We will continue the current medications Plan to DC home (2) CAD (coronary artery disease): Plan: CAD status post proximal LAD stent placement in January [address] elevation [place] in 2013, PCI with a ZULY to the proximal LAD with residual 60% stenosis of the circumflex during that time Cardiac status as above (3) HTN (hypertension): Plan: Blood pressure remains stable now and will continue current medications (4) Diabetes mellitus, type 2: Plan: sliding scale insulin while inpt A1c was 6.4 on 09/02/2021, current A1c 6.0% Hold metformin in the hospital (5) Rheumatoid arthritis: Plan: Nothing acute at this time (6) MARKO (obstructive sleep apnea): Plan: He is intolerant to CPAP Uses oxygen at nighttime (7) GERD (gastroesophageal reflux disease): Plan: Continue with current medications DVT prophylaxis Continue aspirin and Plavix Plan to DC home today CODE STATUS: Full Admission and Anticipated Discharge Date Admission Date: December 04, 2021 Subjective Patient seen in follow-up of angina, status post PCI yesterday This AM pt feels well, denies any chest pain, palpitations, shortness of breath, cough, dizziness or lightheadedness Reports that he has been ambulating in hallways already yesterday evening Eager to be discharged home Review of Systems Review of Systems: All systems reviewed & are unremarkable except as noted in Subjective Physical Exam Physical Exam: Physical Exam: Lying in bed comfo rtably Constitutional:L + obese M in NAD Eyes: PERRL, EOMI, conju nctivae normal, an icteric sclerae ENMT: external ear and n ose normal, oropha rynx normal Neck: supple, thick Respiratory: no respiratory dis tress Auscultatio n: lungs clear to auscultation bilat erally Cardiovascular:L Rate/Rhythm: regul ar rate and regula r rhythm; not tach ycardic Heart Acty nds: normal S1, no rmal S2 and + murm ur (1/6 to 2/6 ESM over aortic area) Extremities: + e haylee (Trace edema bilaterally) Gastrointestinal ( Abdomen): Inspection/Auscult ation: normal romel l sounds; abdomen not distended Per cussion/Palpation: abdomen nontender Musculoskeletal: No acute arthritis involving any josue nt Neurologic: PERRL, EOMI,no fac e palsy, no dysart hria, moves extrem ities Psychiatric: A+Ox3, euthymic af fect Results & Data Results & Data ([facility]) Vital Signs (Past 12 Hours) Vital Signs Temp Pulse Pulse Resp BP Pulse Ox O2 Del Method 12/05/21 08:00 61 12/05/21 08:00 Room Air 12/05/21 08:01 36.4 C L 67 16 162/92 H 99 Nasal Cannula 12/05/21 03:51 36.4 C L 62 18 153/92 H 98 Nasal Cannula 12/04/21 23:00 66 12/04/21 23:36 36.4 C L 63 18 158/92 H 96 Room Air O2 Flow Rate 12/05/21 08:00 12/05/21 08:00 12/05/21 08:01 3 12/05/21 03:51 3 12/04/21 23:00 12/04/21 23:36 Laboratory Results 12/05/21 12/05/21 12/05/21 Range/Units 07:46 06:20 06:20 WBC (4.8-10.8) K/ul RBC (4.63-6.08) M/uL Hgb (14.0-18.0) g/dl Hct (40.1-51.0) % MCV (80.0-100.0) fL MCH (25.0-34.0) pg MCHC (32.0-36.0) g/dL RDW Std Deviation (36.4-46.3) fL RDW Coeff of [place] (11.5-14.5) % Plt Count (130-400) K/uL MPV (9.4-12.4) fL Immature Gran % (Auto) % Neut % (Auto) % Lymph % (Auto) % [place] % (Auto) % Eos % (Auto) % Baso % (Auto) % Neut # (Auto) (1.4-6.5) K/uL Lymph # (Auto) (1.2-3.4) K/uL [place] # (Auto) (0.24-0.82) K/uL Eos # (Auto) (0-0.50) K/uL Baso # (Auto) (0-0.2) K/uL Immature Gran # (Auto) (0.00-0.02) K/uL Activ Coag Time Kaolin (94-140) SECONDS Sodium 138 (136-145) mmol/L Potassium 3.8 (3.5-5.1) mmol/L Chloride 108 H (98-107) mmol/L Carbon Dioxide 25 (21-32) mmol/L Anion Gap 5 (3-11) BUN 12 (6-23) mg/dl Creatinine 0.82 (0.6-1.4) mg/dl Est Cr Clr Drug Dosing 104.1 ml/min Est GFR ( Amer) 101.0 ml/min Est GFR (Non-Af Amer) 87.1 ml/min BUN/Creatinine Ratio 14.6 (10-20) Glucose 96 (70-99(Fasting)) mg/dl POC Glucose 94 (70-99) mg/dl Estimat Average Glucose 126 mg/dl Hemoglobin A1c 6.0 H (4.5-5.6) % Calcium 8.3 L (8.5-10.1) mg/dl Magnesium 2.0 (1.7-2.4) mg/dl 12/04/21 12/04/21 12/04/21 Range/Units 21:03 11:28 09:34 WBC 5.39 (4.8-10.8) K/ul RBC 4.36 L (4.63-6.08) M/uL Hgb 13.5 L (14.0-18.0) g/dl Hct 40.2 (40.1-51.0) % MCV 92.2 (80.0-100.0) fL MCH 31.0 (25.0-34.0) pg MCHC 33.6 (32.0-36.0) g/dL RDW Std Deviation 45.0 (36.4-46.3) fL RDW Coeff of [place] 13.3 (11.5-14.5) % Plt Count 278 (130-400) K/uL MPV 9.4 (9.4-12.4) fL Immature Gran % (Auto) 0.2 % Neut % (Auto) 70.9 % Lymph % (Auto) 18.0 % [place] % (Auto) 8.3 % Eos % (Auto) 2.2 % Baso % (Auto) 0.4 % Neut # (Auto) 3.82 (1.4-6.5) K/uL Lymph # (Auto) 0.97 L (1.2-3.4) K/uL [place] # (Auto) 0.45 (0.24-0.82) K/uL Eos # (Auto) 0.12 (0-0.50) K/uL Baso # (Auto) 0.02 (0-0.2) K/uL Immature Gran # (Auto) 0.01 (0.00-0.02) K/uL Activ Coag Time Kaolin 237 H (94-140) SECONDS Sodium (136-145) mmol/L Potassium (3.5-5.1) mmol/L Chloride (98-107) mmol/L Carbon Dioxide (21-32) mmol/L Anion Gap (3-11) BUN (6-23) mg/dl Creatinine (0.6-1.4) mg/dl Est Cr Clr Drug Dosing ml/min Est GFR ( Amer) ml/min Est GFR (Non-Af Amer) ml/min BUN/Creatinine Ratio (10-20) Glucose (70-99(Fasting)) mg/dl POC Glucose 99 (70-99) mg/dl Estimat Average Glucose mg/dl Hemoglobin A1c (4.5-5.6) % Calcium (8.5-10.1) mg/dl Magnesium (1.7-2.4) mg/dl Medications Administered Current Inpatient Medications Aspirin (Aspirin 81 Mg Ectab) 81 mg PO QAM [facility] Stop: 01/04/22 08:59 Last Admin: 12/05/21 07:49 Dose: 81 mg Atenolol (Atenolol 25 Mg Tablet) 25 mg PO BID [facility] Stop: 01/03/22 12:29 Last Admin: 12/05/21 07:49 Dose: 25 mg Clopidogrel Bisulfate (Clopidogrel Bisulfate 75 Mg Tab) 75 mg PO QAM [facility] Stop: 01/04/22 08:59 Last Admin: 12/05/21 07:49 Dose: 75 mg Dextrose (Dextrose 50% 50 Ml Syringe) 25 - 50 ml IV UD PRN; Protocol PRN Reason: Hypoglycemia Protocol Stop: 01/03/22 19:59 Gabapentin (Gabapentin 300 Mg Cap) 300 mg PO HS [facility] Stop: 01/03/22 20:59 Last Admin: 12/04/21 20:59 Dose: 300 mg Glucagon (Glucagon For Inj 1 Mg Vial) 1 mg IM UD PRN; Protocol PRN Reason: Hypoglycemia Protocol Stop: 01/03/22 19:59 Glucose (Glucose 40% Gel 15 Gm Tube) 15 - 30 gm PO UD PRN; Protocol PRN Reason: Hypoglycemia Protocol Stop: 01/03/22 19:59 Glucose (Glucose 10 Tab/Tube) 4 - 8 tab PO UD PRN; Protocol PRN Reason: Hypoglycemia Protocol Stop: 01/03/22 19:59 Insulin Aspart (Insulin Aspart Per Unit) 0 units SC ACHS [facility] Stop: 01/03/22 20:59 Last Admin: 12/05/21 07:49 Dose: Not Given Lisinopril (Lisinopril 10 Mg Tab) 10 mg PO QPM [facility] Stop: 01/03/22 20:59 Last Admin: 12/04/21 20:59 Dose: 10 mg Miscellaneous (Order Awaiting Action) 1 each N/A QS [facility] Stop: 01/03/22 15:59 Last Admin: 12/05/21 07:47 Dose: Not Given Miscellaneous (Carbohydrates For Hypoglycemia ) 15 - 30 gm PO UD PRN PRN Reason: Hypoglycemia Treatment Stop: 01/03/22 19:59 Nitroglycerin (Nitroglycerin Sl 0.4 Mg/Tab Tab) 0.4 mg SL UD PRN PRN Reason: Chest Pain Stop: 01/03/22 12:15 Prednisone (Prednisone 5 Mg Tab) 5 mg PO DAILY [facility] Stop: 01/04/22 08:59 Last Admin: 12/05/21 07:49 Dose: 5 mg Terazosin HCl (Terazosin Hcl 1 Mg Cap) 2 mg PO HS [facility] Stop: 01/03/22 20:59 Last Admin: 12/04/21 20:59 Dose: 2 mg (1) Chest pain Chest pain type: unspecified Qualified Code(s): R07.9 - Chest pain, unspecified
--- NOTE | 2021-12-05 11:59 | Discharge Summary ---
Date of Service December 05, 2021 Admission HPI Per Admitting Provider He is a 76-year-old obese male with significant past medical history of CAD status post PTCA in the proximal LAD in January 2000, longstanding labile hypertension, aortic stenosis, MARKO utilizing oxygen at night, hyperlipidemia, type 2 diabetes, history of remote arthritis and gastroesophageal reflux disease apparently has been complaining of chest pain typical of angina for the last few days or so. He was seen in the outpatient cardiology clinic and was advised for cardiac cath. He underwent cardiac cath today with the placement of PCI and it was admitted to telemetry unit for continuation of care following that. He denies any chest pain, palpitation, shortness of breath following the procedure. No recent history of weight gain, increasing leg swelling or increasing shortness of breath. No recent change of medications Admission Exam Per Admitting Provider Physical Exam: Lying in bed comfortably Constitutional: well developed, well nourished and + obese; not ill appearing Eyes: PERRL, conjunctivae normal, anicteric sclerae ENMT: external ear and nose normal, oropharynx normal Neck: trachea midline, no thyromegaly Respiratory: no respiratory distress Auscultation: lungs clear to auscultation bilaterally Cardiovascular: Rate/Rhythm: regular rate and regular rhythm; not tachycardic Heart Sounds: normal S1, normal S2 and + murmur (1/6 to 2/6 ESM over aortic area) Extremities: + edema (Trace edema bilaterally) Gastrointestinal (Abdomen): Inspection/Auscultation: normal bowel sounds; abdomen not distended Percussion/Palpation: abdomen nontender Musculoskeletal: No acute arthritis involving any joint Neurologic: PERRL, EOMI, accommodation nl, no face palsy, no dysarthria Psychiatric: A+Ox3, euthymic affect Lymphatic: no cervical or axillary lymphadenopathy Principal Diagnosis Severe CAD s/p Successful PCI Discharge Exam Physical Exam: Lying in bed comfortably Constitutional: + obese M in NAD Eyes: PERRL, EOMI, conjunctivae normal, anicteric sclerae ENMT: external ear and nose normal, oropharynx normal Neck: supple, thick Respiratory: no respiratory distress Auscultation: lungs clear to auscultation bilaterally Cardiovascular: Rate/Rhythm: regular rate and regular rhythm; not tachycardic Heart Sounds: normal S1, normal S2 and + murmur (1/6 to 2/6 ESM over aortic area) Extremities: + edema (Trace edema bilaterally) Gastrointestinal (Abdomen): Inspection/Auscultation: normal bowel sounds; abdomen not distended Percussion/Palpation: abdomen nontender Musculoskeletal: No acute arthritis involving any joint Neurologic: PERRL, EOMI,no face palsy, no dysarthria, moves extremities Psychiatric: A+Ox3, euthymic affect Discharge Data Allergies Allergy/AdvReac Type Severity Reaction Status Date / Time shellfish derived Allergy Intermediate hives Verified 12/04/21 07:07 meperidine AdvReac Mild Nausea Verified 12/04/21 07:07 methotrexate AdvReac Mild Nausea Verified 12/04/21 07:07 oxycodone AdvReac Mild n/v Verified 12/04/21 07:07 Xitqnou-RHV-NkC Reductase AdvReac Mild myalgias Verified 12/04/21 07:07 Inhibitor [Nltijfr-Jdt-Glx Reductase Inhibitor] Consultations 12/04/21 10:08 Consult Hospitalist Routine Procedures Performed Operation Date: 12/04/21 08:00 Actual Procedures s Cineradiography w/Routine Exam - Jose Francisco Cespedes MD p Cath, Coronaries ONLY (no LV) - Jose Francisco Cespedes MD s Fraction Flow [place] SGL Ves - Alfonzo Rodrigues MD p Drug Eluting Stent SGl Vessel - Alfonzo Rodrigues MD Ordered Studies 12/04/21 06:53 CL Cath Imgs for PACS use only Routine Hospital Course (1) Chest pain: Presented with typical anginal symptoms History of significant CAD and is status post PTCA of the proximal LAD in January 2000 Status post cardiac catheterization on 12/04/2021 with stent placement in mid left anterior descending artery PCI of mid LAD lesion performed, FFR was positive at 0.77. PCI performed with placement of 3.5 mm x 18 mm Ancelmo drug-eluting stent in overlapping fashion with the previously placed stent in the proximal LAD. No more chest pain following the procedure and the patient remained stable Appreciate cardiology in input and recommendation CBC, electrolytes, PT/INR and EKG were noted from outpatient chart We will continue the current medications Plan to DC home (2) CAD (coronary artery disease): CAD status post proximal LAD stent placement in January [address] elevation [place] in 2013, PCI with a ZULY to the proximal LAD with residual 60% stenosis of the circumflex during that time Cardiac status as above (3) HTN (hypertension): Blood pressure remains stable now and will continue current medications (4) Diabetes mellitus, type 2: sliding scale insulin while inpt A1c was 6.4 on 09/02/2021, current A1c 6.0% Hold metformin in the hospital (5) Rheumatoid arthritis: Nothing acute at this time (6) MARKO (obstructive sleep apnea): He is intolerant to CPAP Uses oxygen at nighttime (7) GERD (gastroesophageal reflux disease): Continue with current medications Total Time Total Time Spent Total Time Spent (In Minutes): 40 Discharge Plan Discharge Items Patient Disposition: Home - Self-Care Reason For Visit: Chest Pain Discharge Diagnosis: Severe CAD s/p Successful PCI Activity: Per Instructions section Non-emergency contact: Primary Care Provider and Chief Optometry Service Call non-emergency contact if: you have any medication questions and your symptoms worsen Follow-up/Referrals: Zev Lemus MD [Primary Care Provider] - Diet: Carb Consistent or DM2 and Heart Healthy Addtl Attending Provider Instructions: Follow-up with your primary care doctor within 1 to 2 weeks. You should also follow-up with your tube buffer. Make sure to continue taking aspirin and Plavix, and the rest of your medications. Pending Studies at Discharge: No Stand-Alone Forms: My [facility] [employer], Smoking Cessation Medications and DC Order Prescriptions: Continued metformin 500 mg Tablet Extended Release 24 Hr 500 mg PO BID atenolol 25 mg Tablet 25 mg PO BID clopidogrel [Plavix] 75 mg Tablet 75 mg PO QAM aspirin 81 mg Tablet,Delayed Release (Dr/Ec) 81 mg PO QPM lisinopril 10 mg Tablet 10 mg PO QPM nitroglycerin [Nitrostat] 0.4 mg Tablet, Sublingual 0.4 mg Sublingual UD PRN (Reason: Chest Pain) prednisone 5 mg tablet 5 mg PO DAILY amlodipine [Norvasc] 5 mg tablet 5 mg PO DAILY Repatha SureClick 140 mg/mL pen injector 140 mg SUBCUT .[id number] Ozempic 0.25 mg or 0.5 mg(2 mg/1.5 mL) pen injector 0.5 mg SUBCUT WK terazosin 2 mg capsule 2 mg PO HS gabapentin 300 mg capsule 300 mg PO HS sildenafil (pulm.hypertension) 20 mg tablet 0 mg PO DIRECTED Rinvoq 15 mg Tablet Extended Release 24 Hr 15 mg PO DAILY Rx Instructions: DID NOT SEE ON DR 1ST, WAS ON GMG LIST Discharge Orders: Discharge Order (Routine); Ordered 12/05/21 Ordered By: Fredy Rosas Admission Data Admit Date/Time: 12/04/21 10:03 Attending Provider: Jose Francisco Cespedes Admit Provider: Jose Francisco Cespedes Primary Care Provider: Zev Lemus Other Providers: Senia Tapia ; Adeola Amaya I. ; Aidee Uribe ; Cyrus Vazquez ; Michelle Dixon ; Caridad Noland ; Danyelle Choi ; Jarrod Meier ; Gabe Mendoza ; Frederick Power ; Charlee Ramirez ; Refugio Salinas ; Angeli Sesay ; Divina Croft ; Haroon Rodgers ; Matilde Parkinson ; Teena Rodriguez ; Elza Maza ; Nereida Taylor I. ; Fredy Rosas ; Aletha Almodovar ; Shell Martinez ; Gigi Hook ; Shyam Schwartz ; Beni Flannery
== END 2021-12-05 12:51 | disposition home or self-care (01) ==
LOC: CC 06:47 → 2S 06:47
PROC: CLB.CCO (2021-12-04 08:00)

== ENCOUNTER 2024-11-26 07:57 | Inpatient (IN) ==
--- NOTE | 2024-11-26 08:07 | Emergency Department Note ---
Impression & Plan Acute pain of right hip, Inability to bear weight ED Provider Note NAME: ELVIS SPEARS AGE: 79 SEX: M : 1945 ARRIVES VIA: Ambulance INFORMANT: Patient, EMS ED PROVIDER(S): James Brady DO CHIEF COMPLAINT: Leg pain HPI: The patient is a 79-year-old male who presented to the emergency department by ambulance for an evaluation of leg pain. The patient has a history of a recently diagnosed DVT. He also has a history of PE. He was started on blood thinners. He states that over the last week he has been having problems with right hip pain. He is not sure why. He denies having any fall. He denies having any swelling. He did complains of muscle cramping and leg pain behind his right thigh. The patient denies having any fever. ROS: See above HPI for pertinent positives & negatives. A total of 10 systems reviewed and were otherwise negative. PAST MEDICAL HISTORY: See Below PAST SURGICAL HISTORY: See Below FAMILY HISTORY: See Below SOCIAL HISTORY: See Below HOME MEDICATIONS: See Below ALLERGIES: See Below VITALS: See Below PHYSICAL EXAMINATION: GENERAL: The patient is awake and alert. The patient is very anxious and appears to be uncomfortable. EYES: The conjunctivae are clear. The pupils are round and reactive. EARS, NOSE, MOUTH AND THROAT: The nose is without any evidence of any deformity. NECK: The neck is nontender and supple. RESPIRATORY: Normal respiratory effort is noted there is no evidence of wheezing rhonchi or rales CARDIOVASCULAR: Regular rate and rhythm noted there no murmurs rubs or gallops normal S1 normal S2. GASTROINTESTINAL: The abdomen is soft. Abdomen is nontender. BACK: No midline tenderness or or step-off noted range of motion in flexion extension as well as rotation no signs of muscle spasm noted MUSCULOSKELETAL/EXTREMITIES: There is pain with palpation over the lateral aspect of the right hip. There is no crepitus. There is no shortening or rotation. SKIN: There is no obvious evidence of any rash. There are no petechiae, pallor or cyanosis noted. Pulses are symmetric in both feet. NEUROLOGIC: Patient is awake alert and oriented x3 strength is symmetric patellar reflexes are 2+ bilaterally MEDICAL DECISION MAKING: The patient is a 79-year-old male who presented to the emergency department for an evaluation of right hip pain. The patient has been experiencing right hip pain over the course the last few days but it got worse today. He was unable to bear weight. Radiographic studies were reviewed as well as laboratory studies. He was treated with pain medication in the emergency department with only minimal relief of his symptoms. The patient had ongoing inability to ambulate. For this reason I [facility] They have agreed to evaluate the patient in the emergency department for further management and disposition. Triage Nursing notes reviewed. Prior medical records reviewed Vital Signs: reviewed and remarkable for elevated blood pressure. Differential diagnosis: DVT, musculoskeletal, infection, joint effusion, trauma, lymphedema, idiopathic, CHF, as well as other pathologies. ER treatment provided: See below Diagnostics interpreted by me: ECG: EKG was obtained in the emergency department. My interpretation is normal sinus rhythm at 74 bpm. There is no ectopy. There is no acute ST segment abnormalities noted. QTc was 406 ms. Cardiac Monitoring: An order was placed for continuous cardiac monitoring. The monitor shows a rate of 70 bpm with sinus rhythm. Laboratory studies: As stated above and show below. Imaging studies: See below. Radiographic imaging was reviewed by myself Consultation(s): I discussed this case with Svetlana who [facility] Past Med/Surg History Problem List (Updated 11/26/24 @ 15:46 by James Brady DO) Inability to bear weight (Acute) Acute pain of right hip (Acute) Ambulatory dysfunction Leukocytosis Hypertensive urgency History of deep vein thrombosis (DVT) of lower extremity History of pulmonary embolus (PE) Right hip pain Leg pain, right (Acute) Stenosis of external carotid artery Acute hypoxemic respiratory failure Pulmonary embolism (Acute) DVT prophylaxis HTN (hypertension) CAD (coronary artery disease) Status post PTCA and stenting of the proximal LAD January 2000. Acute ST elevation [place] in August 2013, PCI with a ZULY to the proximal LAD with residual 60% stenosis of the circumflex noted. Presentation in December 2019 with unstable angina, status post successful PCI of distal RCA, PDA bifurcation with 2 drug-eluting stents Chest pain (Acute) GERD (gastroesophageal reflux disease) Diabetes mellitus, type 2 Rheumatoid arthritis MARKO (obstructive sleep apnea) History of left heart catheterization (LHC) "02/01/00 PTCA and Stent of 90% prox LAD lesion. 50%left circ untreated. 2013 LHC DESx2 to LAD " Medical History Hx of pancreatitis 02/2018 [facility] On anticoagulant therapy DAILY [place] SINCE 1999 On home oxygen therapy HS ONLY Sleep apnea CAN'T TOLERATE CPAP -USES OXYGEN 2L/MIN NC Myocardial Infarction 2013 OR 2014-NO RECENT CHEST PAIN PER SPOUSE Surgical History History of open reduction and internal fixation (ORIF) procedure LEFT ANKLE History of total knee replacement RIGHT History of cardiac cath -1 STENT-[facility] History of cataract surgery R/L Family History Brother Heart disorder Sister Heart disorder Social History Smoking Status: Former smoker Second Hand Exposure: No; Do You Dip or Chew Tobacco: No; Hx Alcohol Use: No Hx Substance Use: No Preferred Language: Central African Communication Ability: Effective Accounting Manager Assistant Controller Required: No Beliefs That Will Affect Care: None marital status: Current Living Situation: Spouse How many Children do You have: 2 Other Information That Helps Us Care for You: No Feels Safe at Home: Yes Safety Concerns: Feels Safe At This Time Assistive Devices: Denture - Upper, Denture - Lower, Glasses, Hearing Aid - Bilateral and Oxygen - at Night Allergies Allergies Allergy/AdvReac Type Severity Reaction Status Date / Time upadacitinib [From Rinvoq] Allergy Severe Blood clots Unverified 11/26/24 09:08 shellfish derived Allergy Intermediate hives Verified 11/26/24 09:03 methotrexate AdvReac Intermediate NAUSEA/VOMI Verified 11/26/24 09:03 TING oxycodone AdvReac Intermediate NAUSEA/VOMI Verified 11/26/24 09:03 TING Jdbsogm-BRA-BtO Reductase AdvReac Intermediate myalgias Verified 11/26/24 09:03 Inhibitor [Agmwkfu-Swz-Eed Reductase Inhibitor] meperidine AdvReac Mild Nausea Verified 11/26/24 09:03 Home Meds Home Medications Medication Instructions Recorded Confirmed clopidogrel 75 mg tablet (Plavix) 75 mg PO QAM 02/28/18 11/26/24 lisinopril 10 mg tablet 10 mg PO QPM 02/28/18 11/26/24 nitroglycerin 0.4 mg sublingual 0.4 mg sublingual DIRECTED PRN 02/28/18 11/26/24 tablet (Nitrostat) Chest Pain amlodipine 5 mg tablet (Norvasc) 5 mg PO QAM 01/03/20 11/26/24 prednisone 5 mg tablet 5 mg PO DAILY PRN RA FLARE UPS 01/03/20 11/26/24 evolocumab 140 mg/mL subcutaneous 140 mg subcut Q14D 10/23/21 11/26/24 pen injector (Azul Doyle) gabapentin 100 mg capsule 100 mg PO TID 09/26/24 11/26/24 insulin degludec 100 25 unit subcut QAM 09/26/24 11/26/24 unit-liraglutide 3.6 mg/mL(3 mL) subcutaneous pen (Xultophy 100/3.6) metoprolol succinate 25 mg 25 mg PO QAM 09/26/24 11/26/24 tablet,extended release 24 hr nystatin 100,000 unit/gram topical 1 applic topical TID PRN Rash 09/26/24 11/26/24 powder Previous Rx's Medication Instructions Recorded apixaban 5 mg tablet (Eliquis) 5 mg PO BID #74 tabs 09/28/24 Results & Data (ED) Vital Signs Vital Signs - 24 hr 11/26/24 07:49 11/26/24 07:51 11/26/24 08:03 Temperature 36.7 C Temperature Source Oral Pulse Rate 85 Pulse Rate [Apical] Pulse Rhythm [Apical] Pulse Strength [Apical] Respiratory Rate 18 17 Respiratory Effort / Characteristics Respiratory Depth Respiratory Pattern Blood Pressure 197/111 H Blood Pressure [Right Arm] Blood Pressure Mean 139 Blood Pressure Mean [Right Arm] Blood Pressure Position [Right Arm] Pulse Oximetry 97 95 Oxygen Delivery Method Room Air Oxygen Flow Rate Sepsis Recent Fever Within 48 Hours No Sepsis New/Unexplained Change in Mental Status N/A Sepsis Action Taken by Nursing No Action Required 11/26/24 08:26 11/26/24 08:59 11/26/24 10:00 Temperature Temperature Source Pulse Rate 75 Pulse Rate [Apical] 67 70 Pulse Rhythm [Apical] Pulse Strength [Apical] Respiratory Rate 16 16 Respiratory Effort / Characteristics Non-Labored Spontaneous Non-Labored Respiratory Depth Normal Normal Respiratory Pattern Regular Blood Pressure Blood Pressure [Right Arm] 134/80 155/79 H Blood Pressure Mean Blood Pressure Mean [Right Arm] 98 104 Blood Pressure Position [Right Arm] Pulse Oximetry 98 99 Oxygen Delivery Method Nasal Cannula Nasal Cannula Oxygen Flow Rate 4 4 Sepsis Recent Fever Within 48 Hours Sepsis New/Unexplained Change in Mental Status Sepsis Action Taken by Nursing 11/26/24 12:00 Temperature Temperature Source Pulse Rate Pulse Rate [Apical] 72 Pulse Rhythm [Apical] Regular Pulse Strength [Apical] Normal Respiratory Rate 17 Respiratory Effort / Characteristics Non-Labored Spontaneous Respiratory Depth Normal Respiratory Pattern Regular Blood Pressure Blood Pressure [Right Arm] 146/91 H Blood Pressure Mean Blood Pressure Mean [Right Arm] 109 Blood Pressure Position [Right Arm] Lying Pulse Oximetry 99 Oxygen Delivery Method Nasal Cannula Oxygen Flow Rate 2 Sepsis Recent Fever Within 48 Hours Sepsis New/Unexplained Change in Mental Status Sepsis Action Taken by [facility] Medications Current Medication List: was personally reviewed by me Laboratory Data Attestation: I reviewed the patient's lab results. 11/26/24 08:10 11/26/24 08:10 Lab Results 11/26/24 11/26/24 Range/Units 08:10 09:36 WBC 11.21 H (4.8-10.8) K/ul RBC 5.14 (4.70-6.10) M/uL Hgb 15.5 (14.0-18.0) g/dl Hct 46.8 (42.0-52.0) % MCV 91.1 (80.0-100.0) fL MCH 30.2 (25.0-34.0) pg MCHC 33.1 (32.0-36.0) g/dL RDW Std Deviation 44.2 (36.4-46.3) fL RDW Coeff of [place] Jay 13.2 (11.5-14.5) % Plt Count 326 (130-400) K/uL MPV 9.3 L (9.4-12.4) fL Immature Gran % (Auto) 0.6 % Neut % (Auto) 76.0 % Lymph % (Auto) 14.2 % Ford % (Auto) 7.7 % Eos % (Auto) 1.2 % Baso % (Auto) 0.3 % Neut # (Auto) 8.53 H (1.40-6.50) K/uL Lymph # (Auto) 1.59 (1.20-3.40) K/uL Ford # (Auto) 0.86 H (0.11-0.59) K/uL Eos # (Auto) 0.13 (0.00-0.50) K/uL Baso # (Auto) 0.03 (0.00-0.20) K/uL Immature Gran # (Auto) 0.07 (0.01-0.20) K/uL PT 11.2 (9.0-12.0) Seconds INR 1.0 (0.9-1.1) APTT 27 (21-31) Seconds PTT Ratio 1.0 Sodium 133 L (136-145) mmol/L Potassium 4.5 (3.5-5.1) mmol/L Chloride 96 L (98-107) mmol/L Carbon Dioxide 29 (21-32) mmol/L Anion Gap 8 (3-11) BUN 21 (6-23) mg/dl Creatinine 0.90 (0.6-1.4) mg/dl Est Cr Clr Drug Dosing 91.3 ml/min eGFR 87.96 BUN/Creatinine Ratio 23.3 H (10-20) Glucose 261 H (70-99(Fasting)) mg/dl Calcium 9.2 (8.6-10.3) mg/dl Total Bilirubin 0.5 (0.2-1.0) mg/dl AST 17 (13-39) U/L ALT 34 (7-52) U/L Alkaline Phosphatase 62 (34-104) U/L Troponin I High Sens 13.3 (0-20) pg/ml Total Protein 7.8 (6.0-8.3) gm/dl Albumin 3.8 (3.4-5.0) gm/dl Globulin 4.0 (2.5-4.0) gm/dl Albumin/Globulin Ratio 1.0 (0.9-2) Lipase 16 (11-82) U/L Procalcitonin 0.15 (0-0.5) ng/ml Urine Color Yellow Urine Appearance Clear (Clear) Urine pH 6.0 (4.5-7.5) Ur Specific [place]man 1.023 (1.000-1.030) Urine Protein Negative (Negative) Urine Glucose (UA) 3+ H (Negative) Urine Ketones Negative (Negative) Urine Blood Negative (Negative) Urine Nitrite Negative (Negative) Urine Bilirubin Negative (Negative) Urine Urobilinogen Negative (Negative) Ur Leukocyte Esterase Negative (Negative) Urine Comment Administered Medications Acetaminophen (Acetaminophen 500 Mg Tab) 1,000 mg PO Q8H [facility] Stop: 12/26/24 13:44 Last Admin: 11/26/24 13:50 Dose: 1,000 mg Documented By: RICA Gabapentin (Gabapentin 100 Mg Cap) 100 mg PO TID [facility] Stop: 12/26/24 14:23 Last Admin: 11/26/24 15:09 Dose: 100 mg Documented By: MARCO Hydralazine HCl (Hydralazine Hcl 20 Mg/Ml Vial) 5 mg IV Q4H PRN PRN Reason: SBP>185 Stop: 12/26/24 13:32 Last Admin: 11/26/24 14:54 Dose: 5 mg Documented By: MARCO Insulin Aspart (Insulin Aspart Per Unit Charge) 0 units SC ACHS [facility] Stop: 12/26/24 13:29 Last Admin: 11/26/24 14:25 Dose: Not Given Documented By: MARCO Morphine Sulfate (Morphine Sulfate 2 Mg/Ml Carp) 2 mg IV Q4H PRN PRN Reason: Severe Pain (Scale 7, 8, 9,10) Stop: 12/10/24 13:00 Last Admin: 11/26/24 15:14 Dose: 2 mg Documented By: MARCO Oxycodone HCl (Oxycodone Hcl Ir 5 Mg Tab (Immediate Release)) 5 mg PO Q4H PRN PRN Reason: Mod-Sev Pain (Scale 4-10) Stop: 12/10/24 13:00 Last Admin: 11/26/24 14:28 Dose: 5 mg Documented By: MARCO Discontinued Medications Lidocaine (Lidocaine 5% 1 Patch) 1 patch TD NOW STA Stop: 11/26/24 13:13 Last Admin: 11/26/24 13:51 Dose: 1 patch Documented By: RICA Morphine Sulfate (Morphine Sulfate 4 Mg/Ml 1 Ml Carp\\Vial) 4 mg IV Q15M PRN PRN Reason: Pain Stop: 12/10/24 08:02 Last Admin: 11/26/24 11:16 Dose: 4 mg Documented By: Admin: 11/26/24 09:00 Dose: 4 mg Documented By: Admin: 11/26/24 08:09 Dose: 4 mg Documented By: RAYMOND Ondansetron HCl (Ondansetron Inj 2 Mg/Ml 2 Ml Vial) 4 mg IV NOW STA Stop: 11/26/24 08:04 Last Admin: 11/26/24 08:09 Dose: 4 mg Documented By: RAYMOND Imaging Data Attestation: I personally reviewed and interpreted this imaging study as follows: My Impression: 1 view chest x-ray was obtained in the emergency department. My interpretation is no free air or definite infiltrate, final report below. Radiologist's Impression: Chest X-Ray 11/26/24 08:03 XR chest 1V portable CLINICAL HISTORY: pain COMPARISON STUDY: 09/26/2024 FINDINGS: Heart size and pulmonary vasculature are normal. Inspiration is shallow. No consolidation or pleural effusion seen. No pneumothorax. IMPRESSION: No acute findings. ACT 112: Negative or not required by law. Electronically signed by: Oskar Villagran M.D. 11/26/2024 8:36 AM Hip/Pelvis X-Ray 11/26/24 08:03 XR hip RT 2V w pelvis CLINICAL HISTORY: pain COMPARISON: None FINDINGS: Skin fold artifact is present. No fracture or dislocation seen. There are minimal degenerative changes at the hips. SI joints are unremarkable. There are lower lumbar degenerative changes. IMPRESSION: No acute findings. ACT 112: Negative or not required by law. Electronically signed by: Oskar Villagran M.D. 11/26/2024 8:37 AM Venous Doppler Study 11/26/24 08:03 ULTRASOUND RIGHT LOWER EXTREMITY VENOUS CLINICAL HISTORY: Right leg pain. Recent DVT. COMPARISON STUDY: Right lower extremity venous ultrasound dated 11/20/2024 TECHNIQUE: Real-time, grayscale, and color Doppler sonography of the deep veins of the right lower extremity was performed from the inguinal crease to the calf. Compression and augmentation were utilized. FINDINGS: There is no sonographic evidence of deep venous thrombosis identified in the right lower extremity. The common femoral, superficial femoral, and popliteal veins are patent and normally compressible. The greater saphenous vein and the profunda femoris vein at the junction with the common femoral vein are clear. The visualized calf veins are patent. IMPRESSION: There is no sonographic evidence of deep venous thrombosis identified in the right lower extremity. ACT 112: Negative or not required by law. Electronically signed by: Carlos Gonzalez M.D. 11/26/2024 10:19 AM Discharge Plan Visit Data Chief Complaint: Hip Pain Stated Complaint: R HIP PAIN ED Provider: James Brady Discharge Problem: Acute pain of right hip, Inability to bear weight Patient Disposition: Admitted As Inpatient Condition: Fair Discharge Instructions Interventions: ED Discharge Assessment Last Done: 11/26/24 14:03
[2024-11-26] MEDS: MoRPHine SULFATE 4 MG/ML 1 ML CARP\\VIAL IV PRN (08:09)
[2024-11-26] MEDS: ONDANSETRON INJ 2 MG/ML 2 ML VIAL IV STA (08:09)
[2024-11-26 08:32] LABS: Hematocrit (blood only) 46.8 % (42.0-52.0); Hemoglobin 15.5 g/dl (14.0-18.0); Immature Granulocytes # (auto) 0.07 K/uL (0.01-0.20); Immature Granulocytes % (auto) 0.6 %; Mean Corpuscular Hemoglobin 30.2 pg (25.0-34.0); Mean Corpuscular Volume 91.1 fL (80.0-100.0); Platelet Count 326 K/uL (130-400); RDW Standard Deviation 44.2 fL (36.4-46.3); Red Blood Count 5.14 M/uL (4.70-6.10); White Blood Count 11.21 K/ul (4.8-10.8)
--- NOTE | 2024-11-26 08:38 | XRay Report ---
XR chest 1V portable CLINICAL HISTORY: pain COMPARISON STUDY: 09/26/2024 FINDINGS: Heart size and pulmonary vasculature are normal. Inspiration is shallow. No consolidation o r pleural effusion seen. No pneumothorax. IMPRESSION: No acute findings. ACT 112: Negative or not required by law. Electronically signed by: Oskar Villagran M.D. 11/26/2024 8:36 AM
--- NOTE | 2024-11-26 08:38 | XRay Report ---
XR hip RT 2V w pelvis CLINICAL HISTORY: pain COMPARISON: None FINDINGS: Skin fold artifact is present. No fracture or dislocation seen. There are minimal degenera tive changes at the hips. SI joints are unremarkable. There are lower lumbar degenerative changes. IMPRESSION: No acute findings. ACT 112: Negative or not required by law. Electronically signed by: Oskar Villagran M.D. 11/26/2024 8:37 AM
[2024-11-26 08:52] LABS: Alanine Aminotransferase 34.0 U/L (7-52); Albumin Globulin Ratio 1.0 (0.9-2); Alkaline Phosphatase 62.0 U/L (34-104); Anion Gap 8.0 (3-11); Bilirubin,Total 0.5 mg/dl (0.2-1.0); Blood Urea Nitrogen 21.0 mg/dl (6-23); Calcium 9.2 mg/dl (8.6-10.3); Carbon Dioxide 29.0 mmol/L (21-32); Chloride 96.0 mmol/L (98-107); Creatinine Clr Calc Pharmacy 91.3 ml/min; Globulin 4.0 gm/dl (2.5-4.0); Glucose 261.0 mg/dl (70-99(Fasting)); Lipase 16.0 U/L (11-82); Potassium 4.5 mmol/L (3.5-5.1); Sodium 133.0 mmol/L (136-145); Total Protein 7.8 gm/dl (6.0-8.3)
[2024-11-26 09:17] LABS: INR 1.0 (0.9-1.1); Partial Thromboplastin Time 27 Seconds (21-31); Prothrombin Time 11.2 Seconds (9.0-12.0)
[2024-11-26 09:51] LABS: Appearance Urine Clear (Clear); Glucose Urine UA 3+ (Negative)
--- NOTE | 2024-11-26 10:21 | Ultrasound Report ---
ULTRASOUND RIGHT LOWER EXTREMITY VENOUS CLINICAL HISTORY: Right leg pain. Recent DVT. COMPARISON STUDY: Right lower extremity venous ultrasound dated 11/20/2024 TECHNIQUE: Real-time, grayscale, and color Doppler sonography of the deep veins of the right lower ex tremity was performed from the inguinal crease to the calf. Compression and augmentation were utilize d. FINDINGS: There is no sonographic evidence of deep venous thrombosis identified in the right lower ex tremity. The common femoral, superficial femoral, and popliteal veins are patent and normally marina sible. The greater saphenous vein and the profunda femoris vein at the junction with the common femor al vein are clear. The visualized calf veins are patent. IMPRESSION: There is no sonographic evidence of deep venous thrombosis identified in the right lower extremity. ACT 112: Negative or not required by law. Electronically signed by: Carlos Gonzalez M.D. 11/26/2024 10:19 AM
--- NOTE | 2024-11-26 11:15 | History & Physical Report ---
Date of Service November 26, 2024 Assessment & Plan (1) Right hip pain: (2) Ambulatory dysfunction: (3) History of pulmonary embolus (PE): (4) History of deep vein thrombosis (DVT) of lower extremity: (5) Hypertensive urgency: (6) Leukocytosis: Plan Patient is a 79-year-old male with past medical history significant for DMII on Xultophy, diabetic peripheral neuropathy, HLD on Repatha, HTN, CAD s/p stenting, PVD, mild aortic stenosis, unprovoked pulmonary emboli and RLE DVTs diagnosed in September 2024 [on Eliquis], MARKO with CPAP intolerance on O2 HS, rheumatoid arthritis on chronic prednisone therapy, GERD, chronic back pain, past tobacco/alcohol abuse, sensorineural hearing loss of both ears and other problems below who presented to the ED with complaint of right hip pain. #R hip pain #Ambulatory dysfunction R hip/pelvis XR: no acute findings, minimal degenerative changes at hips/lower lumbar degenerative changes RLE venous doppler US: no DVTs identified Placed on 4L NC in ED 2/2 pain-related dyspnea -No hypoxic events, titrated down to 2L NC during my eval --> CXR unremarkable, continue to wean as tolerated Check R hip/femur CT Check lumbar spine CT, re: pain radiating into R lower back region PRN pain control, lidocaine patch application, prashanth Tylenol Bowel regimen Appreciate routine ortho consult PT/OT evals #H/o extensive, unprovoked pulmonary emboli #H/o multiple RLE DVTs Dx'd during previous admission in September 2024 Unremarkable updated RLE venous doppler US as per above Continue Eliquis #HTN urgency BP improved at time of my eval Suspect 2/2 pain Monitor on tele PRN IV hydralazine 5mg for SBP>185 Q4H Continue home BP meds including Norvasc, lisinopril, Toprol-XL #Leukocytosis WBC 11k CXR: no acute findings UA negative Procal negative No s/sx of infection per d/w pt Suspect reactive 2/2 pain Follow CBC trend #HLD #CAD s/p stenting On Repatha as outpt Continue Plavix #Chronic low back pain Continue gabapentin #DMII Hold home regimen SSI protocol while inpt Hgb A1c 7.4% 2wks ago Follow BSG checks ACHS Appreciate glycemic pharm assistance #Rheumatoid arthritis F/w Dr. Strauss Was previously on Rinvoq -Stopped last admission as this med was thought to contribute to DVT/PE formation On chronic prednisone therapy -Pt typically takes 2.5mg BID -However, pt does occasionally take higher doses if RA sx uncontrolled (up to 40mg/day at times) -Will continue 2.5mg BID dosing for now -Check AM cortisol #SNHL of both ears Pt extremely [place], reads lips #Significant stenosis of L external carotid artery --> noted last admission Seen and eval'd by vasc surg last admission -Determined NO INTERVENTION NECESSARY #MARKO Intolerant to CPAP On 2L NC HS --> continue DVT Prophylaxis: Eliquis Disposition: Admit to med/tele Patient seen in collaboration with Dr. Power. Please see addendum. I spent a total of 62 minutes coordinating, documenting, and providing care for this patient excluding time spent in the performance of separately billed se rvices or time spent by another provider/QHP. This included personally reviewing all current laboratories and imaging studies, medical reconciliation, outpatient chart review and discussion with specialists. This chart was completed in part utilizing Speech Voice Recognition Software. Grammatical errors, random word insertions, pronoun errors, and incomplete sentences are an occasional consequence of this system due to software limitations, ambient noise, and hardware issues. Any formal questions or concerns about the content, text, or information contained within the body of this dictation should be directly addressed to the provider for clarification. History of Present Illness Chief Complaint: R hip pain Primary Care Provider: Zev Lemus MD Patient is a 79-year-old male with past medical history significant for DMII on Xultophy, diabetic peripheral neuropathy, HLD on Repatha, HTN, CAD s/p stenting, PVD, mild aortic stenosis, unprovoked pulmonary emboli and RLE DVTs diagnosed in September 2024 [on Eliquis], MARKO with CPAP intolerance on O2 HS, rheumatoid arthritis on chronic prednisone therapy, GERD, chronic back pain, past tobacco/alcohol abuse, sensorineural hearing loss of both ears and other problems below who presented to the ED with complaint of right hip pain. History obtained from the patient, discussion with ED provider and associated chart review. Endorses intractable right hip pain x 1 week. No inciting trauma or injury. Pain initially started in the right hamstring region and radiated up into the right hip where it is now mostly localized with some mild radiation into the right low back region. No fevers. Trialed doses of OxyContin (prescribed >10yr ago s/p right knee replacement) and Percocet (prescribed by PCP last week) at home with minimal relief - states that "dulled the pain mildly." Also trialed Tylenol and ice/heat application without any relief. Describes pain as both achy and sharp in nature. Maintains intact active ROM of right lower extremity. Significant ambulatory difficulty secondary to pain. No overlying erythema noted on right hip or right posterior thigh regions. No open wounds or sores noted. Denies any chest pain, SOB, abdominal pain or bowel/urinary habit changes. Recently diagnosed with multiple pulmonary emboli and right lower extremity DVTs this past September. States he has been compliant with his Eliquis doses. Allergies Allergy/AdvReac Type Severity Reaction Status Date / Time upadacitinib [From [employer]] Allergy Severe Blood clots Unverified 11/26/24 09:08 shellfish derived Allergy Intermediate hives Verified 11/26/24 09:03 methotrexate AdvReac Intermediate NAUSEA/VOMI Verified 11/26/24 09:03 TING oxycodone AdvReac Intermediate NAUSEA/VOMI Verified 11/26/24 09:03 TING Dzmmkvx-MCX-WiT Reductase AdvReac Intermediate myalgias Verified 11/26/24 09:03 Inhibitor [Ichodxe-Dat-Hat Reductase Inhibitor] meperidine AdvReac Mild Nausea Verified 11/26/24 09:03 Home Medications Medication Instructions Recorded Confirmed Type clopidogrel 75 mg tablet (Plavix) 75 mg PO QAM 02/28/18 11/26/24 History lisinopril 10 mg tablet 10 mg PO QPM 02/28/18 11/26/24 History nitroglycerin 0.4 mg sublingual 0.4 mg sublingual DIRECTED PRN 02/28/18 11/26/24 History tablet (Nitrostat) Chest Pain amlodipine 5 mg tablet (Norvasc) 5 mg PO QAM 01/03/20 11/26/24 History prednisone 5 mg tablet 5 mg PO DAILY PRN RA FLARE UPS 01/03/20 11/26/24 History evolocumab 140 mg/mL subcutaneous 140 mg subcut Q14D 10/23/21 11/26/24 History pen injector (Azul Doyle) gabapentin 100 mg capsule 100 mg PO TID 09/26/24 11/26/24 History insulin degludec 100 25 unit subcut QAM 09/26/24 11/26/24 History unit-liraglutide 3.6 mg/mL(3 mL) subcutaneous pen (Xultophy 100/3.6) metoprolol succinate 25 mg 25 mg PO QAM 09/26/24 11/26/24 History tablet,extended release 24 hr nystatin 100,000 unit/gram topical 1 applic topical TID PRN Rash 09/26/24 11/26/24 History powder apixaban 5 mg tablet (Eliquis) 5 mg PO BID #74 tabs 09/28/24 11/26/24 Rx Past Med/Surg History Problem List Ambulatory dysfunction Leukocytosis Hypertensive urgency History of deep vein thrombosis (DVT) of lower extremity History of pulmonary embolus (PE) Right hip pain Leg pain, right (Acute) Stenosis of external carotid artery Acute hypoxemic respiratory failure Pulmonary embolism (Acute) DVT prophylaxis HTN (hypertension) CAD (coronary artery disease) Status post PTCA and stenting of the proximal LAD January 2000. Acute ST elevation [place] in August 2013, PCI with a ZULY to the proximal LAD with residual 60% stenosis of the circumflex noted. Presentation in December 2019 with unstable angina, status post successful PCI of distal RCA, PDA bifurcation with 2 drug-eluting stents Chest pain (Acute) GERD (gastroesophageal reflux disease) Diabetes mellitus, type 2 Rheumatoid arthritis MARKO (obstructive sleep apnea) History of left heart catheterization (LHC) "02/01/00 PTCA and Stent of 90% prox LAD lesion. 50%left circ untreated. 2013 LHC DESx2 to LAD " Medical History Hx of pancreatitis 02/2018 [facility] On anticoagulant therapy DAILY PLAVIX SINCE 1999 On home oxygen therapy HS ONLY Sleep apnea CAN'T TOLERATE CPAP -USES OXYGEN 2L/MIN NC Myocardial Infarction 2013 OR 2014-NO RECENT CHEST PAIN PER SPOUSE Surgical History History of open reduction and internal fixation (ORIF) procedure LEFT ANKLE History of total knee replacement RIGHT History of cardiac cath 2013/2014-1 [facility] History of cataract surgery R/L Family History Brother Heart disorder Sister Heart disorder Social History Smoking Status: Former smoker Second Hand Exposure: No; Do You Dip or Chew Tobacco: No; Hx Alcohol Use: No Hx Substance Use: No Preferred Language: Citizen Of [place] Communication Ability: Effective Armature Winder Required: No Beliefs That Will Affect Care: None marital status: Current Living Situation: Spouse How many Children do You have: 2 Other Information That Helps Us Care for You: No Feels Safe at Home: Yes Safety Concerns: Feels Safe At This Time Assistive Devices: Denture - Upper, Denture - Lower, Glasses, Hearing Aid - Bilateral and Oxygen - at Night Review of Systems Review of Systems: At least ten systems reviewed and negative, except as noted in the HPI. Physical Exam Physical Exam: General: Elderly M, sitting up in bed - favoring L side, pleasant, [place] (reads lips), A&Ox3, appears mildly uncomfortable HEENT: Normocephalic, atraumatic, external ear and nose normal, oropharynx normal Respiratory: Normal respiratory effort, lungs clear to auscultation bilaterally, on 2L NC Cardiovascular: Regular rate/rhythm, normal peripheral pulses, no BLE edema Abdomen/GI: Normal bowel sounds, soft, nontender to palpation in all quadrants Extremities/MSK: No cyanosis/clubbing, RLE strength 5/5 and active ROM intact, TTP over R lateral hip region (no overlying erythema/bruising) Neurologic: No overt focal deficits, CN's II-XI not formally tested but appear grossly intact bilaterally Results & Data Results & Data Vital Signs (Past 12 Hours) Vital Signs Temp Pulse Pulse Resp BP BP Pulse Ox 11/26/24 10:00 70 16 155/79 H 99 11/26/24 08:59 67 16 134/80 98 11/26/24 08:26 75 11/26/24 08:03 95 11/26/24 07:51 17 11/26/24 07:49 36.7 C 85 18 197/111 H 97 O2 Del Method O2 Flow Rate 11/26/24 10:00 Nasal Cannula 4 11/26/24 08:59 Nasal Cannula 4 11/26/24 08:26 11/26/24 08:03 Room Air 11/26/24 07:51 11/26/24 07:49 Laboratory Results Short CBC 11/26/24 Range/Units 08:10 WBC 11.21 H (4.8-10.8) K/ul Hgb 15.5 (14.0-18.0) g/dl Hct 46.8 (42.0-52.0) % Plt Count 326 (130-400) K/uL BMP 11/26/24 08:10 Sodium 133 L Potassium 4.5 Chloride 96 L Carbon Dioxide 29 BUN 21 Creatinine 0.90 Glucose 261 H Calcium 9.2 Liver Function 11/26/24 Range/Units 08:10 Total Bilirubin 0.5 (0.2-1.0) mg/dl AST 17 (13-39) U/L ALT 34 (7-52) U/L Alkaline Phosphatase 62 (34-104) U/L Albumin 3.8 (3.4-5.0) gm/dl Urine 11/26/24 Range/Units 09:36 Urine Color Yellow Urine Appearance Clear (Clear) Urine pH 6.0 (4.5-7.5) Ur Specific [place] 1.023 (1.000-1.030) Urine Protein Negative (Negative) Urine Glucose (UA) 3+ H (Negative) Diagnostic Findings Chest X-Ray 11/26/24 08:03 XR chest 1V portable CLINICAL HISTORY: pain COMPARISON STUDY: 09/26/2024 FINDINGS: Heart size and pulmonary vasculature are normal. Inspiration is shallow. No consolidation or pleural effusion seen. No pneumothorax. IMPRESSION: No acute findings. ACT 112: Negative or not required by law. Electronically signed by: Oskar Villagran M.D. 11/26/2024 8:36 AM Hip/Pelvis X-Ray 11/26/24 08:03 XR hip RT 2V w pelvis CLINICAL HISTORY: pain COMPARISON: None FINDINGS: Skin fold artifact is present. No fracture or dislocation seen. There are minimal degenerative changes at the hips. SI joints are unremarkable. There are lower lumbar degenerative changes. IMPRESSION: No acute findings. ACT 112: Negative or not required by law. Electronically signed by: Oskar Villagran M.D. 11/26/2024 8:37 AM Venous Doppler Study 11/26/24 08:03 ULTRASOUND RIGHT LOWER EXTREMITY VENOUS CLINICAL HISTORY: Right leg pain. Recent DVT. COMPARISON STUDY: Right lower extremity venous ultrasound dated 11/20/2024 TECHNIQUE: Real-time, grayscale, and color Doppler sonography of the deep veins of the right lower extremity was performed from the inguinal crease to the calf. Compression and augmentation were utilized. FINDINGS: There is no sonographic evidence of deep venous thrombosis identified in the right lower extremity. The common femoral, superficial femoral, and popliteal veins are patent and normally compressible. The greater saphenous vein and the profunda femoris vein at the junction with the common femoral vein are clear. The visualized calf veins are patent. IMPRESSION: There is no sonographic evidence of deep venous thrombosis identified in the right lower extremity. ACT 112: Negative or not required by law. Electronically signed by: Carlos Gonzalez M.D. 11/26/2024 10:19 AM Medications Administered Morphine Sulfate (Morphine Sulfate 4 Mg/Ml 1 Ml Carp\\Vial) 4 mg IV Q15M PRN PRN Reason: Pain Stop: 12/10/24 08:02 Last Admin: 11/26/24 11:16 Dose: 4 mg Documented By: Admin: 11/26/24 09:00 Dose: 4 mg Documented By: Admin: 11/26/24 08:09 Dose: 4 mg Documented By: RAYMOND Discontinued Medications Ondansetron HCl (Ondansetron Inj 2 Mg/Ml 2 Ml Vial) 4 mg IV NOW STA Stop: 11/26/24 08:04 Last Admin: 11/26/24 08:09 Dose: 4 mg Documented By: RAYMOND Code Status & VTE Plan Code Status FULL CODE Supervising Physician Co-Signing Physician Notes Attending Addendum: Case reviewed with the advanced practitioner. I have personally performed a history and physical examination on the patient. I have reviewed the advanced practitioner's documentation on the date of service referenced in note, and I agree with, and take responsibility for the plan of care. please refer to her notes for full details patient seen and examined, records reviewed by myself as well on exam, patient seen resting in bed still having 8/10 despite receiving multiple doses of Morphine locates pain on the lateral aspect, R thigh denies back pain no incontinence, leg weakness/numbness pain severe, unable to ambulate no other symptoms VS noted and reviewed oriented x3, not in distress, speaks in sentences with no effort nor accessory muscle use normal rate, regular rhythm, no murmurs clear breath sounds bilaterally non distended, soft, nontender R thigh: (+) point tenderness Lateral aspect trace bipedal edema, no erythema, warmth no neuro deficits all labs, imaging noted and reviewed ASSESSMENT AND PLAN> SEVERE PAIN, RIGHT LATERAL THIGH POSSIBLE TROCHANTERIC BURSITIS r/o Hip Fracture, Femoral Fracture, Lumbar Compression Hip and pelvis xray unrevealing CT L spine, hip, femur ordered Tylenol 1 g q8h prashanth, PRN Oxy, Morphine--> encouraged frequent deep breathing and incentive spirometry useTo prevent hypoxia, hypoventilation Lidoderm patch Ortho consulted PT OT evaluation Recent acute PE, right lower extremity DVT, September 2024 Venous Doppler study of the right lower extremity negative for DVT today Continue Eliquis other diagnoses and plan of care as per advanced practitioner's notes I spent a total of 40 minutes coordinating, documenting, and providing care for this patient, excluding time spent in the performance of separately billed services or time spent by another provider/QHP. Frederick Power MD (6) Leukocytosis Leukocytosis type: unspecified Qualified Code(s): D72.829 - Elevated white blood cell count, unspecified
[2024-11-26] MEDS ORDERED: GLUCOSE 40% GEL 15 GM TUBE PO PRN (12:56)
[2024-11-26] MEDS ORDERED: GLUCAGON FOR INJ 1 MG VIAL SQ PRN (12:56)
[2024-11-26] MEDS ORDERED: DEXTROSE 50% 50 ML SYRINGE IV PRN (12:56)
[2024-11-26] MEDS ORDERED: GLUCOSE 10 TAB/TUBE PO PRN (12:56)
[2024-11-26] MEDS ORDERED: CARBOHYDRATES FOR HYPOGLYCEMIA PO PRN (12:56)
[2024-11-26] MEDS ORDERED: PHARMACY GLYCEMIC MGMT CONSULT PRN (12:56)
--- NOTE | 2024-11-26 13:12 | Electrocardiogram Report ---
Test Reason : Blood Pressure : */* mmHG Vent. Rate : 74 BPM Atrial Rate : 74 BPM P-R Int : 140 ms QRS Dur : 82 ms QT Int : 366 ms P-R-T Axes : * -5 -4 degrees QTcB Int : 406 ms Normal sinus rhythm Inferior infarct , age undetermined Abnormal ECG When compared with ECG of 26-Sep-2024 22:41, Premature atrial complexes are no longer Present Inferior infarct is now Present Nonspecific T wave abnormality now evident in Inferior leads Confirmed by James Laguerre ([id number]) on 11/26/2024 1:11:52 PM Referred By: REFERRED SELF Confirmed By: James Laguerre
[2024-11-26] MEDS ORDERED: MAGNESIUM HYDROXIDE SUSP 30 ML UDC PO PRN ×2 (13:14→14:24)
[2024-11-26] MEDS ORDERED: LIDOCAINE 5% 1 PATCH TD SCH (13:15)
[2024-11-26] MEDS: ACETAMINOPHEN 500 MG TAB PO SCH (13:50)
[2024-11-26] MEDS: LIDOCAINE 5% 1 PATCH TD STA (13:51)
--- NOTE | 2024-11-26 13:55 | Pharmacy Report ---
Pharmacy Glycemic Short Note 2 - Date of Service November 26, 2024 - Glycemic Short BSG Results (Last 24 hours): 11/26/24 08:10 Glucose 261 H OUTPATIENT ANTIDIABETIC REGIMEN: * Xultophy 25 units SQ QAM ASSESSMENT: * 79 year old male admitted with right hip pain. Type 2 diabetic, on chronic prednisone for RA. Pharmacy consulted for glycemic management. Most recent A1c 7.4% per provider notes. Took Xultophy this AM, will start novolog for now. PLAN FOR INPATIENT GLYCEMIC CONTROL: * Hold outpatient oral diabetes medications * Basal insulin * Lantus - reassess tomorrow 11/27 * Bolus insulin * NovoLog per scale ACHS or Q6hrs while NPO * Goal Range: Low 110 mg/dL - High 160 mg/dL * Correction Factor: 20 mg/dL/unit * Nutritional / Prandial insulin per carb ratio of 1 unit per 7 grams CHO consumed
--- NOTE | 2024-11-26 14:07 | CT Scan Report ---
CT lumbar spine wo con CLINICAL HISTORY: R low back pain COMPARISON STUDY: 03/01/2018 FINDINGS: There is mild diffuse lumbar degenerative disc disease and lower lumbar facet degeneration. There is grade 1 anterolisthesis of L4 on 5. Otherwise normal alignment. No lumbar spine fracture se en. There is moderate bilateral neural foraminal narrowing at L5-S1. No severe central canal narrowin g seen. There is likely mild central canal narrowing at L3-4 and L4-5. IMPRESSION: 1. No lumbar spine fracture seen. 2. Lumbar degenerative changes as described. ACT 112: Negative or not required by law. Electronically signed by: Oskar Villagran M.D. 11/26/2024 2:05 PM
--- NOTE | 2024-11-26 14:10 | CT Scan Report ---
CT SCAN OF THE RIGHT HIP WITHOUT IV CONTRAST CLINICAL HISTORY: Right hip pain. COMPARISON STUDY: X-rays of the right hip and pelvis dated 11/26/2024. TECHNIQUE: CT scan of the right hip was performed from the bony pelvis to the femoral shaft. Images are reviewed in the axial, sagittal, and coronal planes. IV contrast was not administered for this ex amination. A dose lowering technique was utilized adhering to the principles of ALARA. FINDINGS: The skeletal structures are osteopenic. There is no evidence of acute fracture involving th e right hip or the visualized right hemipelvis. Mild arthritic change is seen in the right hip. There is no evidence of avascular necrosis of the right femoral head. No lytic or blastic lesion is seen. Mild degenerative change is noted in the right sacroiliac joint. The regional musculature is normal a s visualized. There is mild atherosclerotic calcification of the right iliac and femoral arteries. No right pelvic sidewall or inguinal lymphadenopathy is seen. The prostate gland is enlarged and hetero geneous. The bladder is distended, and the wall appears thickened/trabeculated indicating chronic out let obstruction. IMPRESSION: No acute bony abnormality is seen involving the right hip or the visualized right hemipel vis. ACT 112: Negative or not required by law. Electronically signed by: Carlos Gonzalez M.D. 11/26/2024 2:08 PM
--- NOTE | 2024-11-26 14:19 | CT Scan Report ---
CT femur RT wo con CLINICAL HISTORY: R hip/femur pain COMPARISON STUDY: None FINDINGS: Right knee prosthesis shows no hardware complication. There are mild degenerative changes a t the right hip. No fracture or dislocation seen at the right femur. No evidence of osteomyelitis. No soft tissue hematoma is seen at the right thigh. IMPRESSION: No acute findings seen. ACT 112: Negative or not required by law. Electronically signed by: Oskar Villagran M.D. 11/26/2024 2:17 PM
[2024-11-26] MEDS ORDERED: POLYETHYLENE (MIRALAX) 17 GM PACK PO PRN (14:24)
[2024-11-26] MEDS ORDERED: ONDANSETRON INJ 2 MG/ML 2 ML VIAL IV PRN (14:24)
[2024-11-26] MEDS: INSULIN ASPART PER UNIT CHARGE SC SCH (14:25)
[2024-11-26] MEDS: GABAPENTIN 100 MG CAP PO SCH (15:09)
[2024-11-26] MEDS: MoRPHine SULFATE 2 MG/ML CARP IV PRN (15:14)
[2024-11-26] MEDS: HYDROmorphone INJ 1 MG/ML SYRINGE IV PRN (19:14)
[2024-11-26] MEDS: APIXABAN 5 MG TABLET PO SCH (20:53)
[2024-11-26] MEDS: REMOVE LIDODERM PATCH SCH (20:54)
[2024-11-26] MEDS ORDERED: REMOVE LIDODERM PATCH SCH (21:00)
[2024-11-27 07:34] LABS: Hematocrit (blood only) 44.4 % (42.0-52.0); Hemoglobin 14.6 g/dl (14.0-18.0); Immature Granulocytes # (auto) 0.05 K/uL (0.01-0.20); Immature Granulocytes % (auto) 0.5 %; Mean Corpuscular Hemoglobin 30.4 pg (25.0-34.0); Mean Corpuscular Volume 92.3 fL (80.0-100.0); Platelet Count 310 K/uL (130-400); RDW Standard Deviation 44.8 fL (36.4-46.3); Red Blood Count 4.81 M/uL (4.70-6.10); White Blood Count 10.27 K/ul (4.8-10.8)
[2024-11-27 08:01] LABS: Anion Gap 6.0 (3-11); Blood Urea Nitrogen 18.0 mg/dl (6-23); Calcium 8.9 mg/dl (8.6-10.3); Carbon Dioxide 31.0 mmol/L (21-32); Chloride 98.0 mmol/L (98-107); Creatinine Clr Calc Pharmacy 94.9 ml/min; Glucose 136.0 mg/dl (70-99(Fasting)); Magnesium 2.2 mg/dl (1.7-2.4); Potassium 4.2 mmol/L (3.5-5.1); Sodium 135.0 mmol/L (136-145)
[2024-11-27] MEDS: LIDOCAINE 5% 1 PATCH TD SCH (08:05)
[2024-11-27] MEDS: CLOPIDOGREL BISULFATE 75 MG TAB PO SCH (08:05)
[2024-11-27] MEDS: METOPROLOL SUCC 25MG EXT REL TAB PO SCH (08:05)
[2024-11-27] MEDS: POLYETHYLENE (MIRALAX) 17 GM PACK PO SCH (08:11)
[2024-11-27] MEDS: LANTUS PER UNIT CHARGE SC SCH (09:46)
[2024-11-27] MEDS: ACETAMINOPHEN 1,000 MG/100 ML VIAL IV STA (09:49)
[2024-11-27] MEDS: HYDROmorphone INJ 1 MG/ML SYRINGE IV PRN (09:53)
[2024-11-27] MEDS: DICLOFENAC SOD 1% GEL 100 GM TUBE EXT SCH (12:43)
--- NOTE | 2024-11-27 14:32 | Hospitalist Progress Note ---
Date of Service November 27, 2024 Assessment & Plan (1) Right hip pain: (2) Ambulatory dysfunction: (3) History of pulmonary embolus (PE): (4) History of deep vein thrombosis (DVT) of lower extremity: (5) Hypertensive urgency: (6) Leukocytosis: Plan 79-year-old male with past medical history significant for DMII on Xultophy, diabetic peripheral neuropathy, HLD on Repatha, HTN, CAD s/p stenting, PVD, mild aortic stenosis, unprovoked pulmonary emboli and RLE DVTs diagnosed in September 2024 [on Eliquis], MARKO with CPAP intolerance on O2 HS, rheumatoid arthritis on chronic prednisone therapy, GERD, chronic back pain, past tobacco/alcohol abuse, sensorineural hearing loss of both ears and other problems below who presented to the ED with complaint of right hip pain for about a week. #R hip pain #Ambulatory dysfunction #hypoxia: likely iso severe pain, NC O2 as needed. CXR unremarkable R hip/pelvis XR: no acute findings, minimal degenerative changes at hips/lower lumbar degenerative changes RLE venous doppler US: no DVTs identified R hip/femur CT - no acute findings. Lumbar spine CT: Moderate bilateral neuroforaminal narrowing at L5-S1, no severe central canal narrowing. Continue with pain regimen, and bowel regimen. warm compression to right hip. Continue with Tylenol, oxy, hydromorphone, morphine, diclofenac gel, lidocaine patch. Cannot use systemic anesthetic given Eliquis use. Pain management if no effective pain control Orthopedics consulted, await recommendation. PT/OT eval Leukocytosis: Likely reactive in the setting of acute pain. CXR and UA negative. follow bl cx. Procalcitonin negative. No signs symptoms of infection. Resolved. Other chronic medical conditions: Continue with/resume home meds as and when able. Extensive unprovoked pulmonary emboli/multiple RLE DVTs: Unremarkable RLE venous Doppler. Continue home Eliquis. Hypertension: Continue home Norvasc, lisinopril, Toprol-XL. HLD/CAD status post stenting: Continue home Plavix. Continue Repatha as prior. Chronic low back pain: Continue home gabapentin T2DM: Sliding scale insulin while inpatient. A1c of 7.42 weeks ago [employer]. Rheumatoid arthritis: Follows Dr. Jackman. Was previously on Rinvoq. Stopped last admission as this med was thought to contribute to DVT/PE formation . On chronic prednisone therapy -Pt typically takes 2.5mg BID, -However, pt does occasionally take higher doses if RA sx uncontrolled (up to 40mg/day at times), -Will continue 2.5mg BID dosing for now SNHL of both ears: Pt extremely [place], reads lips Significant stenosis of L external carotid artery --> noted last admission. Seen and eval'd by vasc surg last admission. Determined NO INTERVENTION NECESSARY MARKO: Intolerant to CPAP. Continue 2 L NC at bedtime. DVT prophylaxis: Patient on Eliquis Disposition: Ortho eval pending, PT/OT Admission and Anticipated Discharge Date Admission Date: November 26, 2024 Subjective Patient was seen and examined at bedside. Patient was lying in bed, on room air, in mild distress due to pain right hip. He was again seen later in the morning when he was sweating likely secondary to pain, troponin came back negative, pt w/ no chest pain or sob, sending blood culture to rule out infection. Temperature send vitals were stable at this time. Patient's was updated at bedside during this time. Physical Exam Physical Exam: General: Elderly M, lying in bed - favoring L side, pleasant, [place] (reads lips), A&Ox3, appears mildly uncomfortable HEENT: Normocephalic, atraumatic, external ear and nose normal, oropharynx normal Respiratory: Normal respiratory effort, lungs clear to auscultation bilaterally, on 2L NC Cardiovascular: Regular rate/rhythm, normal peripheral pulses, no BLE edema Abdomen/GI: Normal bowel sounds, soft, nontender to palpation in all quadrants Extremities/MSK: No cyanosis/clubbing, RLE strength 5/5 and active ROM intact, TTP over R lateral hip region (no overlying erythema/bruising/warmth) Neurologic: No overt focal deficits, CN's II-XI not formally tested but appear grossly intact bilaterally Results & Data Results & Data Vital Signs (Past 12 Hours) Vital Signs Temp Pulse Pulse Resp BP Pulse Ox O2 Del Method 11/27/24 12:07 36.4 C L 104 H 19 112/63 91 Room Air 11/27/24 07:45 36.5 C 96 H 18 117/69 96 Nasal Cannula 11/27/24 07:00 88 11/27/24 07:00 Room Air 11/27/24 04:54 36.4 C L 84 16 177/97 H 96 Nasal Cannula O2 Flow Rate 11/27/24 12:07 11/27/24 07:45 2 11/27/24 07:00 11/27/24 07:00 11/27/24 04:54 (6) Leukocytosis Leukocytosis type: unspecified Qualified Code(s): D72.829 - Elevated white blood cell count, unspecified
--- NOTE | 2024-11-27 15:44 | Orthopedic Consultation ---
Date of Service November 27, 2024 Assessment & Plan (1) Greater trochanteric bursitis of right hip: * Case/imaging reviewed and discussed with Dr Choi * Findings consistent with GT bursitis, possible component of underlying lumbar pathology * Recommend cortisone injection to bursa, see procedure note * PT/OT eval, activity as tolerated * Pain control, ice, OTC medication * Disposition: TBD * Daily treatment: Physical Therapy/ Occupational Therapy per protocol * Weight bearing status: WBAT * Pain control * Remainder care per primary team * Will continue to follow History of Present Illness Reason for Consultation: . Right hip pain Requesting Physician: . Attending Physician: Shell Martinez MD .Patient is a 79y/o male with right hip pain. PMH including recent DVT on Lovenox, NC, carotid artery stenosis, HTN, CAD, DM2, MARKO. Presents to hospital with significant right lateral hip pain. Known lumbar spine issues, sees for management, discussed injections in the past. Additionally, acute onset of significant lateral right hip pain that radiates to some degree into the thigh. Difficulty walking, putting weight on that side, direct palpation. Current workup including x-ray and CT right hip demonstrating minimal degenerative changes, no effusion, no other bony abnormality. Admitted to hospitalist team secondary to ambulatory dysfunction.. Orthopedics consulted for management recommendations. At time of exam patient laying comfortably in bed, no acute distress. Reports moderate right hip pain at rest that increases significantly with attempted movement, weightbearing, or direct palpation to the area. Denies tingling or numbness of the right lower extremity. Denies pain in the low back, buttock, groin, distal thigh. Typically no assistive device at the baseline. Allergies Allergy/AdvReac Type Severity Reaction Status Date / Time upadacitinib [From Zulahoovoq] Allergy Severe Blood clots Unverified 11/26/24 09:08 shellfish derived Allergy Intermediate hives Verified 11/26/24 09:03 methotrexate AdvReac Intermediate NAUSEA/VOMI Verified 11/26/24 09:03 TING oxycodone AdvReac Intermediate NAUSEA/VOMI Verified 11/26/24 09:03 TING Kaumjeh-XEH-HqC Reductase AdvReac Intermediate myalgias Verified 11/26/24 09:03 Inhibitor [Gsizbdx-Lip-Rzg Reductase Inhibitor] meperidine AdvReac Mild Nausea Verified 11/26/24 09:03 Home Medications Medication Instructions Recorded Confirmed Type clopidogrel 75 mg tablet (Plavix) 75 mg PO QAM 02/28/18 11/26/24 History lisinopril 10 mg tablet 10 mg PO QPM 02/28/18 11/26/24 History nitroglycerin 0.4 mg sublingual 0.4 mg sublingual DIRECTED PRN 02/28/18 11/26/24 History tablet (Nitrostat) Chest Pain amlodipine 5 mg tablet (Norvasc) 5 mg PO QAM 01/03/20 11/26/24 History prednisone 5 mg tablet 5 mg PO DAILY PRN RA FLARE UPS 01/03/20 11/26/24 History evolocumab 140 mg/mL subcutaneous 140 mg subcut Q14D 10/23/21 11/26/24 History pen injector (Azul Doyle) gabapentin 100 mg capsule 100 mg PO TID 09/26/24 11/26/24 History insulin degludec 100 25 unit subcut QAM 09/26/24 11/26/24 History unit-liraglutide 3.6 mg/mL(3 mL) subcutaneous pen (Xultophy 100/3.6) metoprolol succinate 25 mg 25 mg PO QAM 09/26/24 11/26/24 History tablet,extended release 24 hr nystatin 100,000 unit/gram topical 1 applic topical TID PRN Rash 09/26/24 History powder apixaban 5 mg tablet (Eliquis) 5 mg PO BID #74 tabs 09/28/24 11/26/24 Rx Past Med/Surg History Problem List (Updated 11/27/24 @ 15:42 by Howard Schwarz PA-C) Greater trochanteric bursitis of right hip Inability to bear weight (Acute) Acute pain of right hip (Acute) Ambulatory dysfunction Leukocytosis Hypertensive urgency History of deep vein thrombosis (DVT) of lower extremity History of pulmonary embolus (PE) Right hip pain Leg pain, right (Acute) Stenosis of external carotid artery Acute hypoxemic respiratory failure Pulmonary embolism (Acute) DVT prophylaxis HTN (hypertension) CAD (coronary artery disease) Status post PTCA and stenting of the proximal LAD January 2000. Acute ST elevation NC in August 2013, PCI with a ZULY to the proximal LAD with residual 60% stenosis of the circumflex noted. Presentation in December 2019 with unstable angina, status post successful PCI of distal RCA, PDA bifurcation with 2 drug-eluting stents Chest pain (Acute) GERD (gastroesophageal reflux disease) Diabetes mellitus, type 2 Rheumatoid arthritis MARKO (obstructive sleep apnea) History of left heart catheterization (LHC) "02/01/00 PTCA and Stent of 90% prox LAD lesion. 50%left circ untreated. 2013 LHC DESx2 to LAD " Medical History Hx of pancreatitis 02/2018 [facility] On anticoagulant therapy DAILY PLAVIX SINCE 1999 On home oxygen therapy HS ONLY Sleep apnea CAN'T TOLERATE CPAP -USES OXYGEN 2L/MIN NC Myocardial Infarction 2013 OR 2014-NO RECENT CHEST PAIN PER SPOUSE Surgical History History of open reduction and internal fixation (ORIF) procedure LEFT ANKLE History of total knee replacement RIGHT History of cardiac cath -1 STENT-[facility] History of cataract surgery R/L Family History Brother Heart disorder Sister Heart disorder Social History Smoking Status: Former smoker Second Hand Exposure: No; Do You Dip or Chew Tobacco: No; Hx Alcohol Use: No Hx Substance Use: No Preferred Language: Korean Communication Ability: Effective Case Investigator Required: No Beliefs That Will Affect Care: None marital status: Current Living Situation: Spouse How many Children do You have: 2 Other Information That Helps Us Care for You: No Feels Safe at Home: Yes Safety Concerns: Feels Safe At This Time Assistive Devices: Oxygen - Continuous and Walker Review of Systems All systems reviewed & are unremarkable except as noted in HPI & below. Physical Exam . * General: Alert and oriented, no acute distress * Constitutional: well-developed, well-nourished. * Respiratory: Normal respiratory effort, no distress * Gastrointestinal: No tenderness to palpation, no rigidity or guarding. * Skin: No rash or lesion. * Neurologic: Grossly normal * Musculoskeletal: Right lower extremity with no obvious deformities or overlying skin changes. TTP at the greater trochanteric bursa and local lateral thigh region. Otherwise no specific tenderness of the lumbar spine, right gluteal region, right proximal/distal thigh, remainder of lower leg. ROM hip flexion, IR/ER, abduction with no pain. AROM for/ankle intact. Sensation intact plantar/dorsal foot. Brisk capillary refill. Results & Data Results & Data Laboratory Results . Diagnostic Findings . PG Care Time/CCT Total # of Minutes Spent Total Time Spent with Patient: Total time spent is greater than 50% in coordination of care (as documented) at patient's floor/unit and/or counseling patient: [place] [address] IN/OBS CONSULT LVL 3,45M Patient Type New Diagnoses Greater trochanteric bursitis of right hip M70.61
--- NOTE | 2024-11-27 15:45 | Procedure Note ---
Procedure Note Date of Service November 27, 2024 Procedure: Right GT bursa injection Indication: Right greater trochanteric bursitis Procedure: After explanation of the x-ray findings and the diagnosis, prognosis and treatment options for greater trochanteric bursitis, I explained the purpose of GT bursa injection to the patient. The patient was agreeable to proceed. We timed out to confirm procedure, site, laterality. Anatomical landmarks palpated and identified. Procedure site cleaned with Betadine swab followed by alcohol swab. Using 22-gauge needle, 4 cc of 1% lidocaine and 1 cc Kenalog was injected using sterile technique into the GT bursa. Needle was then removed and sterile dressing was applied. Patient tolerated procedure well. No immediate complications. Plan: * Activity as tolerated * PT/OT * Ice, OTC pain control Coding Additional Codes Date of Service (PG.SURGERY)
[2024-11-28 06:48] LABS: Hematocrit (blood only) 44.7 % (42.0-52.0); Hemoglobin 14.6 g/dl (14.0-18.0); Mean Corpuscular Hemoglobin 30.2 pg (25.0-34.0); Mean Corpuscular Volume 92.4 fL (80.0-100.0); Platelet Count 274 K/uL (130-400); RDW Standard Deviation 45.2 fL (36.4-46.3); Red Blood Count 4.84 M/uL (4.70-6.10); White Blood Count 7.95 K/ul (4.8-10.8)
[2024-11-28 07:07] LABS: Anion Gap 5.0 (3-11); Blood Urea Nitrogen 19.0 mg/dl (6-23); Calcium 8.8 mg/dl (8.6-10.3); Carbon Dioxide 32.0 mmol/L (21-32); Chloride 97.0 mmol/L (98-107); Creatinine Clr Calc Pharmacy 89.0 ml/min; Glucose 180.0 mg/dl (70-99(Fasting)); Magnesium 2.1 mg/dl (1.7-2.4); Potassium 4.7 mmol/L (3.5-5.1); Sodium 134.0 mmol/L (136-145)
[2024-11-28] MEDS: LIDOCAINE 2%/EPINEPHRINE 1:200,000 20 ML PF INFIL ONE (07:20)
[2024-11-28] MEDS: TRIAMCINOLONE ACET 40 MG/ML VIAL IA ONE (07:21)
[2024-11-28] MEDS: LANTUS PER UNIT CHARGE SC SCH (09:00)
--- NOTE | 2024-11-28 09:03 | Orthopedic Progress Note ---
Date of Service November 28, 2024 Assessment & Plan (1) Greater trochanteric bursitis of right hip: * Continue Current Treatment * S/p steroid injection, improved pain. * Recommend continued PT and mobilization. OTC pain control measures. * Disposition: TBD * Daily treatment: Physical Therapy/ Occupational Therapy per protocol * Weight bearing status: WBAT * Continue to monitor for ABLA * Office/hospital f/u 2 weeks for progress check and staple/suture removal * Remainder care per primary team * Stable for discharge from ortho standpoint, further planning per primary team Subjective .Active Problems: Right GT bursitis 79 y/o male with right GT bursitis s/p cortisone injection 11/27. Doing well overall, improved pain after injection. Denies fever/chills, chest pain/SOB, nausea/vomiting. Otherwise no complaints. Review of Systems All systems reviewed & are unremarkable except as noted in HPI & below. Physical Exam . * General: Alert and oriented, no acute distress * Constitutional: well-developed, well-nourished. * Respiratory: Normal respiratory effort, no distress * Gastrointestinal: No tenderness to palpation, no rigidity or guarding. * Skin: No rash or lesion. * Neurologic: Grossly normal * Musculoskeletal: No overlying skin changes at right hip. Mild TTP GT bursa, otherwise no tenderness of right thigh or lower leg. ROM hip flexion, IR/ER w ithout pain. Sensation intact plantar/dorsal foot. Brisk capillary refill. Results & Data Results & Data Laboratory Results . Diagnostic Findings . PG Care Time/CCT Total # of Minutes Spent Total Time Spent with Patient: Total time spent is greater than 50% in coordination of care (as documented) at patient's floor/unit and/or counseling patient: Coding Level of Care Code 86044 SUB INP/OBS CARE 06/09MIN Diagnoses Greater trochanteric bursitis of right hip M70.61
--- NOTE | 2024-11-28 13:38 | Hospitalist Progress Note ---
Date of Service November 28, 2024 Assessment & Plan (1) Right hip pain: (2) Ambulatory dysfunction: (3) History of pulmonary embolus (PE): (4) History of deep vein thrombosis (DVT) of lower extremity: (5) Hypertensive urgency: (6) Leukocytosis: Plan 79-year-old male with past medical history significant for DMII on Xultophy, diabetic peripheral neuropathy, HLD on Repatha, HTN, CAD s/p stenting, PVD, mild aortic stenosis, unprovoked pulmonary emboli and RLE DVTs diagnosed in September 2024 [on Eliquis], MARKO with CPAP intolerance on O2 HS, rheumatoid arthritis on chronic prednisone therapy, GERD, chronic back pain, past tobacco/alcohol abuse, sensorineural hearing loss of both ears and other problems below who presented to the ED with complaint of right hip pain for about a week. #R hip pain #Ambulatory dysfunction #hypoxia: likely iso severe pain, NC O2 as needed. CXR unremarkable R hip/pelvis XR: no acute findings, minimal degenerative changes at hips/lower lumbar degenerative changes RLE venous doppler US: no DVTs identified R hip/femur CT - no acute findings. Lumbar spine CT: Moderate bilateral neuroforaminal narrowing at L5-S1, no severe central canal narrowing. Continue with pain regimen, and bowel regimen. warm compression to right hip. Continue with Tylenol, oxy, hydromorphone, morphine, diclofenac gel, lidocaine patch. Cannot use systemic NSAID given Eliquis use. Orthopedics consulted, s/p Right GT bursa injection 11/27 PT/OT eval. Leukocytosis: Likely reactive in the setting of acute pain. CXR and UA negative. follow bl cx. Procalcitonin negative. No signs symptoms of infection. Resolved. Other chronic medical conditions: Continue with/resume home meds as and when able. Extensive unprovoked pulmonary emboli/multiple RLE DVTs: Unremarkable RLE venous Doppler. Continue home Eliquis. Hypertension: Continue home Norvasc, lisinopril, Toprol-XL. HLD/CAD status post stenting: Continue home Plavix. Continue Repatha as prior. Chronic low back pain: Continue home gabapentin T2DM: Sliding scale insulin while inpatient. A1c of 7.42 weeks ago [employer]. Rheumatoid arthritis: Follows Dr. Jackman. Was previously on Rinvoq. Stopped last admission as this med was thought to contribute to DVT/PE formation . On chronic prednisone therapy -Pt typically takes 2.5mg BID, -However, pt does occasionally take higher doses if RA sx uncontrolled (up to 40mg/day at times), -Will continue 2.5mg BID dosing for now SNHL of both ears: Pt extremely [place], reads lips Significant stenosis of L external carotid artery --> noted last admission. Seen and eval'd by vasc surg last admission. Determined NO INTERVENTION NECESSARY MARKO: Intolerant to CPAP. Continue 2 L NC at bedtime. DVT prophylaxis: Patient on Eliquis Disposition: Ortho eval pending, PT/OT Admission and Anticipated Discharge Date Admission Date: November 26, 2024 Subjective Patient was seen and examined at bedside. Patient was lying in bed, on room air, NAD Reports Rt hip pain improvement after Right GT bursa injection 11/27. Denies fever/chills/cough. Reports eating ok and moving BM at his basline (2 d ago) (moves every 2-3 days). Physical Exam Physical Exam: General: Elderly M, lying in bed, pleasant, [place] (reads lips), A&Ox3. HEENT: Normocephalic, atraumatic, external ear and nose normal, oropharynx normal Respiratory: Normal respiratory effort, lungs clear to auscultation bilaterally, on 2L NC Cardiovascular: Regular rate/rhythm, normal peripheral pulses, no BLE edema Abdomen/GI: Normal bowel sounds, soft, nontender to palpation in all quadrants Extremities/MSK: No cyanosis/clubbing, RLE strength 5/5 and active ROM intact, TTP over R lateral hip region (no overlying erythema/bruising/warmth) improving. Neurologic: No overt focal deficits, CN's II-XI not formally tested but appear grossly intact bilaterally Results & Data Results & Data Vital Signs (Past 12 Hours) Vital Signs Temp Pulse Pulse Resp BP BP Pulse Ox 11/28/24 11:23 36.6 C 78 18 116/73 97 11/28/24 09:49 11/28/24 08:21 36.6 C 78 18 117/77 97 11/28/24 07:23 74 11/28/24 03:56 36.6 C 76 16 113/72 98 O2 Del Method O2 Flow Rate 11/28/24 11:23 Nasal Cannula 2 11/28/24 09:49 Nasal Cannula 2 11/28/24 08:21 Nasal Cannula 2 11/28/24 07:23 11/28/24 03:56 Nasal Cannula (6) Leukocytosis Leukocytosis type: unspecified Qualified Code(s): D72.829 - Elevated white blood cell count, unspecified
--- NOTE | 2024-11-28 14:30 | Pharmacy Report ---
Pharmacy Glycemic Short Note 2 - Date of Service November 28, 2024 - Glycemic Short BSG Results (Last 24 hours): 11/27/24 11/27/24 11/28/24 17:01 20:19 06:25 Glucose 180 H POC Glucose 162 H 231 H 11/28/24 11/28/24 07:54 12:14 Glucose POC Glucose 155 H 153 H OUTPATIENT ANTIDIABETIC REGIMEN: * Xultophy 25 units SQ QAM ASSESSMENT: 11/28 * Seth received a total of 28 units of insulin yesterday (10 units were basal and 18 units were bolus). BSGs were [phone]/dL). * Fasting BSG was 155mg/dL this morning. Lantus was increased to 15 units and CR was tightened for better prandial glucose control. 11/26 * 79 year old male admitted with right hip pain. Type 2 diabetic, on chronic prednisone for RA. Pharmacy consulted for glycemic management. Most recent A1c 7.4% per provider notes. Took Ashlyn this AM, will start novolog for now. PLAN FOR INPATIENT GLYCEMIC CONTROL: * Hold outpatient diabetes medications * Basal insulin * Lantus 15 units SQ daily * Bolus insulin * NovoLog per scale ACHS or Q6hrs while NPO * Goal Range: Low 110 mg/dL - High 160 mg/dL * Correction Factor: 30 mg/dL/unit * Nutritional / Prandial insulin per carb ratio of 1 unit per 9 grams CHO consumed
[2024-11-28] MEDS ORDERED: SODIUM CHLORIDE 0.9% 1,000 ML IV SCH (22:15)
--- NOTE | 2024-11-29 08:45 | Pharmacy Report ---
Pharmacy Glycemic Short Note 2 - Date of Service November 29, 2024 - Glycemic Short BSG Results (Last 24 hours): 11/28/24 11/28/24 11/28/24 12:14 17:20 20:20 POC Glucose 153 H 152 H 223 H 11/29/24 08:16 POC Glucose 248 H OUTPATIENT ANTIDIABETIC REGIMEN: * Xultophy 25 units SQ QAM ASSESSMENT: 11/29 * Seth received 37 units of insulin yesterday with decent glycemic control * 15 units Lantus + 22 units bolus * BSGs: 155, 153, 152, 223 mg/dL * Fasting BSG of 248 mg/dL this AM. Confirmed with RN that value represents true fasting BSG. Suspect significant increase in fasting due to multiple days of reduced long acting insulin. Will increase Lantus to nearly patient's home dose. * Post prandial BSGs mostly at goal. HS tends to be highest reading of the day. Hoping to see some improvement with significant increase in Lantus dose. Will slightly tighten correction factor. 11/28 * Seth received a total of 28 units of insulin yesterday (10 units were basal and 18 units were bolus). BSGs were [phone]/dL). * Fasting BSG was 155mg/dL this morning. Lantus was increased to 15 units and CR was tightened for better prandial glucose control. 11/26 * 79 year old male admitted with right hip pain. Type 2 diabetic, on chronic prednisone for RA. Pharmacy consulted for glycemic management. Most recent A1c 7.4% per provider notes. Took Xultophtodd this AM, will start novolog for now. PLAN FOR INPATIENT GLYCEMIC CONTROL: * Hold outpatient diabetes medications * Basal insulin * Lantus 22 units SQ daily * Bolus insulin * NovoLog per scale ACHS or Q6hrs while NPO * Goal Range: Low 110 mg/dL - High 160 mg/dL * Correction Factor: 25 mg/dL/unit * Nutritional / Prandial insulin per carb ratio of 1 unit per 9 grams CHO consumed
[2024-11-29] MEDS: LANTUS PER UNIT CHARGE SC SCH (09:06)
[2024-11-29 09:27] LABS: Hematocrit (blood only) 44.4 % (42.0-52.0); Hemoglobin 14.4 g/dl (14.0-18.0); Mean Corpuscular Hemoglobin 30.3 pg (25.0-34.0); Mean Corpuscular Volume 93.3 fL (80.0-100.0); Platelet Count 271 K/uL (130-400); RDW Standard Deviation 45.2 fL (36.4-46.3); Red Blood Count 4.76 M/uL (4.70-6.10); White Blood Count 8.16 K/ul (4.8-10.8)
[2024-11-29 09:44] LABS: Anion Gap 6.0 (3-11); Blood Urea Nitrogen 18.0 mg/dl (6-23); Calcium 8.7 mg/dl (8.6-10.3); Carbon Dioxide 31.0 mmol/L (21-32); Chloride 98.0 mmol/L (98-107); Creatinine Clr Calc Pharmacy 96.3 ml/min; Glucose 242.0 mg/dl (70-99(Fasting)); Potassium 4.3 mmol/L (3.5-5.1); Sodium 135.0 mmol/L (136-145)
[2024-11-29 11:31] VITALS: BP 111/69; RESP 18; TEMP 97.5; O2SAT 96
--- NOTE | 2024-11-29 12:35 | Discharge Summary ---
Date of Service November 29, 2024 Admission HPI Per Admitting Provider Patient is a 79-year-old male with past medical history significant for DMII on Xultophy, diabetic peripheral neuropathy, HLD on Repatha, HTN, CAD s/p stenting, PVD, mild aortic stenosis, unprovoked pulmonary emboli and RLE DVTs diagnosed in September 2024 [on Eliquis], MARKO with CPAP intolerance on O2 HS, rheumatoid arthritis on chronic prednisone therapy, GERD, chronic back pain, past tobacco/alcohol abuse, sensorineural hearing loss of both ears and other problems below who presented to the ED with complaint of right hip pain. History obtained from the patient, discussion with ED provider and associated chart review. Endorses intractable right hip pain x 1 week. No inciting trauma or injury. Pain initially started in the right hamstring region and radiated up into the right hip where it is now mostly localized with some mild radiation into the right low back region. No fevers. Trialed doses of OxyContin (prescribed >10yr ago s/p right knee replacement) and Percocet (prescribed by PCP last week) at home with minimal relief - states that "dulled the pain mildly." Also trialed Tylenol and ice/heat application without any relief. Describes pain as both achy and sharp in nature. Maintains intact active ROM of right lower extremity. Significant ambulatory difficulty secondary to pain. No overlying erythema noted on right hip or right posterior thigh regions. No open wounds or sores noted. Denies any chest pain, SOB, abdominal pain or bowel/urinary habit changes. Recently diagnosed with multiple pulmonary emboli and right lower extremity DVTs this past September. States he has been compliant with his Eliquis doses. Admission Exam Per Admitting Provider General: Elderly M, sitting up in bed - favoring L side, pleasant, PAUMA (reads lips), A&Ox3, appears mildly uncomfortable HEENT: Normocephalic, atraumatic, external ear and nose normal, oropharynx normal Respiratory: Normal respiratory effort, lungs clear to auscultation bilaterally, on 2L NC Cardiovascular: Regular rate/rhythm, normal peripheral pulses, no BLE edema Abdomen/GI: Normal bowel sounds, soft, nontender to palpation in all quadrants Extremities/MSK: No cyanosis/clubbing, RLE strength 5/5 and active ROM intact, TTP over R lateral hip region (no overlying erythema/bruising) Neurologic: No overt focal deficits, CN's II-XI not formally tested but appear grossly intact bilaterally Principal Diagnosis #R hip pain/Rt GT bursitis #Ambulatory dysfunction #hypoxia Discharge Exam General: Elderly M, lying in bed, pleasant, PAUMA (reads lips), A&Ox3. HEENT: Normocephalic, atraumatic, external ear and nose normal, oropharynx normal Respiratory: Normal respiratory effort, lungs clear to auscultation bilaterally, on 2L NC Cardiovascular: Regular rate/rhythm, normal peripheral pulses, no BLE edema Abdomen/GI: Normal bowel sounds, soft, nontender to palpation in all quadrants Extremities/MSK: No cyanosis/clubbing, RLE strength 5/5 and active ROM intact, TTP over R lateral hip region (no overlying erythema/bruising/warmth) improving. Neurologic: No overt focal deficits, CN's II-XI not formally tested but appear grossly intact bilaterally Discharge Data Allergies Allergy/AdvReac Type Severity Reaction Status Date / Time upadacitinib [From [employer]] Allergy Severe Blood clots Unverified 11/26/24 09:08 shellfish derived Allergy Intermediate hives Verified 11/26/24 09:03 methotrexate AdvReac Intermediate NAUSEA/VOMI Verified 11/26/24 09:03 TING oxycodone AdvReac Intermediate NAUSEA/VOMI Verified 11/26/24 09:03 TING Snzzfjd-IDL-WlH Reductase AdvReac Intermediate myalgias Verified 11/26/24 09:03 Inhibitor [Wjiidrw-Zyx-Afa Reductase Inhibitor] meperidine AdvReac Mild Nausea Verified 11/26/24 09:03 Consultations 11/26/24 11:14 ED Decision to Admit Stat 11/26/24 12:51 Consult Orthopedic Surgery Routine Ordered Studies 11/26/24 08:03 US venous doppler LE RT Stat 11/26/24 12:49 CT femur RT wo con Stat CT hip RT wo con Stat CT lumbar spine wo con Stat Hospital Course (1) Right hip pain: (2) Ambulatory dysfunction: (3) History of pulmonary embolus (PE): (4) History of deep vein thrombosis (DVT) of lower extremity: (5) Hypertensive urgency: (6) Leukocytosis: Plan 79-year-old male with past medical history significant for DMII on Xultophy, diabetic peripheral neuropathy, HLD on Repatha, HTN, CAD s/p stenting, PVD, mild aortic stenosis, unprovoked pulmonary emboli and RLE DVTs diagnosed in September 2024 [on Eliquis], MARKO with CPAP intolerance on O2 HS, rheumatoid arthritis on chronic prednisone therapy, GERD, chronic back pain, past tobacco/alcohol abuse, sensorineural hearing loss of both ears and other problems below who presented to the ED with complaint of right hip pain for about a week. #R hip pain #Ambulatory dysfunction #hypoxia: likely iso severe pain, NC O2 as needed. CXR unremarkable R hip/pelvis XR: no acute findings, minimal degenerative changes at hips/lower lumbar degenerative changes RLE venous doppler US: no DVTs identified R hip/femur CT - no acute findings. Lumbar spine CT: Moderate bilateral neuroforaminal narrowing at L5-S1, no severe central canal narrowing. Continue with pain regimen, and bowel regimen. warm compression to right hip. Continue with Tylenol, percocet, diclofenac gel on dc, f/u ortho in 1-2 weeks. Cannot use systemic NSAID given Eliquis use, pt has been made aware. Orthopedics consulted, s/p Right GT bursa injection 11/27 PT/OT eval. Leukocytosis: Likely reactive in the setting of acute pain. CXR and UA negative. follow bl cx. Procalcitonin negative. No signs symptoms of infection. Resolved. Other chronic medical conditions: Continue with/resume home meds as and when able. Extensive unprovoked pulmonary emboli/multiple RLE DVTs: Unremarkable RLE venous Doppler. Continue home Eliquis. Hypertension: Continue home Norvasc, lisinopril, Toprol-XL. HLD/CAD status post stenting: Continue home Plavix. Continue Repatha as prior. Chronic low back pain: Continue home gabapentin T2DM: Sliding scale insulin while inpatient. A1c of 7.42 weeks ago [employer]. Rheumatoid arthritis: Follows Dr. Jackman. Was previously on Rinvoq. Stopped last admission as this med was thought to contribute to DVT/PE formation . On chronic prednisone therapy -Pt typically takes 2.5mg BID, -However, pt does occasionally take higher doses if RA sx uncontrolled (up to 40mg/day at times), -Will continue 2.5mg BID dosing for now SNHL of both ears: Pt extremely PAUMA, reads lips Significant stenosis of L external carotid artery --> noted last admission. Seen and eval'd by vasc surg last admission. Determined NO INTERVENTION N ECESSARY MARKO: Intolerant to CPAP. Continue 2 L NC at bedtime. DVT prophylaxis: Patient on Eliquis Disposition: Ortho eval pending, PT/OT Patient feels better today/reports pain controlled and patient and his would like him to be discharged to home today. Patient is being discharged with following instructions at the point of discharge: Follow-up with your primary care physician within a week time and likely you will need labs CBC/CMP/magnesium/phosphorus. You received injection for right great trochanteric bursitis. Follow-up with orthopedics in 1 to 2 weeks time. You will be discharged on pain medications for few days worth, if ongoing pain, you will need further evaluation by orthopedics and further pain management prescription from their office. Take your medications as prescribed. Please make sure that you are able to get your medications today by calling your pharmacy before you leave the hospital so that your treatment continuity is not broken. Home Health Attestation I certify that this patient is under my care and that I, or a physicians advertising assistant working with me, had a face to-face encounter that meets the home health [id number]-cr-[id number] encounter requirements with this patient. The encounter with the patient was in whole, or in part, for the following medical condition, which is the primary reason for home health care (list medical condition): I certify that, based on my findings, the following services are medically necessary home health services: My clinical findings support the need for the above services because: Further, I certify that my clinical findings support that this patient is homebound (i.e. absences from home require considerable and taxing effort and are for medical reasons or cheondoism services or infrequently or of short duration when for other reasons) because: Certification for Home Health Services: Based on the above findings, I certify that this patient is confined to the home and needs intermittent mcc care, physical therapy and/or speech therapy or continues to need occupational therapy. The patient is under my care, and I have initiated the establishment of the plan of care. This patient will be followed by a physician who will periodically review the plan of care. Total Time Total Time Spent Total Time Spent (In Minutes): 35 Discharge Plan Discharge Items Patient Disposition: Home - Home Health Services Reason For Visit: R HIP PAIN, AMBULATORY DYSFUNCTION Discharge Diagnosis: #R hip pain/Rt GT bursitis #Ambulatory dysfunction #hypoxia Condition on Discharge: Fair Activity: As commented below Activity Comment: continue with physical therapy Non-emergency contact: Primary Care Provider Call non-emergency contact if: you have any medication questions Follow-up/Referrals: Zev Lemus MD [Primary Care Provider] - Diet: Carb Consistent or DM2 and Heart Healthy Addtl Attending Provider Instructions: Follow-up with your primary care physician within a week time and likely you will need labs CBC/CMP/magnesium/phosphorus. You received injection for right great trochanteric bursitis. Follow-up with orthopedics in 1 to 2 weeks time. You will be discharged on pain medications for few days worth, if ongoing pain, you will need further evaluation by orthopedics and further pain management prescription from their office. Take your medications as prescribed. Please make sure that you are able to get your medications today by calling your pharmacy before you leave the hospital so that your treatment continuity is not broken. Pending Studies at Discharge: Yes Stand-Alone Forms: My [facility] Outsmart, Smoking Cessation Medications and DC Order Prescriptions: New diclofenac sodium [Voltaren Arthritis Pain] 1 % Gel 4 g EXT Q6H 7 Days Qty: 100 0RF oxycodone-acetaminophen [Percocet] 5-325 mg tablet 1 tab PO Q6H PRN (Reason: pain (scale score 7-10)) 5 Days Qty: 20 0RF Continued clopidogrel [Plavix] 75 mg Tablet 75 mg PO QAM lisinopril 10 mg Tablet 10 mg PO QPM nitroglycerin [Nitrostat] 0.4 mg Tablet, Sublingual 0.4 mg Sublingual DIRECTED PRN (Reason: Chest Pain) prednisone 5 mg tablet 5 mg PO DAILY PRN (Reason: RA FLARE UPS) amlodipine [Norvasc] 5 mg tablet 5 mg PO QAM Repatha SureClick 140 mg/mL pen injector 140 mg SUBCUT Q14D gabapentin 100 mg capsule 100 mg PO TID metoprolol succinate 25 mg tablet extended release 24 hr 25 mg PO QAM nystatin 100,000 unit/gram powder 1 applic TOPICAL TID PRN (Reason: Rash) Xultophy 100/3.6 100 unit-3.6 mg /mL (3 mL) insulin pen 25 unit SUBCUT QAM Eliquis 5 mg tablet 5 mg PO BID Qty: 74 0RF Rx Instructions: Take 10mg (two tablets) by mouth TWICE A DAY starting tonight 09/28/24 for 12 more doses. Then take 5mg (1 tablet) by mouth TWICE A DAY. Discharge Orders: Discharge Order (Routine); Ordered 11/29/24 Ordered By: Shell Martinez Admission Data Admit Date/Time: 11/26/24 12:05 Attending Provider: Shell Martinez Admit Provider: Frederick Power Primary Care Provider: Zev Lemus Other Providers: Frederick Power; Drake Romero
[2024-11-29 13:27] VITALS: PULSE 104
== END 2024-11-29 14:17 | disposition home health service (06) | DRG 558 ==
LOC: ED 07:57 → 2N 12:05 → SUATTDRO 12:05 → 2N 14:03